=== PATIENT | female | born 1950 | race Caucasian/White ===

== ENCOUNTER → 2016-07-07 | Outpatient (CLI) | payer MEDICARE ==
[~2016-07-07] MED LIST: AMBIEN10 M1 PO; AMOXICILLIN500 M1 PO; ANASPAZ0.125 MG PO; ANTIVERT/2525 MG PO; ATIVAN0.5 MG PO; ATORVASTATIN CA20 M1 PO; AUGMENTIN 875 M1 TAB PO; BACTROBAN2% TP; CLARITIN10 MG PO; DARVOCET N 1001 TAB PO; DITROPAN XL10 MG PO; DOXYCYCLINE100 M3 PO; ECO-5325 MG PO; ERGOCALCIFER50000 IU PO; FAMOTIDINE20 MG PO; FLEXERIL10 MG PO; FLOVENT 110 M110 MCG INH; HYDROCHLOROTHIA25 M1 PO; HYDROCORTISONE2.5% R; K-TAB10 MEQ PO; KLONOPIN0.5 MG; LEVSIN0.125 M1 PO; LEXAPRO20 MG PO; LIDEX 0.05% CRE15 GM T; Lidex 0.05% Oin15 GM T; MIRALAX17 GM/PACK; MORPHINE S10 MG/5 M2 PO; MORPHINE SULFAT15 M5 PO; MORPHINE SULFAT15 MG PO; MS CONTIN PO; MS CONTIN15 MG PO; NASONEX0.05 MG/AC NS; OMEPRAZOLE D/R20 MG PO; PREDNISONE10 MG PO; PRILOSEC10 M1 PO; PRILOSEC20 MG PO; PROVENTIL0.09 MG/AC IH; RESTASIS 0.4 M0.4 M1 OP; RESTASIS0.05% OP; SUPER EPA 2002000 MG PO; TASIGNA200 MG PO; TEMAZEPAM30 MG PO; ULTRAM50 MG PO; VITAMIN D32000 IU; VITAMIN D50000 I3 PO; ZANTAC150 MG PO; ZOFRAN4 MG PO; ZOFRAN8 M1 PO
== END | disposition home or self-care (01) ==
LOC: LAB 13:18
DX: D64.9 Anemia, unspecified (principal); R53.83 Other fatigue

== ENCOUNTER → 2016-08-19 | Outpatient (CLI) | payer MEDICARE | END | disposition home or self-care (01) | LOC: US 13:23 | DX: M79.602 Pain in left arm (principal); R21 Rash and other nonspecific skin eruption; R60.0 Localized edema ==

== ENCOUNTER → 2016-09-23 | Outpatient (CLI) | payer MEDICARE | LOC: RAD 10:09 | DX: M25.572 Pain in left ankle and joints of left foot (principal); M25.472 Effusion, left ankle ==

== ENCOUNTER 2016-10-29 06:16 | Inpatient (IN) | payer MEDICARE ==
[~2016-10-29] VITALS: Ht 147.3 cm; Wt 93.9 kg
[2016-10-29] VITALS (8 sets, daily range): BP systolic 96–164; BP diastolic 50–84
[2016-10-29 06:41] LABS: BASO # 0.1 10*3/uL (0.0-0.1); BASO % 0.6 % (0.0-1.0); EOS % 0.2 % (1.0-4.0); IG # 0.1 10*3/uL (0.0-0.1); LYMPH % 6.5 % (27.0-41.0); MEAN CELL VOLUME 89.2 fl (81.0-99.0); MEAN CORPUSCULAR HGB CONC 32.6 g/dl (33.0-37.0); MEAN PLATELET VOLUME 10.5 fl (9.6-12.3); MONO # 0.8 10*3/uL (0.1-1.0); MONO % 4.9 % (3.0-9.0); NEUT % 87.4 % (47.0-73.0); PLATELET COUNT AUTOMATED 292 10*3/uL (130-400); RED BLOOD COUNT 4.82 10*6/uL (4.10-5.10); RED CELL DISTRI WIDTH 12.3 % (0-14.5)
[2016-10-29] MEDS ORDERED: RESTORIL30 M1 PO (06:43)
[2016-10-29] MEDS ORDERED: KENALOG 0.1%80 GM T (06:44)
[2016-10-29 06:49] LABS: PROTHROMBIN TIME 10.4 SECONDS (9.0-12.4)
[2016-10-29 06:57] LABS: ALBUMIN 3.8 gm/dl (3.1-4.5); ALKALINE PHOSPHATASE 93 U/L (45-117); BILIRUBIN, TOTAL 0.8 mg/dl (0.2-1.0); BUN 7 mg/dl (7-24); CARBON DIOXIDE 28 mmol/L (21-32); CHLORIDE 99 mmol/L (98-107); EST GLOM FILT AFRICAN AMERICAN > 60 ml/min; GLUCOSE 151 mg/dL (65-99); MAGNESIUM 1.9 mg/dL (1.5-2.1); POTASSIUM 3.7 mmol/L (3.5-5.1); SGOT/AST 43 IU/L (3-35); SGPT/ALT 33 U/L (12-78); SODIUM 138 mmol/L (136-145); TOTAL PROTEIN 6.9 gm/dL (6.4-8.2)
[2016-10-29 07:00] LABS: TROPONIN I 0.334 ng/ml (<0.045)
[2016-10-29] MEDS ORDERED: FERROUS SULFAT325 MG PO (10:54)
[2016-10-29 11:49] LABS: CKMB 3.1 ng/ml (0.5-3.6)
[2016-10-29 11:51] LABS: TROPONIN I 0.296 ng/ml (<0.045)
[2016-10-29 14:15] LABS: BILIRUBIN NEGATIVE (NEGATIVE); BLOOD NEGATIVE (NEGATIVE); CLARITY SL CLOUDY (CLEAR); COLOR YELLOW (YELLOW); GLUCOSE NEGATIVE (NEGATIVE); KETONE NEGATIVE (NEGATIVE); LEUKO ESTERASE NEGATIVE (NEGATIVE); NITRITE NEGATIVE (NEGATIVE); PH 5.5 (5.0-9.0); PROTEIN NEGATIVE (NEGATIVE)
[2016-10-29 14:22] LABS: WBC 0-2 wbc/hpf (0-5)
[2016-10-29 14:23] LABS: EPITHELIAL CELLS 0-2; URINE REFLEX COMMENT NO (NO)
[2016-10-30] VITALS: BP 150/58
[2016-10-30 06:03] LABS: BASO # 0.1 10*3/uL (0.0-0.1); BASO % 0.6 % (0.0-1.0); EOS # 0.1 10*3/uL (0.0-0.4); HEMATOCRIT 38.4 % (37.0-47.0); HEMOGLOBIN 12.2 g/dl (12.0-16.0); IG # 0.1 10*3/uL (0.0-0.1); LYMPH # 2.9 10*3/uL (1.3-4.4); LYMPH % 23.4 % (27.0-41.0); MEAN CELL VOLUME 92.1 fl (81.0-99.0); MEAN CORPUSCULAR HGB 29.3 pg (27.0-31.0); MEAN CORPUSCULAR HGB CONC 31.8 g/dl (33.0-37.0); MEAN PLATELET VOLUME 10.5 fl (9.6-12.3); MONO # 1.3 10*3/uL (0.1-1.0); MONO % 10.4 % (3.0-9.0); NEUT % 64.2 % (47.0-73.0); PLATELET COUNT AUTOMATED 236 10*3/uL (130-400); RED BLOOD COUNT 4.17 10*6/uL (4.10-5.10); RED CELL DISTRI WIDTH 12.5 % (0-14.5); WHITE BLOOD COUNT 12.5 10*3/uL (4.8-10.8)
[2016-10-30 06:23] LABS: PROTHROMBIN TIME 10.8 SECONDS (9.0-12.4)
[2016-10-30 06:28] LABS: BUN 7 mg/dl (7-24); CARBON DIOXIDE 27 mmol/L (21-32); CHLORIDE 110 mmol/L (98-107); EST GLOM FILT AFRICAN AMERICAN > 60 ml/min; GLUCOSE 111 mg/dL (65-99); MAGNESIUM 1.7 mg/dL (1.5-2.1); PHOSPHOROUS 1.8 mg/dL (2.5-4.9); POTASSIUM 3.7 mmol/L (3.5-5.1); SODIUM 142 mmol/L (136-145)
[2016-10-30 06:38] LABS: FREE T4 0.98 ng/dl (0.76-1.46); THYROID STIM HORMONE (HS) 0.648 uIU/ml (0.358-4.75)
[2016-10-30 06:52] LABS: VITAMIN D, 25-HYDROXY 41.4 ng/mL (30-100)
[2016-10-30 06:53] LABS: FOLIC ACID 11.49 ng/mL (>5.38)
[2016-10-30 08:00] VITALS: BP 152/72
[2016-10-30 16:00] VITALS: BP 156/85
[2016-10-31] MEDS ORDERED: ZOFRAN ODT4 MG SL ×2 (23:36→23:37)
[2016-10-31] MEDS ORDERED: FLAGYL500 MG PO ×2 (23:36→23:38)
== END 2016-10-30 18:19 | disposition home or self-care (01) | DRG 872 ==
LOC: ED 06:16 → 5E 08:47 → EDHOLD 08:47 → 5E 09:08
PROVIDERS: Emergency Medicine Emergency Medical Services; Internal Medicine
PROC: 4A02XM4 Measurement of Cardiac Total Activity, External Approach (ICD-10-PCS; principal; 2016-10-30)
PROC: 3E073KZ Introduction of Other Diagnostic Substance into Coronary Artery, Percutaneous Approach (ICD-10-PCS; 2016-10-30)
DX: A41.9 Sepsis, unspecified organism (principal); C92.10 Chronic myeloid leukemia, BCR/ABL-positive, not having achieved remission; Z68.42 Body mass index [BMI] 45.0-49.9, adult; F41.9 Anxiety disorder, unspecified; Z85.3 Personal history of malignant neoplasm of breast; F32.9 Major depressive disorder, single episode, unspecified; K21.9 Gastro-esophageal reflux disease without esophagitis; Z90.49 Acquired absence of other specified parts of digestive tract; Z90.710 Acquired absence of both cervix and uterus; Z87.891 Personal history of nicotine dependence; Z82.49 Family history of ischemic heart disease and other diseases of the circulatory system; Z88.1 Allergy status to other antibiotic agents; Z88.8 Allergy status to other drugs, medicaments and biological substances; Z88.2 Allergy status to sulfonamides; K52.9 Noninfective gastroenteritis and colitis, unspecified; R11.2 Nausea with vomiting, unspecified; E66.01 Morbid (severe) obesity due to excess calories

== ENCOUNTER 2016-10-31 21:27 | Emergency (ER) | payer MEDICARE ==
[~2016-10-31] VITALS: Ht 147.3 cm; Wt 88.5 kg
[~2016-10-31 21:27] MED LIST changes: +FERROUS SULFAT325 MG PO; +KENALOG 0.1%80 GM T; +RESTORIL30 M1 PO
[2016-10-31 21:34] VITALS: BP 203/85
[2016-10-31 22:05] LABS: BASO # 0.1 10*3/uL (0.0-0.1); BASO % 0.4 % (0.0-1.0); EOS # 0.1 10*3/uL (0.0-0.4); EOS % 0.4 % (1.0-4.0); HEMATOCRIT 38.5 % (37.0-47.0); IG # 0.1 10*3/uL (0.0-0.1); LYMPH # 1.7 10*3/uL (1.3-4.4); MEAN CELL VOLUME 86.7 fl (81.0-99.0); MEAN CORPUSCULAR HGB 29.3 pg (27.0-31.0); MEAN CORPUSCULAR HGB CONC 33.8 g/dl (33.0-37.0); MEAN PLATELET VOLUME 10.3 fl (9.6-12.3); MONO # 1.2 10*3/uL (0.1-1.0); MONO % 7.7 % (3.0-9.0); NEUT # 12.6 10*3/uL (2.3-7.9); NEUT % 80.1 % (47.0-73.0); PLATELET COUNT AUTOMATED 271 10*3/uL (130-400); RED BLOOD COUNT 4.44 10*6/uL (4.10-5.10); RED CELL DISTRI WIDTH 12.1 % (0-14.5); WHITE BLOOD COUNT 15.7 10*3/uL (4.8-10.8)
[2016-10-31 22:15] LABS: PROTHROMBIN TIME 10.8 SECONDS (9.0-12.4)
[2016-10-31 22:22] LABS: ALBUMIN 3.3 gm/dl (3.1-4.5); ALKALINE PHOSPHATASE 73 U/L (45-117); BILIRUBIN, TOTAL 0.6 mg/dl (0.2-1.0); BUN 5 mg/dl (7-24); CARBON DIOXIDE 26 mmol/L (21-32); CHLORIDE 107 mmol/L (98-107); EST GLOM FILT AFRICAN AMERICAN > 60 ml/min; GLUCOSE 140 mg/dL (65-99); POTASSIUM 3.2 mmol/L (3.5-5.1); SGOT/AST 25 IU/L (3-35); SGPT/ALT 25 U/L (12-78); SODIUM 142 mmol/L (136-145); TOTAL PROTEIN 6.4 gm/dL (6.4-8.2)
[2016-10-31 22:25] LABS: TROPONIN I 0.068 ng/ml (<0.045)
[2016-10-31] MEDS ORDERED: ZOFRAN ODT4 MG SL ×2 (23:36→23:37)
[2016-10-31] MEDS ORDERED: FLAGYL500 MG PO ×2 (23:36→23:38)
== END 2016-11-01 00:01 | disposition home or self-care (01) ==
LOC: ED 21:27
PROVIDERS: Physician Assistant
DX: K52.9 Noninfective gastroenteritis and colitis, unspecified (principal); J90 Pleural effusion, not elsewhere classified; R79.89 Other specified abnormal findings of blood chemistry; R68.83 Chills (without fever); Z88.1 Allergy status to other antibiotic agents; Z88.8 Allergy status to other drugs, medicaments and biological substances; Z88.2 Allergy status to sulfonamides; Z79.899 Other long term (current) drug therapy; Z87.891 Personal history of nicotine dependence

== ENCOUNTER 2016-11-28 15:18 | Emergency (ER) | payer MEDICARE ==
[~2016-11-28] VITALS: Ht 147.3 cm; Wt 89.8 kg
[~2016-11-28 15:18] MED LIST changes: +FLAGYL500 MG PO; +ZOFRAN ODT4 MG SL
[2016-11-28 15:25] VITALS: BP 156/71
== END 2016-11-28 16:35 | disposition home or self-care (01) ==
LOC: ED 15:18
DX: S00.03XA Contusion of scalp, initial encounter (principal); R03.0 Elevated blood-pressure reading, without diagnosis of hypertension; K21.9 Gastro-esophageal reflux disease without esophagitis; Z88.1 Allergy status to other antibiotic agents; Z88.2 Allergy status to sulfonamides; Z88.8 Allergy status to other drugs, medicaments and biological substances; Z87.891 Personal history of nicotine dependence; Z90.49 Acquired absence of other specified parts of digestive tract; W22.8XXA Striking against or struck by other objects, initial encounter; Y93.89 Activity, other specified; Y92.9 Unspecified place or not applicable; Y99.9 Unspecified external cause status

== ENCOUNTER 2017-04-21 16:25 | Emergency (ER) | payer MEDICARE ==
[~2017-04-21] VITALS: Ht 147.3 cm; Wt 87.5 kg
[2017-04-21 16:57] VITALS: BP 136/69
[2017-04-21] MEDS ORDERED: MOTRIN 600 MG E4 TAB PO (19:07)
== END 2017-04-21 18:59 | disposition home or self-care (01) ==
LOC: ED 16:25
DX: M77.9 Enthesopathy, unspecified (principal); M25.532 Pain in left wrist; Z90.710 Acquired absence of both cervix and uterus; Z90.49 Acquired absence of other specified parts of digestive tract; Z98.51 Tubal ligation status; Z98.890 Other specified postprocedural states; Z87.891 Personal history of nicotine dependence; Z79.899 Other long term (current) drug therapy; Z88.1 Allergy status to other antibiotic agents; Z88.6 Allergy status to analgesic agent; Z88.8 Allergy status to other drugs, medicaments and biological substances; Z88.2 Allergy status to sulfonamides

== ENCOUNTER → 2017-09-29 | Outpatient (CLI) | payer MEDICARE ==
[~2017-09-29] MED LIST changes: +ASPIRIN ADULT L81 M1 PO; +BUSPAR5 MG PO; +LIPITOR20 MG PO; +MOTRIN 600 MG E4 TAB PO; +NEURONTIN300 MG PO; +PHENERGAN25 M3 PO; +VITAMIN D5000 UNIT PO
== END | disposition home or self-care (01) ==
LOC: US 16:39
DX: K76.0 Fatty (change of) liver, not elsewhere classified (principal); K21.9 Gastro-esophageal reflux disease without esophagitis; Z90.710 Acquired absence of both cervix and uterus

== ENCOUNTER 2017-10-07 07:57 | Inpatient (IN) | payer MEDICARE ==
[~2017-10-07] VITALS: Ht 147.3 cm; Wt 88.9 kg
[2017-10-07] VITALS (9 sets, daily range): BP systolic 119–211; BP diastolic 55–96
--- NOTE | ~2017-10-07 | O ---
[place], [place] OPERATIVE NOTE NAME: ELIDA WILKINS [facility] #: [id number] UNIT #: [id number] ROOM: 525 DOCTOR: RISA MILLERSELMA BIRTHDATE: [birth year] DOS: 10/08/2017 HISTORY: The patient is a 66-year-old who has presented with chief complaint of epigastric pain, abdominal pain, nonspecific, history of chronic myelogenous leukemia. The patient has been on the chemotherapy therapy for the past 12 years. At the time of admission, her white blood cell was 13. H and H of 14 and 44, platelet of 286, neutrophils 10. Lactic acid was 3.8. INR of 0.9. Comprehensive metabolic panel, GFR greater than 60. Liver function tests normal. Lipase normal. BNP of 1200+. Chest x-ray, borderline cardiomegaly. CT scan of the head normal. CT scan of the abdomen and pelvis was done, there is no bowel wall thickening; however, wall inflammation in the stomach was considered, diverticulosis and no focal inflammatory disease reported. The pancreatic atrophy has been mentioned gallbladder absent. No hydronephrosis, no lymphadenopathy. I do not see any specific comment on spleen and liver in this report. PAST MEDICAL HISTORY: Associated gastroesophageal reflux, obesity, CML, breast carcinoma, cardiac dysrhythmia history, pericarditis history, and pleural effusion history. PAST SURGICAL HISTORY: T and A, lumpectomy left breast, cholecystectomy, exploratory laparotomy, hysterectomy, and tubal ligation. SOCIAL HISTORY: Has stopped smoking, nonalcohol consumer. FAMILY HISTORY: Noncontributory. ALLERGIES: QUINOLONE, FENTANYL, SULFA, TAPE, CIPROFLOXACIN, AND TOPAMAX. MEDICATIONS: Reviewed including aspirin and omeprazole. PROCEDURE: Today's procedure part of investigation is panendoscopy and colonoscopy. PREMEDICATION: Propofol. SCOPE: Olympus forward-viewing gastroscope Q10 video. REPORT: After putting the patient in left lateral position and application of lubricant to the scope, the scope was introduced; thereafter, under direct visualization, advanced through the length of esophagus without difficulty with trace of esophageal varicosity along the length of the esophagus. Noticed size small hiatal hernia seen. Gastric pouch was entered. Bile reflux gastritis noted. Antral biopsy obtained. Duodenal bulb, second and third part within normal limit. No gastric varicosity identified. The patient was gradually extubated, tolerated the procedure well. IMPRESSION: Trace esophageal varicosity, bile reflux gastritis, small hiatal hernia about 2 cm. [place], [place] OPERATIVE NOTE NAME: ELIDA WILKINS UNIT #: [id number] ROOM: 525 DOCTOR: RISA MILLER,SELMA BIRTHDATE: [birth year] PLAN AND DISCUSSION: We are going to start her on Protonix 40 mg daily and managing symptomatology of upper GI. On the other hand, we are going to check her colon today for concerns that she has had hematologic as well as breast carcinoma and abdominal pain in addition. PROCEDURE: Today's procedure part of investigation is colonoscopy. PREMEDICATION: Propofol. SCOPE: Olympus forward-viewing colonoscope 10L video. REPORT: After putting the patient in left lateral position and application of lubricant to the scope, the scope was introduced. Thereafter, under direct visualization, I advanced through the length of colon without difficulty. Colonoscopy within normal limit. Base of the cecum explored, appendiceal orifice identified, and ileocecal valve was defined. Scope gradually withdrawn under circumferential fashion. Mucosal vascularity carefully examined. No other pathology identified. The patient tolerated the procedure well. IMPRESSION: Normal colonoscopic examination. We are able to proceed with normal regular diet and symptomatic management otherwise. Blood work is not compromised and she is on multiple medications to restart all medicines as reviewed. CT scan has been reviewed. Labs reviewed. SELMA LORD MD CM:OPRECORD:OPERATIVE NOTE [id number] SELMA LORD MD 10/13/17 1624 interface
[~2017-10-07 07:57] MED LIST changes: -ASPIRIN ADULT L81 M1 PO; -BUSPAR5 MG PO; -LIPITOR20 MG PO; -NEURONTIN300 MG PO; -PHENERGAN25 M3 PO; -VITAMIN D5000 UNIT PO
[2017-10-07 08:36] LABS: BASO # 0.1 10*3/uL (0.0-0.1); EOS # 0.3 10*3/uL (0.0-0.4); HEMATOCRIT 44.3 % (37.0-47.0); HEMOGLOBIN 14.5 g/dl (12.0-16.0); LYMPH # 1.9 10*3/uL (1.3-4.4); LYMPH % 14.4 % (27.0-41.0); MEAN CELL VOLUME 90.2 fl (81.0-99.0); MEAN CORPUSCULAR HGB 29.5 pg (27.0-31.0); MEAN CORPUSCULAR HGB CONC 32.7 g/dl (33.0-37.0); MEAN PLATELET VOLUME 10.8 fl (9.6-12.3); MONO # 0.7 10*3/uL (0.1-1.0); MONO % 5.4 % (3.0-9.0); NEUT # 10.2 10*3/uL (2.3-7.9); NEUT % 76.6 % (47.0-73.0); PLATELET COUNT AUTOMATED 286 10*3/uL (130-400); RED BLOOD COUNT 4.91 10*6/uL (4.10-5.10); RED CELL DISTRI WIDTH 12.2 % (0-14.5); WHITE BLOOD COUNT 13.4 10*3/uL (4.8-10.8)
[2017-10-07 08:58] LABS: ACT PARTIAL THROMBO TIME 22.5 SECONDS (20.8-31.5); INTERNATIONAL NORM RATIO 0.9 (2.0-3.5)
[2017-10-07 09:10] LABS: ALBUMIN 3.8 gm/dl (3.1-4.5); ALKALINE PHOSPHATASE 93 U/L (45-117); BUN 7 mg/dl (7-24); CHLORIDE 105 mmol/L (98-107); CREATININE 0.84 mg/dL (0.55-1.02); LIPASE 70 U/L (73-393); POTASSIUM 4.2 mmol/L (3.5-5.1); SGOT/AST 25 IU/L (3-35); SGPT/ALT 25 U/L (12-78); SODIUM 142 mmol/L (136-145); TOTAL PROTEIN 6.6 gm/dL (6.4-8.2)
[2017-10-07 09:12] LABS: TROPONIN I < 0.015 ng/ml (<0.045)
[2017-10-07 09:53] LABS: BILIRUBIN NEGATIVE (NEGATIVE); BLOOD NEGATIVE (NEGATIVE); CLARITY CLEAR (CLEAR); COLOR YELLOW (YELLOW); GLUCOSE NEGATIVE (NEGATIVE); KETONE NEGATIVE (NEGATIVE); LEUKO ESTERASE NEGATIVE (NEGATIVE); NITRITE NEGATIVE (NEGATIVE); PH 6.5 (5.0-9.0); SPECIFIC GRAVITY <= 1.005 (1.005-1.030); UROBILINOGEN 0.2 E.U./dl (0.2-1.0)
[2017-10-07 10:04] LABS: BACTERIA TRACE
[2017-10-07] MEDS ORDERED: VITAMIN D5000 UNIT PO (13:53)
[2017-10-07] MEDS ORDERED: LIPITOR20 MG PO (13:53)
[2017-10-07] MEDS ORDERED: ASPIRIN ADULT L81 M1 PO (13:53)
[2017-10-07] MEDS ORDERED: BUSPAR5 MG PO (13:54)
[2017-10-07] MEDS ORDERED: CLARITIN10 MG PO (13:54)
[2017-10-07] MEDS ORDERED: NEURONTIN300 MG PO (13:54)
[2017-10-08] VITALS (9 sets, daily range): BP systolic 128–195; BP diastolic 55–90
[2017-10-08 06:30] LABS: BASO # 0.1 10*3/uL (0.0-0.1); EOS # 0.4 10*3/uL (0.0-0.4); EOS % 2.9 % (1.0-4.0); HEMATOCRIT 40.1 % (37.0-47.0); HEMOGLOBIN 12.8 g/dl (12.0-16.0); LYMPH # 3.1 10*3/uL (1.3-4.4); LYMPH % 22.4 % (27.0-41.0); MEAN CELL VOLUME 92.2 fl (81.0-99.0); MEAN CORPUSCULAR HGB 29.4 pg (27.0-31.0); MEAN CORPUSCULAR HGB CONC 31.9 g/dl (33.0-37.0); MEAN PLATELET VOLUME 10.5 fl (9.6-12.3); MONO # 1.3 10*3/uL (0.1-1.0); MONO % 9.2 % (3.0-9.0); NEUT # 8.9 10*3/uL (2.3-7.9); PLATELET COUNT AUTOMATED 252 10*3/uL (130-400); RED BLOOD COUNT 4.35 10*6/uL (4.10-5.10); RED CELL DISTRI WIDTH 12.3 % (0-14.5); WHITE BLOOD COUNT 13.9 10*3/uL (4.8-10.8)
[2017-10-08 07:21] LABS: ALBUMIN 3.3 gm/dl (3.1-4.5); ALKALINE PHOSPHATASE 83 U/L (45-117); BUN 4 mg/dl (7-24); CHLORIDE 111 mmol/L (98-107); CHOLESTEROL 121 mg/dL (<200); HDL CHOLESTEROL 56 mg/dl (40-60); LDL CHOLESTEROL 36 mg/dL (9-159); PHOSPHOROUS 3.6 mg/dL (2.5-4.9); POTASSIUM 3.6 mmol/L (3.5-5.1); SGOT/AST 21 IU/L (3-35); SGPT/ALT 20 U/L (12-78); SODIUM 145 mmol/L (136-145); TOTAL PROTEIN 5.8 gm/dL (6.4-8.2); TRIGLYCERIDES 145 mg/dl (<150); VLDL CHOLESTEROL 29 mg/dL (6-40)
[2017-10-08 07:22] LABS: FREE T4 0.97 ng/dl (0.76-1.46)
[2017-10-08 07:32] LABS: VITAMIN D, 25-HYDROXY 30.3 ng/mL (30-100)
[2017-10-09] VITALS: BP 153/58
[2017-10-09 08:00] VITALS: BP 123/92
[2017-10-09 12:00] VITALS: BP 142/52
[2017-10-09] MEDS ORDERED: PHENERGAN25 M3 PO (12:52)
== END 2017-10-09 14:22 | disposition home or self-care (01) | DRG 392 ==
LOC: ED 07:57 → EDHOLD 09:37 → 5E 09:37
PROVIDERS: Emergency Medicine; Registered Nurse
PROC: 0DB68ZX Excision of Stomach, Via Natural or Artificial Opening Endoscopic, Diagnostic (ICD-10-PCS; principal; 2017-10-08)
PROC: 0DJD8ZZ Inspection of Lower Intestinal Tract, Via Natural or Artificial Opening Endoscopic (ICD-10-PCS; principal; 2017-10-08)
DX: K29.70 Gastritis, unspecified, without bleeding (principal); I85.00 Esophageal varices without bleeding; C92.10 Chronic myeloid leukemia, BCR/ABL-positive, not having achieved remission; C92.90 Myeloid leukemia, unspecified, not having achieved remission; E44.1 Mild protein-calorie malnutrition; E66.01 Morbid (severe) obesity due to excess calories; Z68.41 Body mass index [BMI] 40.0-44.9, adult; K52.9 Noninfective gastroenteritis and colitis, unspecified; R73.9 Hyperglycemia, unspecified; K21.9 Gastro-esophageal reflux disease without esophagitis; F41.9 Anxiety disorder, unspecified; F32.9 Major depressive disorder, single episode, unspecified; K44.9 Diaphragmatic hernia without obstruction or gangrene; K57.90 Diverticulosis of intestine, part unspecified, without perforation or abscess without bleeding; Z88.8 Allergy status to other drugs, medicaments and biological substances; Z88.2 Allergy status to sulfonamides; Z79.899 Other long term (current) drug therapy; Z79.82 Long term (current) use of aspirin; Z85.3 Personal history of malignant neoplasm of breast; Z90.89 Acquired absence of other organs; Z90.49 Acquired absence of other specified parts of digestive tract; Z90.710 Acquired absence of both cervix and uterus; Z98.51 Tubal ligation status; Z87.891 Personal history of nicotine dependence; Z82.49 Family history of ischemic heart disease and other diseases of the circulatory system; Z83.3 Family history of diabetes mellitus; Z83.6 Family history of other diseases of the respiratory system; Z92.21 Personal history of antineoplastic chemotherapy

== ENCOUNTER 2018-01-31 14:16 | Inpatient (IN) | payer MEDICARE ==
[~2018-01-31] VITALS: Ht 144.7 cm; Wt 90.4 kg
--- NOTE | ~2018-01-31 | EKG ---
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
[~2018-01-31 14:16] MED LIST changes: +ASPIRIN ADULT L81 M1 PO; +BUSPAR5 MG PO; +LIPITOR20 MG PO; +NEURONTIN300 MG PO; +PHENERGAN25 M3 PO; +VITAMIN D5000 UNIT PO
[2018-01-31 14:17] VITALS: BP 161/73
[2018-01-31 14:57] LABS: BASO # 0.1 10*3/uL (0.0-0.1); BASO % 0.4 % (0.0-1.0); HEMATOCRIT 40.8 % (37.0-47.0); HEMOGLOBIN 14.1 g/dl (12.0-16.0); LYMPH # 1.9 10*3/uL (1.3-4.4); MEAN CELL VOLUME 85.5 fl (81.0-99.0); MEAN CORPUSCULAR HGB 29.6 pg (27.0-31.0); MEAN CORPUSCULAR HGB CONC 34.6 g/dl (33.0-37.0); MEAN PLATELET VOLUME 10.4 fl (9.6-12.3); MONO # 0.9 10*3/uL (0.1-1.0); MONO % 4.4 % (3.0-9.0); NEUT # 17.9 10*3/uL (2.3-7.9); NEUT % 85.5 % (47.0-73.0); PLATELET COUNT AUTOMATED 316 10*3/uL (130-400); RED BLOOD COUNT 4.77 10*6/uL (4.10-5.10); RED CELL DISTRI WIDTH 12.4 % (0-14.5)
[2018-01-31 15:05] LABS: ACT PARTIAL THROMBO TIME 23.4 SECONDS (20.8-31.5)
[2018-01-31 15:15] LABS: ALBUMIN 3.6 gm/dl (3.1-4.5); ALKALINE PHOSPHATASE 84 U/L (45-117); BUN 5 mg/dl (7-24); CHLORIDE 103 mmol/L (98-107); CREATININE 0.91 mg/dL (0.55-1.02); POTASSIUM 3.3 mmol/L (3.5-5.1); SGOT/AST 17 IU/L (3-35); SGPT/ALT 21 U/L (12-78); SODIUM 138 mmol/L (136-145); TOTAL PROTEIN 6.9 gm/dL (6.4-8.2)
[2018-01-31 15:17] LABS: TROPONIN I 0.082 ng/ml (<0.045)
[2018-01-31 15:53] VITALS: BP 155/68
[2018-01-31 16:30] VITALS: BP 134/63
[2018-01-31] MEDS ORDERED: XIIDRA1 EACH OP (16:48)
[2018-01-31] MEDS ORDERED: MIRALAX POWDER17 G1 PO (16:49)
[2018-01-31 20:00] VITALS: BP 147/58
[2018-01-31 21:03] LABS: BILIRUBIN NEGATIVE (NEGATIVE); CLARITY CLEAR (CLEAR); COLOR YELLOW (YELLOW); GLUCOSE NEGATIVE (NEGATIVE); KETONE NEGATIVE (NEGATIVE)
[2018-01-31 21:04] LABS: BLOOD NEGATIVE (NEGATIVE); PH 6.5 (5.0-9.0); SPECIFIC GRAVITY < 1.005 (1.005-1.030)
[2018-01-31 21:06] LABS: BACTERIA TRACE; LEUKO ESTERASE NEGATIVE (NEGATIVE); NITRITE NEGATIVE (NEGATIVE); RBC 0-2 rbc/hpf (0-2); WBC 0-2 wbc/hpf (0-5)
[2018-02-01] VITALS: BP 132/61
[2018-02-01 05:15] LABS: BUN 6 mg/dl (7-24); CHLORIDE 106 mmol/L (98-107); CREATININE 0.59 mg/dL (0.55-1.02); POTASSIUM 3.7 mmol/L (3.5-5.1); SODIUM 140 mmol/L (136-145)
[2018-02-01 05:51] LABS: BASO # 0.1 10*3/uL (0.0-0.1); BASO % 0.5 % (0.0-1.0); EOS # 0.3 10*3/uL (0.0-0.4); EOS % 1.7 % (1.0-4.0); HEMATOCRIT 37.9 % (37.0-47.0); HEMOGLOBIN 12.8 g/dl (12.0-16.0); LYMPH # 4.5 10*3/uL (1.3-4.4); LYMPH % 24.6 % (27.0-41.0); MEAN CELL VOLUME 87.7 fl (81.0-99.0); MEAN CORPUSCULAR HGB 29.6 pg (27.0-31.0); MEAN CORPUSCULAR HGB CONC 33.8 g/dl (33.0-37.0); MEAN PLATELET VOLUME 10.9 fl (9.6-12.3); MONO # 1.5 10*3/uL (0.1-1.0); NEUT # 11.9 10*3/uL (2.3-7.9); NEUT % 64.7 % (47.0-73.0); PLATELET COUNT AUTOMATED 256 10*3/uL (130-400); RED BLOOD COUNT 4.32 10*6/uL (4.10-5.10); RED CELL DISTRI WIDTH 12.4 % (0-14.5); WHITE BLOOD COUNT 18.4 10*3/uL (4.8-10.8)
[2018-02-01 05:58] LABS: PHOSPHOROUS 3.5 mg/dL (2.5-4.9)
[2018-02-01 06:05] LABS: FREE T4 0.95 ng/dl (0.76-1.46); THYROID STIM HORMONE (HS) 2.19 uIU/ml (0.358-4.75)
[2018-02-01 07:49] LABS: VITAMIN D, 25-HYDROXY 36.5 ng/mL (30-100)
[2018-02-01 08:00] VITALS: BP 130/72
[2018-02-01 08:01] VITALS: BP 119/59
[2018-02-01 12:00] VITALS: BP 136/62
[2018-02-01 16:00] VITALS: BP 141/74
[2018-02-01 20:00] VITALS: BP 147/58
[2018-02-02] VITALS: BP 143/60
[2018-02-02 08:30] VITALS: BP 136/78
[2018-02-27] MEDS ORDERED: TASIGNA200 MG PO (23:51)
== END 2018-02-02 10:51 | disposition home or self-care (01) | DRG 313 ==
LOC: ED 14:16 → EDHOLD 15:52 → 4E 15:52
PROVIDERS: Internal Medicine; Nurse Practitioner Family
DX: R07.89 Other chest pain (principal); E87.2 Acidosis; E44.1 Mild protein-calorie malnutrition; C92.10 Chronic myeloid leukemia, BCR/ABL-positive, not having achieved remission; Z68.41 Body mass index [BMI] 40.0-44.9, adult; M79.2 Neuralgia and neuritis, unspecified; R74.8 Abnormal levels of other serum enzymes; E87.6 Hypokalemia; M25.562 Pain in left knee; K21.9 Gastro-esophageal reflux disease without esophagitis; F32.9 Major depressive disorder, single episode, unspecified; E66.01 Morbid (severe) obesity due to excess calories; R73.9 Hyperglycemia, unspecified; I35.0 Nonrheumatic aortic (valve) stenosis; F41.9 Anxiety disorder, unspecified; Z82.49 Family history of ischemic heart disease and other diseases of the circulatory system; Z82.5 Family history of asthma and other chronic lower respiratory diseases; Z88.1 Allergy status to other antibiotic agents; Z88.5 Allergy status to narcotic agent; Z88.2 Allergy status to sulfonamides; Z79.82 Long term (current) use of aspirin; Z91.048 Other nonmedicinal substance allergy status; Z79.899 Other long term (current) drug therapy; Z85.3 Personal history of malignant neoplasm of breast; Z90.710 Acquired absence of both cervix and uterus; Z98.51 Tubal ligation status; Z90.49 Acquired absence of other specified parts of digestive tract; Z87.891 Personal history of nicotine dependence; Z83.3 Family history of diabetes mellitus

== ENCOUNTER 2018-02-10 15:11 | Inpatient (IN) | payer MEDICARE ==
[~2018-02-10] VITALS: Ht 147.3 cm; Wt 93.1 kg
--- NOTE | ~2018-02-10 | PR ---
[place], [place] PROGRESS NOTE [id number] UNIT #: [id number] ROOM: 503 DOCTOR: BRANDI HELLER MD BIRTHDATE: [birth year] DOS: 02/13/2018 CARDIOLOGY PROGRESS NOTE SUBJECTIVE: The patient was seen today, 02/13/2018, at her bedside. She states that her stomach still hurts and in fact is worse than it was yesterday. She denies vomiting, but has no appetite. She believes that food is making it worse. She did have a CAT scan of the abdomen today, which was unremarkable. She moved her bowels after that, but stated that the pain got worse, nonetheless. She denies any chest pain or shortness of breath. PHYSICAL EXAMINATION: VITAL SIGNS: Her pulse is 76 and regular, blood pressure is 180/76. She weighs 93.1 kg and has a body mass index of 42.9. NECK: Supple. She has no jugular distention. Carotids are full. LUNGS: Respirations are unlabored. Her chest is clear to auscultation and percussion. She has no presacral edema. HEART: Has a regular rhythm with a fourth heart sound, but no third heart sound. ABDOMEN: Distended and diffusely tender. Bowel sounds are active. EXTREMITIES: Showed no edema. The etiology of the patient's pain is not yet clear, but certainly does not appear to be cardiac in origin. Her blood pressure remains elevated. IMPRESSIONS: 1. Abdominal pain, etiology to be determined. 2. History of CML treated with chemotherapy for several years. 3. Mild elevation in troponin without diagnostic rise and fall pattern. 4. Pharmacologic stress test 10/30/2016 showed normal myocardial perfusion with an ejection fraction of 90%. I have discussed her situation with Dr. Venkata Quiroz. He will be reviewing her CT scan and probably getting an ultrasound picture of her abdomen. If a diagnosis is not apparent then consultation with GI or Surgery may be helpful. At this point, I do not see any indication for further cardiac testing. I thank the hospitalist physicians for asking our advice regarding her care. [place], [place] PROGRESS NOTE NAME: YUVAL WILKINSABDIRAHMAN Ramsey UNIT #: [id number] ROOM: 503 DOCTOR: BRANDI HELLER MD BIRTHDATE: [birth year] BRANDI HELLER MD CM:PNTRANS 1534 5 BRANDI HELLER MD 02/14/186 interface
--- NOTE | ~2018-02-10 | PR ---
[place], [place] PROGRESS NOTE NAME: ELIDA WLIKINS [facility] #: [id number] UNIT #: [id number] ROOM: 503 DOCTOR: BRANDI HELLER MD BIRTHDATE: [birth year] DOS: 02/12/2018 SUBJECTIVE: The patient was seen at her bedside today 02/12/2018 for followup of chest discomfort. She is a 67-year-old woman who has a history of CML (chronic myelocytic leukemia). She has been treated with chemotherapy for several years. She did have acute pericarditis which required a pericardial window several years ago; however, her most recent echocardiogram done on 02/01/2018 showed no pericardial effusion and normal left ventricular filling with normal ejection fraction. She presented to the hospital on this occasion with chest pressure along with dyspnea on exertion. She did have an elevated troponin level at 0.686, but review of the records indicates that her troponin level has been mildly elevated since 10/2016. Her most recent stress test on 10/30/2016 showed normal myocardial perfusion without any evidence for ischemia. The ejection fraction was normal and calculated to be 90%. Today, the patient states that she feels "lousy." She complains of nausea and abdominal discomfort, which she states is a new problem for her. She denies any chest pain today. PHYSICAL EXAMINATION: VITAL SIGNS: Her pulse is 60 and regular, blood pressure is 157/85. She is afebrile. She weighs 93.1 kilograms. NECK: Supple. She has no jugular distention. Carotids are full. LUNGS: Respirations are unlabored. Her chest is clear. HEART: Has a regular rhythm. She has a fourth heart sound, but no third heart sound. Her PMI is not displaced. There is no precordial heave, lift, thrill, or rub. ABDOMEN: Soft and normally active. It is diffusely tender. EXTREMITIES: Showed no edema. Pedal pulses are full. Etiology of her symptoms is not yet clear. It has been over a year since her last stress test. We will continue to observe her in the hospital tomorrow, and if her symptoms do not resolve, we probably will proceed with a risk stratifying stress test on 02/14/2018. PLAN: For now, we will continue to observe her clinically. We thank the hospitalist physicians for asking our advice regarding her care. [place], [place] PROGRESS NOTE NAME: ELIDA WILKINS UNIT #: [id number] ROOM: 503 DOCTOR: BRANDI HELLER MD BIRTHDATE: [birth year] BRANDI HELLER MD CM:PNTRANS 1456 050 BRANDI HELLER MD 02/13/18 0503 interface
--- NOTE | ~2018-02-10 | EKG ---
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
--- NOTE | ~2018-02-10 | EKG ---
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
[2018-02-10 15:11] VITALS: BP 167/68
[~2018-02-10 15:11] MED LIST changes: +MIRALAX POWDER17 G1 PO; +XIIDRA1 EACH OP
[2018-02-10 15:59] LABS: HEMATOCRIT 37.9 % (37.0-47.0); HEMOGLOBIN 12.7 g/dl (12.0-16.0); MEAN CELL VOLUME 88.6 fl (81.0-99.0); MEAN CORPUSCULAR HGB 29.7 pg (27.0-31.0); MEAN CORPUSCULAR HGB CONC 33.5 g/dl (33.0-37.0); MEAN PLATELET VOLUME 10.2 fl (9.6-12.3); PLATELET COUNT AUTOMATED 256 10*3/uL (130-400); RED BLOOD COUNT 4.28 10*6/uL (4.10-5.10); RED CELL DISTRI WIDTH 12.6 % (0-14.5); WHITE BLOOD COUNT 16.7 10*3/uL (4.8-10.8)
[2018-02-10 16:19] LABS: ALBUMIN 3.4 gm/dl (3.1-4.5); ALKALINE PHOSPHATASE 101 U/L (45-117); BUN 5 mg/dl (7-24); CHLORIDE 96 mmol/L (98-107); CREATININE 0.72 mg/dL (0.55-1.02); POTASSIUM 3.7 mmol/L (3.5-5.1); SGOT/AST 18 IU/L (3-35); SGPT/ALT 27 U/L (12-78); SODIUM 131 mmol/L (136-145); TOTAL PROTEIN 6.6 gm/dL (6.4-8.2)
[2018-02-10 16:20] LABS: BASOPHILS 1 % (0-1); PLATELET SUFFICIENCY NORMAL (NORMAL); TOTAL CELLS COUNTED 100 #CELLS
[2018-02-10 16:22] LABS: TROPONIN I 0.686 ng/ml (<0.045)
[2018-02-10 17:03] VITALS: BP 148/57
[2018-02-10 17:26] LABS: BILIRUBIN NEGATIVE (NEGATIVE); BLOOD NEGATIVE (NEGATIVE); CLARITY CLEAR (CLEAR); COLOR YELLOW (YELLOW); GLUCOSE NEGATIVE (NEGATIVE); KETONE NEGATIVE (NEGATIVE); LEUKO ESTERASE TRACE (NEGATIVE); NITRITE NEGATIVE (NEGATIVE); PH 7.5 (5.0-9.0); SPECIFIC GRAVITY <= 1.005 (1.005-1.030)
[2018-02-10 17:32] LABS: BACTERIA TRACE; RBC 0-2 rbc/hpf (0-2)
[2018-02-10 17:38] VITALS: BP 186/84
[2018-02-10 20:00] VITALS: BP 172/71
[2018-02-11] VITALS (7 sets, daily range): BP systolic 101–181; BP diastolic 65–92
[2018-02-11 06:23] LABS: BUN 6 mg/dl (7-24); CHLORIDE 103 mmol/L (98-107); CREATININE 0.72 mg/dL (0.55-1.02); PHOSPHOROUS 1.4 mg/dL (2.5-4.9); POTASSIUM 3.2 mmol/L (3.5-5.1); SODIUM 138 mmol/L (136-145)
[2018-02-11 06:35] LABS: BASO % 0.2 % (0.0-1.0); EOS % 0.1 % (1.0-4.0); HEMOGLOBIN 13.8 g/dl (12.0-16.0); LYMPH # 1.2 10*3/uL (1.3-4.4); LYMPH % 6.8 % (27.0-41.0); MEAN CORPUSCULAR HGB 29.6 pg (27.0-31.0); MEAN CORPUSCULAR HGB CONC 33.7 g/dl (33.0-37.0); MEAN PLATELET VOLUME 11.2 fl (9.6-12.3); MONO # 0.7 10*3/uL (0.1-1.0); MONO % 4.2 % (3.0-9.0); NEUT # 14.8 10*3/uL (2.3-7.9); NEUT % 88.3 % (47.0-73.0); PLATELET COUNT AUTOMATED 330 10*3/uL (130-400); RED BLOOD COUNT 4.66 10*6/uL (4.10-5.10); RED CELL DISTRI WIDTH 12.5 % (0-14.5); WHITE BLOOD COUNT 16.8 10*3/uL (4.8-10.8)
[2018-02-12] VITALS: BP 114/77
[2018-02-12 06:45] LABS: BASO % 0.1 % (0.0-1.0); LYMPH # 1.5 10*3/uL (1.3-4.4); MEAN CELL VOLUME 87.6 fl (81.0-99.0); MEAN CORPUSCULAR HGB 29.7 pg (27.0-31.0); MEAN CORPUSCULAR HGB CONC 33.9 g/dl (33.0-37.0); MONO # 1.5 10*3/uL (0.1-1.0); MONO % 6.7 % (3.0-9.0); NEUT # 18.4 10*3/uL (2.3-7.9); NEUT % 85.5 % (47.0-73.0); PLATELET COUNT AUTOMATED 282 10*3/uL (130-400); RED CELL DISTRI WIDTH 12.8 % (0-14.5); WHITE BLOOD COUNT 21.5 10*3/uL (4.8-10.8)
[2018-02-12 06:49] LABS: BUN 8 mg/dl (7-24); CHLORIDE 98 mmol/L (98-107); CREATININE 0.58 mg/dL (0.55-1.02); PHOSPHOROUS 2.6 mg/dL (2.5-4.9); POTASSIUM 2.9 mmol/L (3.5-5.1); SODIUM 135 mmol/L (136-145)
[2018-02-12 06:53] LABS: HEMATOCRIT 33.3 % (37.0-47.0); HEMOGLOBIN 11.3 g/dl (12.0-16.0)
[2018-02-12 08:00] VITALS: BP 144/72
[2018-02-12 12:00] VITALS: BP 157/85
[2018-02-12 16:00] VITALS: BP 189/81
[2018-02-12 20:00] VITALS: BP 163/72
[2018-02-13] VITALS (8 sets, daily range): BP systolic 160–206; BP diastolic 70–88
[2018-02-13 05:59] LABS: HEMOGLOBIN 12.2 g/dl (12.0-16.0); MEAN CELL VOLUME 86.3 fl (81.0-99.0); MEAN CORPUSCULAR HGB 29.3 pg (27.0-31.0); MEAN CORPUSCULAR HGB CONC 33.9 g/dl (33.0-37.0); MEAN PLATELET VOLUME 10.9 fl (9.6-12.3); PLATELET COUNT AUTOMATED 299 10*3/uL (130-400); RED BLOOD COUNT 4.17 10*6/uL (4.10-5.10); RED CELL DISTRI WIDTH 12.6 % (0-14.5); WHITE BLOOD COUNT 22.9 10*3/uL (4.8-10.8)
[2018-02-13 06:12] LABS: BUN 10 mg/dl (7-24); CHLORIDE 98 mmol/L (98-107); CREATININE 0.58 mg/dL (0.55-1.02); POTASSIUM 3.2 mmol/L (3.5-5.1); SODIUM 135 mmol/L (136-145)
[2018-02-13 06:44] LABS: ATYPICAL LYMPHS 1 % (0-0); TOTAL CELLS COUNTED 100 #CELLS
[2018-02-13 06:45] LABS: PLATELET SUFFICIENCY NORMAL (NORMAL)
[2018-02-14] VITALS (7 sets, daily range): BP systolic 147–188; BP diastolic 62–92
[2018-02-14 05:51] LABS: BUN 9 mg/dl (7-24); CHLORIDE 94 mmol/L (98-107); CREATININE 0.76 mg/dL (0.55-1.02); POTASSIUM 3.1 mmol/L (3.5-5.1); SODIUM 130 mmol/L (136-145)
[2018-02-14 05:52] LABS: HEMATOCRIT 38.2 % (37.0-47.0); HEMOGLOBIN 13.3 g/dl (12.0-16.0); MEAN CELL VOLUME 84.5 fl (81.0-99.0); MEAN CORPUSCULAR HGB 29.4 pg (27.0-31.0); MEAN CORPUSCULAR HGB CONC 34.8 g/dl (33.0-37.0); MEAN PLATELET VOLUME 10.8 fl (9.6-12.3); PLATELET COUNT AUTOMATED 333 10*3/uL (130-400); RED BLOOD COUNT 4.52 10*6/uL (4.10-5.10); RED CELL DISTRI WIDTH 12.5 % (0-14.5); WHITE BLOOD COUNT 22.1 10*3/uL (4.8-10.8)
[2018-02-14 05:55] LABS: TROPONIN I 0.053 ng/ml (<0.045)
[2018-02-14 06:37] LABS: ACT PARTIAL THROMBO TIME 20.7 SECONDS (20.8-31.5); INTERNATIONAL NORM RATIO 1.1 (2.0-3.5)
[2018-02-14 07:16] LABS: PLATELET SUFFICIENCY NORMAL (NORMAL); TOTAL CELLS COUNTED 100 #CELLS
[2018-02-14] MEDS ORDERED: LISINOPRIL20 MG PO (17:54)
[2018-02-14] MEDS ORDERED: ZITHROMAX500 MG PO (17:54)
[2018-02-14] MEDS ORDERED: IMDUR SA30 MG PO (17:54)
[2018-02-14] MEDS ORDERED: LOPRESSOR25 MG PO (17:54)
[2018-02-14] MEDS ORDERED: PREDNISONE10 MG PO (17:54)
[2018-02-27] MEDS ORDERED: TASIGNA200 MG PO (23:51)
== END 2018-02-14 18:36 | disposition home health service (06) | DRG 871 ==
LOC: ED 15:11 → EDHOLD 16:43 → ICCU 16:43 → EDHOLD 16:53 → ICCU 17:27 → 5E 02-12 06:58
PROVIDERS: Family Medicine; Internal Medicine; Nurse Practitioner Family
DX: A41.9 Sepsis, unspecified organism (principal); J18.9 Pneumonia, unspecified organism; E87.1 Hypo-osmolality and hyponatremia; E44.1 Mild protein-calorie malnutrition; I16.1 Hypertensive emergency; J44.1 Chronic obstructive pulmonary disease with (acute) exacerbation; J44.0 Chronic obstructive pulmonary disease with (acute) lower respiratory infection; I31.8 Other specified diseases of pericardium; C92.10 Chronic myeloid leukemia, BCR/ABL-positive, not having achieved remission; J98.11 Atelectasis; Z68.44 Body mass index [BMI] 60.0-69.9, adult; R74.8 Abnormal levels of other serum enzymes; I49.8 Other specified cardiac arrhythmias; K21.9 Gastro-esophageal reflux disease without esophagitis; K76.0 Fatty (change of) liver, not elsewhere classified; K44.9 Diaphragmatic hernia without obstruction or gangrene; K57.30 Diverticulosis of large intestine without perforation or abscess without bleeding; I51.7 Cardiomegaly; E66.01 Morbid (severe) obesity due to excess calories; R73.9 Hyperglycemia, unspecified; R10.9 Unspecified abdominal pain; F32.9 Major depressive disorder, single episode, unspecified; F41.9 Anxiety disorder, unspecified; Z98.890 Other specified postprocedural states; Z88.4 Allergy status to anesthetic agent; Z88.1 Allergy status to other antibiotic agents; Z88.2 Allergy status to sulfonamides; Z91.048 Other nonmedicinal substance allergy status; Z90.49 Acquired absence of other specified parts of digestive tract; Z90.710 Acquired absence of both cervix and uterus; Z98.51 Tubal ligation status; Z87.891 Personal history of nicotine dependence; Z82.49 Family history of ischemic heart disease and other diseases of the circulatory system; Z82.5 Family history of asthma and other chronic lower respiratory diseases; Z83.3 Family history of diabetes mellitus; Z85.3 Personal history of malignant neoplasm of breast; Z79.82 Long term (current) use of aspirin; Z79.899 Other long term (current) drug therapy; Z92.21 Personal history of antineoplastic chemotherapy

== ENCOUNTER 2018-03-28 14:43 | Emergency (ER) | payer MEDICARE ==
[~2018-03-28] VITALS: Wt 89.8 kg
--- NOTE | ~2018-03-28 | EKG ---
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: : 1950 Requested By: LYSSA MCGHEE DNP Order Number: [id number] Reading MD: Olegario Shelton MD Measurements Intervals [place] Rate: 73 P: 83 ID: 155 QRS: 42 QRSD: 88 T: 22 QT: 450 QTc: 496 Interpretive Statements Sinus rhythm Low voltage, precordial leads Borderline prolonged QT interval Compared to ECG 02/27/2018 23:41:22 Low QRS voltage now present Myocardial infarct finding no longer present Possible ischemia no longer present Electronically Signed On 03-29-2018 4:20:49 PST by Olegario Shelton MD CM:EKGRPT:ELECTROCARDIOGRAM REPORT 1536 0420 LYSSA MCGHEE DNP EPIPHANY DRAFT REPORT LYSSA MCGHEE DNP
[~2018-03-28 14:43] MED LIST changes: +IMDUR SA30 MG PO; +LISINOPRIL20 MG PO; +LOPRESSOR25 MG PO; +ZITHROMAX500 MG PO
[2018-03-28 15:27] LABS: BASO # 0.1 10*3/uL (0.0-0.1); BASO % 0.4 % (0.0-1.0); HEMATOCRIT 33.6 % (37.0-47.0); HEMOGLOBIN 11.5 g/dl (12.0-16.0); LYMPH # 1.7 10*3/uL (1.3-4.4); LYMPH % 9.1 % (27.0-41.0); MEAN CELL VOLUME 88.4 fl (81.0-99.0); MEAN CORPUSCULAR HGB 30.3 pg (27.0-31.0); MEAN CORPUSCULAR HGB CONC 34.2 g/dl (33.0-37.0); MEAN PLATELET VOLUME 10.5 fl (9.6-12.3); MONO % 5.6 % (3.0-9.0); NEUT # 15.6 10*3/uL (2.3-7.9); NEUT % 84.5 % (47.0-73.0); PLATELET COUNT AUTOMATED 271 10*3/uL (130-400); RED CELL DISTRI WIDTH 12.5 % (0-14.5); WHITE BLOOD COUNT 18.5 10*3/uL (4.8-10.8)
[2018-03-28 15:36] LABS: ACT PARTIAL THROMBO TIME 24.5 SECONDS (20.8-31.5); INTERNATIONAL NORM RATIO 1.1 (2.0-3.5)
[2018-03-28 15:54] LABS: ALKALINE PHOSPHATASE 102 U/L (45-117); BUN 3 mg/dl (7-24); CHLORIDE 103 mmol/L (98-107); CREATININE 0.79 mg/dL (0.55-1.02); LIPASE 68 U/L (73-393); POTASSIUM 3.4 mmol/L (3.5-5.1); SGOT/AST 15 IU/L (3-35); SGPT/ALT 20 U/L (12-78); SODIUM 135 mmol/L (136-145); TOTAL PROTEIN 5.7 gm/dL (6.4-8.2); TROPONIN I < 0.015 ng/ml (<0.045)
[2018-03-28 17:51] LABS: BILIRUBIN NEGATIVE (NEGATIVE); BLOOD NEGATIVE (NEGATIVE); CLARITY SL CLOUDY (CLEAR); COLOR YELLOW (YELLOW); GLUCOSE TRACE (NEGATIVE); KETONE NEGATIVE (NEGATIVE); LEUKO ESTERASE 2+ (NEGATIVE); NITRITE NEGATIVE (NEGATIVE); PH 5.5 (5.0-9.0); SPECIFIC GRAVITY >= 1.030 (1.005-1.030); UROBILINOGEN 0.2 E.U./dl (0.2-1.0)
[2018-03-28 18:00] LABS: BACTERIA 2+; WBC TNTC wbc/hpf (0-5)
[2018-03-28 18:06] VITALS: BP 130/78
[2018-03-28] MEDS ORDERED: CEPHALEXIN500 M1 PO (18:06)
== END 2018-03-28 18:11 | disposition home or self-care (01) ==
LOC: ED 14:43
PROVIDERS: Nurse Practitioner Family
DX: R19.7 Diarrhea, unspecified (principal); N39.0 Urinary tract infection, site not specified; M79.661 Pain in right lower leg; M79.662 Pain in left lower leg; R25.2 Cramp and spasm; I10 Essential (primary) hypertension; E78.5 Hyperlipidemia, unspecified; J44.9 Chronic obstructive pulmonary disease, unspecified; K21.9 Gastro-esophageal reflux disease without esophagitis; I25.2 Old myocardial infarction; Z88.8 Allergy status to other drugs, medicaments and biological substances; Z88.2 Allergy status to sulfonamides; Z88.1 Allergy status to other antibiotic agents; Z88.6 Allergy status to analgesic agent; Z79.82 Long term (current) use of aspirin; Z79.899 Other long term (current) drug therapy; Z90.710 Acquired absence of both cervix and uterus; Z90.49 Acquired absence of other specified parts of digestive tract; Z87.891 Personal history of nicotine dependence

== ENCOUNTER 2018-03-29 20:02 | Inpatient (IN) | payer MEDICARE ==
[~2018-03-29] VITALS: Ht 147 cm; Wt 90.0 kg
[~2018-03-29 20:02] MED LIST changes: +CEPHALEXIN500 M1 PO
[2018-03-29 20:30] VITALS: BP 162/72
[2018-03-29 20:33] LABS: HEMATOCRIT 36.8 % (37.0-47.0); HEMOGLOBIN 12.6 g/dl (12.0-16.0); MEAN CELL VOLUME 88.2 fl (81.0-99.0); MEAN CORPUSCULAR HGB 30.2 pg (27.0-31.0); MEAN CORPUSCULAR HGB CONC 34.2 g/dl (33.0-37.0); MEAN PLATELET VOLUME 10.3 fl (9.6-12.3); PLATELET COUNT AUTOMATED 291 10*3/uL (130-400); RED BLOOD COUNT 4.17 10*6/uL (4.10-5.10); RED CELL DISTRI WIDTH 12.6 % (0-14.5); WHITE BLOOD COUNT 25.2 10*3/uL (4.8-10.8)
[2018-03-29 20:48] LABS: ALBUMIN 3.4 gm/dl (3.1-4.5); ALKALINE PHOSPHATASE 110 U/L (45-117); BUN 3 mg/dl (7-24); CHLORIDE 104 mmol/L (98-107); CREATININE 0.64 mg/dL (0.55-1.02); LIPASE 58 U/L (73-393); POTASSIUM 3.2 mmol/L (3.5-5.1); SGOT/AST 18 IU/L (3-35); SGPT/ALT 19 U/L (12-78); SODIUM 136 mmol/L (136-145); TOTAL PROTEIN 6.5 gm/dL (6.4-8.2)
[2018-03-29 20:54] LABS: PLATELET SUFFICIENCY NORMAL (NORMAL); TOTAL CELLS COUNTED 100 #CELLS
[2018-03-29 21:47] LABS: BILIRUBIN NEGATIVE (NEGATIVE); BLOOD NEGATIVE (NEGATIVE); CLARITY CLEAR (CLEAR); COLOR YELLOW (YELLOW); GLUCOSE TRACE (NEGATIVE); KETONE NEGATIVE (NEGATIVE); LEUKO ESTERASE TRACE (NEGATIVE); NITRITE NEGATIVE (NEGATIVE); UROBILINOGEN 0.2 E.U./dl (0.2-1.0)
[2018-03-29 22:00] LABS: BACTERIA 2+; EPITHELIAL CELLS 0-2; RBC 0-2 rbc/hpf (0-2)
[2018-03-30] VITALS (7 sets, daily range): BP systolic 115–190; BP diastolic 46–96
[2018-03-30] MEDS ORDERED: ANORO ELLIPTA1 EACH INH (00:26)
[2018-03-30 06:25] LABS: HEMATOCRIT 34.4 % (37.0-47.0); HEMOGLOBIN 11.5 g/dl (12.0-16.0); MEAN CELL VOLUME 87.5 fl (81.0-99.0); MEAN CORPUSCULAR HGB 29.3 pg (27.0-31.0); MEAN CORPUSCULAR HGB CONC 33.4 g/dl (33.0-37.0); MEAN PLATELET VOLUME 10.7 fl (9.6-12.3); PLATELET COUNT AUTOMATED 266 10*3/uL (130-400); RED BLOOD COUNT 3.93 10*6/uL (4.10-5.10); RED CELL DISTRI WIDTH 12.7 % (0-14.5); WHITE BLOOD COUNT 23.3 10*3/uL (4.8-10.8)
[2018-03-30 06:33] LABS: ALKALINE PHOSPHATASE 95 U/L (45-117); BUN 2 mg/dl (7-24); CHLORIDE 102 mmol/L (98-107); CREATININE 0.59 mg/dL (0.55-1.02); PHOSPHOROUS 2.4 mg/dL (2.5-4.9); POTASSIUM 3.3 mmol/L (3.5-5.1); SGOT/AST 16 IU/L (3-35); SGPT/ALT 20 U/L (12-78); SODIUM 134 mmol/L (136-145); TOTAL PROTEIN 5.9 gm/dL (6.4-8.2)
[2018-03-30 06:54] LABS: TOTAL CELLS COUNTED 100 #CELLS
[2018-03-30 06:55] LABS: PLATELET SUFFICIENCY NORMAL (NORMAL)
[2018-03-30 07:04] LABS: INTERNATIONAL NORM RATIO 1.1 (2.0-3.5)
[2018-03-31] VITALS: BP 164/91
[2018-03-31 06:36] LABS: HEMATOCRIT 35.8 % (37.0-47.0); HEMOGLOBIN 12.3 g/dl (12.0-16.0); MEAN CORPUSCULAR HGB 30.2 pg (27.0-31.0); MEAN CORPUSCULAR HGB CONC 34.4 g/dl (33.0-37.0); MEAN PLATELET VOLUME 10.7 fl (9.6-12.3); PLATELET COUNT AUTOMATED 284 10*3/uL (130-400); RED BLOOD COUNT 4.07 10*6/uL (4.10-5.10); RED CELL DISTRI WIDTH 12.9 % (0-14.5); WHITE BLOOD COUNT 25.5 10*3/uL (4.8-10.8)
[2018-03-31 06:57] LABS: TOTAL CELLS COUNTED 100 #CELLS
[2018-03-31 06:58] LABS: PLATELET SUFFICIENCY NORMAL (NORMAL)
[2018-03-31 07:23] LABS: CHLORIDE 101 mmol/L (98-107); POTASSIUM 3.3 mmol/L (3.5-5.1); SODIUM 133 mmol/L (136-145)
[2018-03-31 07:37] LABS: ALBUMIN 3.2 gm/dl (3.1-4.5); ALKALINE PHOSPHATASE 95 U/L (45-117); BUN 5 mg/dl (7-24); CREATININE 0.58 mg/dL (0.55-1.02); SGOT/AST 20 IU/L (3-35); SGPT/ALT 23 U/L (12-78); TOTAL PROTEIN 6.1 gm/dL (6.4-8.2)
[2018-03-31 08:00] VITALS: BP 164/92
[2018-03-31 12:00] VITALS: BP 148/86
[2018-03-31 15:59] VITALS: BP 200/104
[2018-03-31 20:00] VITALS: BP 184/83
[2018-04-01] VITALS: BP 162/91
[2018-04-01 06:52] LABS: BUN 5 mg/dl (7-24); CHLORIDE 93 mmol/L (98-107); CREATININE 0.49 mg/dL (0.55-1.02); POTASSIUM 3.1 mmol/L (3.5-5.1); SODIUM 130 mmol/L (136-145)
[2018-04-01 06:58] LABS: HEMATOCRIT 34.6 % (37.0-47.0); HEMOGLOBIN 11.7 g/dl (12.0-16.0); MEAN CELL VOLUME 87.2 fl (81.0-99.0); MEAN CORPUSCULAR HGB 29.5 pg (27.0-31.0); MEAN CORPUSCULAR HGB CONC 33.8 g/dl (33.0-37.0); PLATELET COUNT AUTOMATED 251 10*3/uL (130-400); RED BLOOD COUNT 3.97 10*6/uL (4.10-5.10); RED CELL DISTRI WIDTH 12.7 % (0-14.5); WHITE BLOOD COUNT 19.8 10*3/uL (4.8-10.8)
[2018-04-01 07:17] LABS: PLATELET SUFFICIENCY NORMAL (NORMAL); POLYCHROMASIA SLIGHT; TOTAL CELLS COUNTED 100 #CELLS
[2018-04-01 08:00] VITALS: BP 212/108
[2018-04-01 12:00] VITALS: BP 201/86
[2018-04-01 16:01] VITALS: BP 160/72
[2018-04-01 20:00] VITALS: BP 160/73
[2018-04-02] VITALS: BP 129/75
[2018-04-02 08:00] VITALS: BP 160/80
[2018-04-02 08:43] LABS: BUN 3 mg/dl (7-24); CHLORIDE 93 mmol/L (98-107); CREATININE 0.63 mg/dL (0.55-1.02); POTASSIUM 3.1 mmol/L (3.5-5.1); SODIUM 131 mmol/L (136-145)
[2018-04-02 12:00] VITALS: BP 118/54
[2018-04-02] MEDS ORDERED: ZOFRAN4 MG PO (13:34)
== END 2018-04-02 14:08 | disposition home or self-care (01) | DRG 690 ==
LOC: ED 20:02 → EDHOLD 23:09 → 5E 23:09
PROVIDERS: Family Medicine; Internal Medicine; Student in an Organized Health Care Education/Training Program
DX: N39.0 Urinary tract infection, site not specified (principal); C92.10 Chronic myeloid leukemia, BCR/ABL-positive, not having achieved remission; Z68.41 Body mass index [BMI] 40.0-44.9, adult; K52.9 Noninfective gastroenteritis and colitis, unspecified; I16.0 Hypertensive urgency; C50.919 Malignant neoplasm of unspecified site of unspecified female breast; E86.0 Dehydration; E87.6 Hypokalemia; I49.8 Other specified cardiac arrhythmias; K21.9 Gastro-esophageal reflux disease without esophagitis; F41.9 Anxiety disorder, unspecified; F32.9 Major depressive disorder, single episode, unspecified; J44.9 Chronic obstructive pulmonary disease, unspecified; R73.9 Hyperglycemia, unspecified; G89.29 Other chronic pain; R73.03 Prediabetes; E66.01 Morbid (severe) obesity due to excess calories; T50.995A Adverse effect of other drugs, medicaments and biological substances, initial encounter; Y92.89 Other specified places as the place of occurrence of the external cause; Z92.21 Personal history of antineoplastic chemotherapy; Z88.4 Allergy status to anesthetic agent; Z88.1 Allergy status to other antibiotic agents; Z88.2 Allergy status to sulfonamides; Z91.048 Other nonmedicinal substance allergy status; Z87.440 Personal history of urinary (tract) infections; Z87.01 Personal history of pneumonia (recurrent); Z90.49 Acquired absence of other specified parts of digestive tract; Z98.51 Tubal ligation status; Z90.710 Acquired absence of both cervix and uterus; Z87.891 Personal history of nicotine dependence; Z82.5 Family history of asthma and other chronic lower respiratory diseases; Z82.49 Family history of ischemic heart disease and other diseases of the circulatory system; Z83.3 Family history of diabetes mellitus; Z79.82 Long term (current) use of aspirin; Z79.899 Other long term (current) drug therapy

== ENCOUNTER → 2018-04-29 | Outpatient (CLI) | payer MEDICARE ==
[~2018-04-29] MED LIST changes: +ANORO ELLIPTA1 EACH INH; +LASIX20 MG PO; +XIIDRA OU; -XIIDRA1 EACH OP
--- NOTE | ~2018-04-29 | ST ---
[place], [place] EXERCISE STRESS TEST REPORT [id number] UNIT #: [id number] ROOM: DOCTOR: BRANDI HELLER MD BIRTHDATE: [birth year] DOS: 04/29/2018 PHARMACOLOGIC STRESS TEST INDICATIONS: Precordial chest pain. PROCEDURE: The patient was given a rapid infusion of regadenoson 0.4 mg intravenously, followed by a saline flush. She experienced some dyspnea. The resting electrocardiogram did show sinus rhythm with PACs and PVCs. She did not have any further changes with the infusion. She did have a normal heart rate response to the infusion. Her resting heart rate vasyl from 75 to 108 beats per minute. Blood pressure vasyl from 128/82 to 140/64. Forty seconds after the infusion of regadenoson, she was given radionuclide intravenously. IMPRESSION: 1. Well tolerated infusion of regadenoson. 2. Radionuclide administered. Please see the separate imaging report for further details of the patient's stress test results. BRANDI HELLER MD CM:STRESS:EXERCISE STRESS TEST REPORT 1029 1045 BRANDI HELLER MD
== END | disposition home or self-care (01) ==
LOC: CARD 04-27 13:00
DX: I47.1 Supraventricular tachycardia (principal); I25.9 Chronic ischemic heart disease, unspecified; R07.2 Precordial pain; R74.8 Abnormal levels of other serum enzymes; R53.81 Other malaise

== ENCOUNTER 2018-05-01 22:50 | Inpatient (IN) | payer MEDICARE ==
[~2018-05-01] VITALS: Ht 157.5 cm; Wt 91.3 kg
[2018-05-01] VITALS (13 sets, daily range): BP systolic 77–167; BP diastolic 44–102
--- NOTE | ~2018-05-01 | CON ---
[place], [place] REPORT OF CONSULTATION [id number] UNIT #: [id number] ROOM: [facility] DOCTOR: JACOB COMER MD BIRTHDATE: [birth year] DOS: 05/02/2018 PULMONARY CONSULTATION, EVALUATION AND MANAGEMENT REASON FOR CONSULTATION: Acute respiratory failure. The patient is currently on the mechanical ventilator. HISTORY OF PRESENT ILLNESS: This is a 67-year-old white female patient is known to me from the past. The patient has been treated in the office with bronchial asthma. She was also noted history of primary snoring and restless leg syndrome. She presented to the hospital emergently and assessed by the ER physician this morning. The patient stated that she has developed symptoms of sore throat. The history was obtained most after the patient was liberated from mechanical ventilation this morning and the other Chart reviewed, which was done prior to that. She started symptoms of having sore throat with a cough, which has been noted gradually worse in the past couple of days, later on she developed symptoms of shortness of breath that has occurred about the 24 hours, shortness of breath was worsened. She has been brought to the hospital and assessed by the ER physician. As per noted, the patient has been found to be cyanotic with respiratory arrest requiring intubation and mechanical ventilation. The patient is intubated and started on mechanical ventilation early this morning. The patient is currently noted on mechanical ventilator as noted in the Intensive Care Unit. The pulse oxygen saturation was also documented 60% on room air upon assessment in the Emergency Room. The patient was noted awake and alert this morning. She was following vocal commands. The chest x-ray and other laboratory data reviewed. After that, the patient has asked for liberation from mechanical ventilator. The patient was extubated successfully noted awake and alert without any distress. She denies symptoms of chest pain at present time. Shortness of breath was noted decreased. Denies symptoms of hemoptysis. The patient was complaining of a cough, which was noted [id number] and nonproductive. The patient presented to the Emergency Room, noted respiratory distress has been tried on CPAP, but the patient failed to improve, remained tachycardic and was intubated on mechanical ventilation, started about 2:45 a.m. REVIEW OF SYSTEMS: CONSTITUTIONAL SYMPTOMS: Somewhat fatigued reported. Denies symptoms of fever or chills at home. EYES: Denies any burning, redness, or tenderness. EARS, NOSE, THROAT SYMPTOMS: Denies sore throat, hoarseness, otalgia, postnasal drainage or epistaxis. CARDIOVASCULAR: Denies angina pain, palpitation, edema or pain in the lower extremities. GASTROINTESTINAL: Denies dysphagia, nausea, vomiting, diarrhea, abdominal pain, hematemesis, melena, or hematochezia. SKIN: Denies any abnormal lesions or rashes. CENTRAL NERVOUS SYSTEM: No dizziness, diplopia, syncopal episode, or headache. Denies focal deficit. SKIN: No lesions or rashes reported. [place], [place] REPORT OF CONSULTATION NAME: ELIDA WILKINS UNIT #: [id number] ROOM: [facility] DOCTOR: EDGAR COMER MDM BIRTHDATE: [birth year] Remaining systems were reviewed. They were noted all negative. PAST MEDICAL HISTORY: 1. Known to me uncomplicated moderate persistent bronchial asthma. 2. Chronic moderate obesity. 3. Esophageal reflux. 4. Anxiety and neurotic depression. 5. Hypercholesterolemia. 6. History of allergic rhinitis. 7. History of coronary artery disease. 8. CML, currently treated with medication regularly. 9. History of bilateral breast cancer requiring lumpectomy did not require any chemotherapy, radiation several years ago. PAST SURGICAL HISTORY: 1. . 2. Cholecystectomy. 3. Complete hysterectomy. 4. Appendectomy. 5. Both breast biopsy, which were benign. 6. Tubal ligation. 7. Bilateral breast lumpectomy for the breast cancer. The patient did not require any chemotherapy or radiation therapy. SOCIAL HISTORY: She is , has 3 children, lives at home. Denies history of alcohol use, or illicit drug use. Noted nonsmoker lifetime. FAMILY HISTORY: The patient's father history was unknown. Mother at the age of 84 due to complication related to COPD. MEDICATIONS: Which has been listed according to the patient were noted as use of Lexapro, Xiidra, Ditropan XL, Zofran, omeprazole, vitamin D, aspirin, Lipitor, loratadine, Neurontin, BuSpar, Tasigna, Anoro Ellipta, morphine in the form of MS Contin and lorazepam. The patient was also taking as metoprolol tartrate, lisinopril, Phenergan, and Imdur. DRUG ALLERGIES: REPORTED ALLERGY: 1. PENICILLIN CAUSING SKIN RASH. 2. FLUOROQUINOLONES, ALLERGIC DRUG REACTION IS UNKNOWN. 3. SULFA DRUGS. THE PATIENT WITH A RASH. MEDICATIONS: Currently administered noted use of lisinopril, Lipitor, Lasix, metoprolol tartrate, Imdur, gabapentin, aspirin, Lexapro, Solu-Medrol 40 mg b.i.d., Protonix, Lovenox 75 mg subcutaneous b.i.d., vancomycin, Zosyn, Zithromax. PHYSICAL EXAMINATION: GENERAL: This is a 67-year-old female who has been noted currently awake and alert this morning of assessment on the mechanical ventilator, assist control, volume control mechanical ventilation. She was following vocal commands. The [place], [place] REPORT OF CONSULTATION NAME: ELIDA WILKINS UNIT #: [id number] ROOM: [facility] DOCTOR: ALEXANDRA LUAN MD,JACOB BIRTHDATE: [birth year] patient has been extubated, noted to be awake and alert, requiring oxygen supplementation nasal cannula. VITAL SIGNS: Height recorded on current admission with height of 5 feet 2 inches, weight of 201 pounds with BMI 36.8. The vital signs, which have been recorded showed the temperature noted as normal since admission, respiratory rate was recorded as up to 40 and currently noted as 14-16 breaths per minute, heart rate of sinus tachycardia up to 136 beats per minute and this morning heart rate was recorded as 94 beats per minute. The pulse oxygen saturation was recorded on the 25% oxygen as 95% saturation, later nasal cannula 2 liters as 97% saturation. HEENT: Head was atraumatic. Eyes nonicterus. NECK: Supple. It was obese. The patient currently extubated. Initially was intubated, orogastric tube is in place, which has been removed both of them. CARDIOVASCULAR: S1, S2 is audible. LUNGS: Noted without any crackles. Occasional wheezing in the lungs. ABDOMEN: Soft and nontender. Bowel sounds present with moderate obesity. EXTREMITIES: Noted without any acute edema, clubbing, or cyanosis. MUSCULOSKELETAL: Without acute deformities. CENTRAL NERVOUS SYSTEM: Cranial nerves 2-12 intact. LABORATORY DATA: The outpatient myocardial stress test that was done by Dr. Cortes was reported at that time with a left ventricle ejection fraction 85%, normal pharmacologic stress test. There were no evidence of ischemic changes. The lactic acid on admission was 8.5 was 2.1. PT, PTT yesterday in the evening, normal BUN and creatinine in the Emergency Room. CBC yesterday, WBC count 17.7, hemoglobin and hematocrit normal, platelet count normal at 42% neutrophils. CMP of the yesterday on admission, BUN of 5, creatinine 1.86, glucose 221. Sodium 134 with a carbon dioxide of 20. Mild elevation of the anion gap was noted on admission. Arterial blood gas that was done on 30% oxygen, pH of 7.30, pCO2 of 42, pO2 of 83 with the BiPAP. Arterial blood gas that was done this morning at 4 o'clock, pH of 7.41, pCO2 of 34, Po2 78 on 35% oxygen. CMP this morning, normal BUN and creatinine was noted. AST of 37. The troponin first set in the Emergency Room was noted 0.73. The troponin this morning was elevated at 1.350. The chest x-rays that were reviewed this morning was noted without any acute pulmonary infiltration. CT of the chest that was completed this admission was noted, the patient is intubated, currently noted small patchy area of infiltration versus atelectasis in the left upper lobe. Procedure subsegment cannot be excluded. There were no pleural effusions. IMPRESSION: 1. The patient who has been currently admitted to the hospital was noted with current upper respiratory tract symptoms, later on developed respiratory distress. 2. Lactic acidosis. The patient with mild acute kidney injury. Tachycardia most likely due to the early sepsis. 3. Abnormal troponin. The patient most likely stress induced. The recent stress noted normal left ventricular ejection fraction without any evidence of ischemia. Left ventricle ejection fraction was noted normal. 4. The patient with chronic obesity. 5. Past history of breast cancer, which has been treated with the lumpectomy. [place], [place] REPORT OF CONSULTATION NAME: ELIDA WILKINS Braulio UNIT #: [id number] ROOM: [facility] DOCTOR: EDGAR COMER MDM BIRTHDATE: [birth year] 6. Chronic myelogenous leukemia, which has been reported in remission. It has been treated and well controlled with medications. 7. Pneumonia. The patient could be considered aspiration in the consideration. 8. Bronchial asthma with acute exacerbation as well. 9. Rule out viral syndrome as well. PLAN OF THERAPY: The patient has been already extubated, liberation from mechanical ventilator, doing well on oxygen supplementation nasal cannula keep the patient in Intensive Care Unit. Bronchodilator to be continued. Continue current dose of Solu-Medrol as well. Bronchodilator will be continued. Cardiology evaluation has been reordered to assess the patient abnormal troponin. She has been getting unfractionated therapeutic heparin. Recommendation from the Cardiology Services antibiotic spectrum will be changed to community-acquired infection with discontinuation of all of the broad spectrum intravenous antibiotics. Started the patient on Rocephin 1 gram IV b.i.d. and Zithromax should suffice the current community-acquired pneumonia including for aspirations. Other supportive therapy, plan of management, care plan, and additional treatment changes will be made based on progression of the illness. If the patient would be ordered discontinuation of the therapeutic Lovenox, certainly she could be started on Lovenox 40 mg subcutaneous daily. DVT prophylaxis for the current hospitalization. Other supportive therapy, plan of management, care plan with treatment and therapies. Total time in pulmonary critical care evaluation and management is 42 minutes. JACOB MORRIS MD CM:CONSTR:REPORT OF CONSULTATION 1301 05/03/18 0053 interface
--- NOTE | ~2018-05-01 | PROC NOTE ---
[place], [place] PROCEDURE NOTE [id number] UNIT #: [id number] ROOM: [facility] DOCTOR: MAXIMO TREJO BIRTHDATE: [birth year] DOS: 05/02/2018 MODIFIED BARIUM SWALLOW LOCATION: [facility]. ROOM: [place] [address]. ORDERING PHYSICIAN: Dr. Nydia Verma. RADIOLOGIST: Dr. Torres. BACKGROUND INFORMATION: The patient is a 67-year-old female who was seen for modified barium swallow. This test was ordered to rule out aspiration. This patient is status post extubation. She was admitted with sepsis, pneumonia and respiratory failure. Further medical history includes chronic myeloid leukemia, COPD, depression, anxiety, MS, hypertension, GERD. Since extubation, she has been ordered a clear liquid diet. For today's assessment, she was alert and able to follow commands. She reported that she was slightly short of breath and stated that she gets short of breath easily with any exertion. She was not receiving oxygen. Oral peripheral examination revealed edentulous status. Lingual, labial, and buccal skills were within normal limits in terms of strength, range of motion, and coordination. Volitional swallow was adequate. Volitional cough was congested. METHODS AND MATERIALS USED FOR THE EXAM: The patient was positioned in the lateral plane and the exam was viewed under fluoroscopy. The patient was presented with a variety of consistencies to assess swallowing skills including applesauce mixed with barium presented in half teaspoon amounts, barium-coated cookie given in bite size piece and thin liquid barium taken by cup and straw. ORAL PHASE: The patient achieved adequate labial seal around cup, spoon and straw with no anterior loss. Bolus formation was adequate with all consistencies. Oral transit was also adequate. Mastication of barium-coated cookie was impaired due to edentulous status. The patient was able to chew a small bit of it, then had to spit out the rest. Tongue to palate contact was within normal limits. Tongue retraction was within normal limits. Rodriguez functioning was adequate with no nasal regurgitation. PHARYNGEAL PHASE: Unremarkable. ESOPHAGEAL PHASE: This phase of the swallow was not formally assessed during this exam. IMPRESSIONS AND RECOMMENDATIONS: Based upon assessment results, this 67-year-old patient presents with functional swallowing skills. She did have difficulty masticating barium-coated cookie due to edentulous status. There was no penetration, aspiration or residue with any consistency. Recommend a mechanical soft diet and thin liquid. Recommend safe swallow strategies such as small bites and sips, alternating liquid and solid and upright positioning for [place], [place] PROCEDURE NOTE NAME: ELIDA WILKINS UNIT #: [id number] ROOM: [facility] DOCTOR: MAXIMO TREJO BIRTHDATE: [birth year] meals. Short term followup therapy is recommended to ensure safety with intake using education and adherence to safe swallow precautions. Results and recommendations were shared with the patient and nursing staff and they verbalized understanding. Thank you very much for this referral. Should you have any questions regarding this patient, please contact the speech pathologist at [phone]. MAXIMO TREJO CM:PROCNOTE:PROCEDURE NOTE [phone] NYDIA VERMA DO MAXIMO TREJO
--- NOTE | ~2018-05-01 | PR ---
[place], [place] PROGRESS NOTE NAME: ELIDA WILKINS UNIT #: [id number] ROOM: 405 DOCTOR: JACOB COMER MD BIRTHDATE: [birth year] DOS: 05/04/2018 SUBJECTIVE: The patient was still complaining of coughing with some sputum expectoration. Denies symptoms of fever or chills. Denies symptoms of hemoptysis. Shortness of breath has been improving. There was no chest pain reported. OBJECTIVE: VITAL SIGNS: Normal temperature, respiratory rate 18, heart rate 86, blood pressure 125/60. The pulse oxygen saturation recorded as 96% at rest on room air. HEENT: Examination shows head was atraumatic. Eyes nonicterus. NECK: Supple. CARDIOVASCULAR: S1, S2 is audible. LUNGS: The patient was noted without any wheezing or crackles at the present time. Breaths sounds are noted waez-zw-lsmvdzwnei diminished bilaterally. ABDOMEN: Soft and obese. EXTREMITIES: No acute edema. LABORATORY DATA: CBC today, WBC count 20.8, hemoglobin 11.6, platelet count normal. The culture of the sputum from the 14 of this month showed no bacterial growth. The BMP this morning, normal BUN and creatinine. Chest x-ray, 2-view, which was done this morning was reviewed, does not show any acute pulmonary infiltration. IMPRESSION: 1. The patient who has been currently noted with acute bronchitis that has been noted with acute exacerbation of chronic obstructive pulmonary disease with gradual improvement. 2. Abnormal troponins. Chest x-ray does not show any acute pulmonary infiltration today. 3. Acute exacerbation of bronchial asthma. PLAN OF MANAGEMENT: Leukocytosis may be the effect of the corticosteroid is very likely. The coughing has been subsiding. Antibiotics, no changes need to be made. Decrease Solu-Medrol to 40 mg daily. Possible discharge home in the morning from the Pulmonary standpoint depend upon further clinical improvement would be determined. [place], [place] PROGRESS NOTE NAME: ELIDA WILKINS UNIT #: [id number] ROOM: 405 DOCTOR: JACOB COMER MD BIRTHDATE: [birth year] JACOB MORRIS MD CM:PNTRANS [id number] JACOB LUNA MD 05/04/18 2352 interface
--- NOTE | ~2018-05-01 | PR ---
[place], [place] PROGRESS NOTE [id number] UNIT #: [id number] ROOM: 405 DOCTOR: ALEXANDRA LUNA MD,JACOB BIRTHDATE: [birth year] DOS: 05/07/2018 SUBJECTIVE: The patient has been noted quite comfortable at this time with significant reduction and improvement in the cough noted. The patient had a bronchoscopy that was completed yesterday. The patient has not been noted any ongoing acute new respiratory complaints otherwise. Shortness of breath and wheezing has been resolving. There were no symptoms of chest pain. OBJECTIVE: VITAL SIGNS: Normal temperature, respiratory rate of 16, heart rate of 80, blood pressure 141/78. The pulse oxygen saturation on room air was 97% saturation. HEENT: Examination shows head was atraumatic. Eyes nonicterus. NECK: Supple. CARDIOVASCULAR: S1, S2 is audible. LUNGS: The patient noted clear of any wheezing or crackles. ABDOMEN: Soft, nontender. Bowel sounds present. EXTREMITIES: No acute edema. LABORATORY DATA: Gram stain of the bronchial washing, many white blood cells, moderate epithelial cells, few Gram-positive cocci in clusters. IMPRESSION: 1. The patient who has been currently noted with acute tracheobronchitis, status post bronchoscopy with improvement in the cough noted and significant wheezing were resolving. 2. Acute exacerbation of obstructive lung disease. PLAN OF TREATMENT: Discharge the patient home on oral antibiotics, bronchodilators. Other therapy, plan of management at this time would be done for the patient accordingly. Usual care. JACOB MORRIS MD CM:PNTRANS [id number] JACOB LUNA MD 05/07/18 1206 interface
--- NOTE | ~2018-05-01 | PROC NOTE ---
[place], [place] PROCEDURE NOTE NAME: [facility] [id number] UNIT #: [id number] ROOM: 405 DOCTOR: ALEXANDRA LUNA MD,JACOB BIRTHDATE: [birth year] DOS: 05/06/2018 PROCEDURE: Bronchoscopy. PREOPERATIVE DIAGNOSES: Severe not resolving cough. The patient with intermittent wheezing. POSTOPERATIVE DIAGNOSES: Removal of moderate amount of mucopurulent secretion impaction, endobronchial tree, greater on the left than the right side. FINDINGS: Acute tracheobronchitis. No obstructive lesions. COMPLICATIONS: None. PROCEDURE DESCRIPTION: Informed consent obtained for the patient. The patient was brought to the OR and placed in supine position. Conscious sedation administered by Anesthesia Department. After achieving proper sedation, airway introduced into the mouth. Bronchoscope was advanced to the airway into laryngeal area. Epiglottis and vocal cords were seen. The vocal was noted symmetrically moving, during the procedure. The bronchoscope was advanced vocal cord and tracheal lumen. Tracheal lumen was noted with moderate amount of thick mucus secretion with purulent secretion mixture, suctioned out to jordyn level, moderate amount. The patient noted some secretion causing impaction of the bronchial opening, greater on the left, upper lingula, and lower lobe than the right upper, middle, and the right lower lobe. Secretions suctioned out, clear with normal saline wash, sent for culture. Procedure well tolerated by the patient without any difficulty. Bronchial washing sent for all the necessary cultures. No family members were available to discuss the current findings. JACOB MORRIS MD CM:PROCNOTE:PROCEDURE NOTE [id number] JACOB LUNA MD
--- NOTE | ~2018-05-01 | PR ---
[place], [place] PROGRESS NOTE [id number] UNIT #: [id number] ROOM: 405 DOCTOR: JACOB COMER MD BIRTHDATE: [birth year] DOS: 05/06/2018 SUBJECTIVE: The patient was noted comfortable at this time, but still noted the coughing remains nonproductive, N.p.o., past mental status, shortness of breath occurs with exertion with intermittent wheezing as well. There were no symptoms of chest pain. Denies symptoms of nausea, vomiting, diarrhea, abdominal pain, hematemesis, melena, or hematochezia. Denies symptoms of fever or chills. The remaining systems were reviewed, they were noted all negative. PHYSICAL EXAMINATION: VITAL SIGNS: For the patient which were recorded as a normal temperature, respiratory rate 18, heart rate 82, blood pressure 119/67. Pulse oxygen saturation on room air 95% saturation. HEENT: Chronic obesity. Head was atraumatic. Eyes nonicterus. NECK: Supple. CARDIOVASCULAR: S1, S2 is audible. LUNGS: The patient was noted without any wheezing or crackles at the present time. ABDOMEN: Soft, nontender. Bowel sounds present. EXTREMITIES: The patient was noted without any acute edema, clubbing, or cyanosis. VISIBLE SKIN: No lesions or rashes. MUSCULOSKELETAL: Noted without any acute deformities. CENTRAL NERVOUS. Cranial nerves 2-12 intact. LABORATORY DATA: There were no labs done today. IMPRESSION: 1. The patient with history of chronic myelogenous leukemia, currently treated for acute exacerbation of bronchial asthma, persistent severe not resolving cough, here for bronchoscopy. 2. The patient with chronic obesity as well. PLAN OF MANAGEMENT: Proceed with the fibrobronchoscopy as planned today. No additional treatment changes at this time will be necessary. Any modification of treatment, if necessary will be ordered after bronchoscopy. Continue in the meantime, bronchodilators, corticosteroids as well for the exacerbation of bronchial asthma management. [place], [place] PROGRESS NOTE NAME: ELIDA WILKINS UNIT #: [id number] ROOM: 405 DOCTOR: JACOB COMER MD BIRTHDATE: [birth year] JACOB MORRIS MD CM:PNTRANS [id number] JACOB LUNA MD 05/06/18 1253 interface
--- NOTE | ~2018-05-01 | PR ---
[place], [place] PROGRESS NOTE NAME: ELIDA WILKINS UNIT #: [id number] ROOM: 405 DOCTOR: JACOB COMER MD BIRTHDATE: [birth year] DOS: 05/03/2018 PULMONARY PROGRESS NOTE SUBJECTIVE: The patient has been noted comfortable, remains extubated at this time. She has been using oxygen supplementation nasal cannula this morning, coughing was noted moderate without sputum expectoration or hemoptysis. The patient did not report symptoms of chest pain. Wheezing has been noted intermittently as well. She was continued steroids. Denies symptoms of abdominal pain, nausea, vomiting, hematemesis, melena, hematuria. Denies any edema, pain of the lower extremities. Remaining review of systems was reviewed was noted all negative. OBJECTIVE: VITAL SIGNS: The patient has normal temperature, respiratory rate of 15, heart rate 95, blood pressure 118/76. Pulse oxygen saturation recorded as 95% saturation on 1 liter nasal cannula at rest. HEENT: Head was atraumatic. Eyes nonicterus. NECK: Supple. CARDIOVASCULAR: S1, S2 is audible. LUNGS: The patient was noted without any crackles. Decreased breath, expiratory wheezing. ABDOMEN: Soft and obese. EXTREMITIES: The patient noted chronic obesity. MUSCULOSKELETAL: Without any acute deformities. CENTRAL NERVOUS SYSTEM: The patient's cranial nerves 2-12 intact. IMPRESSION: 1. The patient with acute tracheobronchitis with acute exacerbation of chronic obstructive pulmonary disease, abnormal troponin, most likely demand ischemia. Resolution of the tachycardia as well with early acute sepsis. 2. Acute pneumonia. 3. Acute exacerbation of bronchial asthma. PLAN OF MANAGEMENT: Continue the patient on bronchodilators, oxygen supplementation, corticosteroids. Continuation of the current antibiotic. No changes need to be done. Follow up chest x-ray in the morning to assess the progression with changes in pulmonary filtration other abnormalities. Usual care. The patient will be continued DVT prophylaxis could be transferred to a telemetry floor whenever desired. Other therapy, plan of management, care plan of treatment with additional treatment changes will be ordered based on progression of the illness. [place], [place] PROGRESS NOTE NAME: ELIDA WILKINS UNIT #: [id number] ROOM: 405 DOCTOR: JACOB COMER MD BIRTHDATE: [birth year] JACOB MORRIS MD CM:PNKRISTAL [id number] JACOB LUNA MD 05/03/18 2341 interface
--- NOTE | ~2018-05-01 | EKG ---
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
--- NOTE | ~2018-05-01 | EKG ---
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
--- NOTE | ~2018-05-01 | PR ---
[place], [place] PROGRESS NOTE NAME: ELIDA WILKINS [facility] #: [id number] UNIT #: [id number] ROOM: 405 DOCTOR: ALEXANDRA LUNA MD,JACOB BIRTHDATE: [birth year] DOS: 05/05/2018 SUBJECTIVE: She has been still complaining of cough, which has been reported severe and nonproductive. Symptoms of shortness of breath was also reported with wheezing intermittently. Denies symptoms of chest pain. Denies symptoms of nausea or vomiting. Denies symptoms of hemoptysis. The patient denies symptoms of fever, chills, headache, or diplopia. Denies symptoms of nausea, vomiting, diarrhea, abdominal pain, hematemesis, or melena. Remaining systems were reviewed. They were noted all negative. OBJECTIVE: VITAL SIGNS: For the patient shows a normal temperature, respiratory rate 18, heart rate of 80-79. The pulse oxygen saturation recorded as 97% at rest on room air. HEENT: Moderate obese. Head was atraumatic. Eyes nonicterus. NECK: Supple. CARDIOVASCULAR: S1, S2 is audible. LUNGS: The patient was noted with scattered wheezing, no crackles. ABDOMEN: Soft, nontender, bowel sounds present. EXTREMITIES: No acute edema. MUSCULOSKELETAL: Without acute deformities. NEUROLOGY: Cranial nerves 2-12 intact. LABORATORY DATA: Culture of the sputum previously was noted as negative. Chest x-ray was obtained yesterday for assessment of current ongoing coughing, not resolving. The patient was noted without any acute pulmonary infiltration. CBC of this morning, WBC count 20.9, hemoglobin 11.8, platelet count normal. Urine for strep antigens were negative. IMPRESSION: 1. Persistent leukocytosis. 2. Nonproductive cough, most likely mucoid impaction. 3. History of CML. 4. History of past breast cancer as well. 5. The patient with demand-induced ischemia with acute respiratory failure, status post liberation from mechanical ventilation. PLAN OF MANAGEMENT: Continuation of the current therapy at this time. Continue bronchodilators, corticosteroids for the exacerbation of COPD. Other therapy, plan of management. The patient has been assessed for therapeutic bronchoscopy that will be done tomorrow morning. Risk and benefits of procedure were discussed with the patient. She was agreeable for the procedure. Any additional treatment changes if necessary will be made with the progression of the illness. [place], [place] PROGRESS NOTE NAME: ELIDA WILKINS UNIT #: [id number] ROOM: 405 DOCTOR: JACOB COMER MD BIRTHDATE: [birth year] JACOB MORRIS MD CM:PNTRANS [id number] JACOB LUNA MD 05/17/18 0807 interface
[~2018-05-01 22:50] MED LIST changes: -LASIX20 MG PO
--- NOTE | 2018-05-01 23:03 | NUR ---
7.5 ETT 23 CM AT THE LIP
[2018-05-01 23:17] LABS: BILIRUBIN NEGATIVE (NEGATIVE); BLOOD TRACE-INTACT (NEGATIVE); CLARITY SL CLOUDY (CLEAR); COLOR YELLOW (YELLOW); GLUCOSE NEGATIVE (NEGATIVE); KETONE NEGATIVE (NEGATIVE); LEUKO ESTERASE NEGATIVE (NEGATIVE); NITRITE NEGATIVE (NEGATIVE); PH 5.5 (5.0-9.0)
[2018-05-01 23:24] LABS: BACTERIA 1+
[2018-05-01 23:29] LABS: HEMATOCRIT 42.3 % (37.0-47.0); HEMOGLOBIN 13.6 g/dl (12.0-16.0); MEAN CELL VOLUME 92.8 fl (81.0-99.0); MEAN CORPUSCULAR HGB 29.8 pg (27.0-31.0); MEAN CORPUSCULAR HGB CONC 32.2 g/dl (33.0-37.0); MEAN PLATELET VOLUME 10.4 fl (9.6-12.3); PLATELET COUNT AUTOMATED 307 10*3/uL (130-400); RED BLOOD COUNT 4.56 10*6/uL (4.10-5.10); RED CELL DISTRI WIDTH 12.9 % (0-14.5); WHITE BLOOD COUNT 17.7 10*3/uL (4.8-10.8)
[2018-05-01 23:39] LABS: ACT PARTIAL THROMBO TIME 24.3 SECONDS (20.8-31.5)
[2018-05-01 23:47] LABS: ALBUMIN 3.1 gm/dl (3.1-4.5); ALKALINE PHOSPHATASE 111 U/L (45-117); BUN 5 mg/dl (7-24); CHLORIDE 99 mmol/L (98-107); CREATININE 1.06 mg/dL (0.55-1.02); SGOT/AST 33 IU/L (3-35); SGPT/ALT 35 U/L (12-78); SODIUM 134 mmol/L (136-145); TOTAL PROTEIN 6.5 gm/dL (6.4-8.2)
[2018-05-01 23:52] LABS: BASOPHILS 1 % (0-1); TOTAL CELLS COUNTED 100 #CELLS
[2018-05-01 23:53] LABS: BURR CELLS MODERATE; PLATELET SUFFICIENCY NORMAL (NORMAL)
[2018-05-01 23:58] LABS: TROPONIN I 0.073 ng/ml (<0.045)
--- NOTE | 2018-05-01 23:59 | NUR ---
CRITICAL LAB TROP 0.073. DR SAN NOTIFIED AND NURSE KYLE
[2018-05-02] VITALS (32 sets, daily range): BP systolic 86–131; BP diastolic 44–79
[2018-05-02 00:08] LABS: ABG BASE EXCESS -4.8 mmol/L (-2.0-2.0); ABG HCO3 20.7 mmol/l (22-26); ABG O2 SATURATION 96.5 % (95-97); ARTERIAL BLOOD GAS PCO2 42.9 mmHg (35-45); ARTERIAL BLOOD GAS PH 7.306 (7.35-7.45); ARTERIAL BLOOD GAS PO2 83.6 mmHg (80-90)
--- NOTE | 2018-05-02 00:36 | NUR ---
IV KETAMINE BEING TITRATED PER PROTOCOL,CURRENTLY RUNNING AT 13.5 ML/HR.PT SEDATED AT THIS TIME,ON VENT. BP 90/51. IV FLUIDS INFUSING WIDE.--KYLE KELLEY RN
--- NOTE | 2018-05-02 01:42 | NUR ---
DR [place] LACTIC ACID 2.1
--- NOTE | 2018-05-02 02:25 | NUR ---
PATIENT TO CT AT THIS TIME WITH CIDER PRESS OPERATOR, RESPIRATORY THERAPIST AND THIS RN.
--- NOTE | 2018-05-02 02:50 | NUR ---
PATIENT BACK FROM CT. WHILE OFF THE VENT, PATIENT BREATHING 23 BREATHS PER MINUTE ON HER OWN WITH 15L O2.
--- NOTE | 2018-05-02 03:35 | NUR ---
A 67, admitted to ICCU, under the services of HIRO Sampson DO with a diagnosis of RESPIRATORY DISTRESS. Chief complaint is SUDDEN ONSET SOB. Patient arrived via stretcher from ER. Monitor applied. Initial assessment completed. Vital signs taken and recorded. HIRO SAMPSON DO notified of admission to the unit. Orders received. See assessment for past medical history, medications and allergies. Patient and/or family oriented to unit. [facility] visitation policy reviewed. Clothing/patient valuable form completed. VENKAT CASTILLO
[2018-05-02 04:39] LABS: BASO # 0.1 10*3/uL (0.0-0.1); BASO % 0.6 % (0.0-1.0); EOS % 0.1 % (1.0-4.0); HEMATOCRIT 37.6 % (37.0-47.0); HEMOGLOBIN 12.4 g/dl (12.0-16.0); LYMPH # 0.7 10*3/uL (1.3-4.4); LYMPH % 5.9 % (27.0-41.0); MEAN CELL VOLUME 90.8 fl (81.0-99.0); MEAN PLATELET VOLUME 10.7 fl (9.6-12.3); MONO # 0.5 10*3/uL (0.1-1.0); NEUT # 9.9 10*3/uL (2.3-7.9); NEUT % 87.9 % (47.0-73.0); PLATELET COUNT AUTOMATED 260 10*3/uL (130-400); RED BLOOD COUNT 4.14 10*6/uL (4.10-5.10); WHITE BLOOD COUNT 11.3 10*3/uL (4.8-10.8)
[2018-05-02 04:49] LABS: ABG HCO3 21.1 mmol/l (22-26); ABG O2 SATURATION 96.3 % (95-97); ARTERIAL BLOOD GAS PCO2 34.5 mmHg (35-45); ARTERIAL BLOOD GAS PH 7.41 (7.35-7.45); ARTERIAL BLOOD GAS PO2 78.2 mmHg (80-90)
[2018-05-02 04:58] LABS: ALBUMIN 3.1 gm/dl (3.1-4.5); ALKALINE PHOSPHATASE 101 U/L (45-117); BUN 7 mg/dl (7-24); CHLORIDE 103 mmol/L (98-107); CREATININE 0.84 mg/dL (0.55-1.02); PHOSPHOROUS 2.9 mg/dL (2.5-4.9); POTASSIUM 3.8 mmol/L (3.5-5.1); SGOT/AST 37 IU/L (3-35); SGPT/ALT 35 U/L (12-78); SODIUM 138 mmol/L (136-145); TOTAL PROTEIN 5.8 gm/dL (6.4-8.2)
--- NOTE | 2018-05-02 05:05 | NUR ---
DR. MORRIS NOTIFIED OF CONSULT.NO NEW ORDERS RECEIVED.
--- NOTE | 2018-05-02 05:11 | NUR ---
DR. STRICKLAND NOTIFIED OF ELEVATED TROPONIN AND REMINDED OF RECENT NORMAL STRESS TEST 04/29/18. WILL CONT TO MONITOR.
--- NOTE | 2018-05-02 05:48 | NUR ---
DR. [facility]S [facility] NOTIFIED OF CONSULT.
--- NOTE | 2018-05-02 06:16 | NUR ---
PT RESTING IN BED WITH HOB ELEVATED. SIDE RAILS UP X'S 2. ET SECURE TO VENT. PULSE OX 96% ON 21% FIO2 VIA VENT. NPO. RIJ MLC INTACT. HEP LOCK INTACT EJ. HEP LOCK INTACT KAYODE. WRIST RESTRAINTS INTACT BILATERALLY. CIRCULATION ADEQUATE. VARGAS PATENT AND DRAINING CLEAR YELLOW URINE. DIPRIVAN GTT CONT. NO DISTRESS NOTED. CONDITION GUARDED.
--- NOTE | 2018-05-02 08:50 | NUR ---
DR. MORRIS HERE TO SEE PATIENT. EXTUBATED PER ORDER AND PLACED ON 2L NASAL CANNULA. WHEEZES HEARD IN LUNG TORREZ. NO EDEMA NOTED.
--- NOTE | 2018-05-02 14:00 | NUR ---
TAKEN DOWN TO X-RAY FOR MODIFIED BARIUM SWALLOW.
--- NOTE | 2018-05-02 15:33 | NUR ---
SPEECH PATHOLOGY Modified barium swallow completed as per orders. This was ordered to r/o aspiration. Medical hx includes s/p extubation, COPD, respiratory failure, chronic myeloid leukemia. Patient is currently ordered clear liquid diet. She was assessed with puree, thin liquid and solid food. No oral or pharyngeal difficulty was displayed with puree or thin liquid by cup or straw. When given solid cookie, she was unable to chew it fully. She consumed a small piece then spit out the rest. No penetration or aspiration was observed with any consistency. Recommend mechanical soft diet and thin liquid. Recommend small bites and sips, alternating liquid and solid and upright positioning. Short term follow up therapy is recommended to ensure safety. Results and julio. were shared with patient. Patient's nurse will also be informed. Dictated report to follow. Thank you for this referral. MAXIMO TREJO MSCCC-COMMUNITY DIRECTOR
--- NOTE | 2018-05-02 19:39 | NUR ---
CHART CHECK COMPLETE.
[2018-05-03] VITALS: BP 150/81
[2018-05-03 04:00] VITALS: BP 122/66
[2018-05-03 04:45] LABS: HEMATOCRIT 34.4 % (37.0-47.0); HEMOGLOBIN 11.1 g/dl (12.0-16.0); MEAN CELL VOLUME 90.3 fl (81.0-99.0); MEAN CORPUSCULAR HGB 29.1 pg (27.0-31.0); MEAN CORPUSCULAR HGB CONC 32.3 g/dl (33.0-37.0); MEAN PLATELET VOLUME 10.7 fl (9.6-12.3); PLATELET COUNT AUTOMATED 238 10*3/uL (130-400); RED BLOOD COUNT 3.81 10*6/uL (4.10-5.10); RED CELL DISTRI WIDTH 12.8 % (0-14.5); WHITE BLOOD COUNT 18.2 10*3/uL (4.8-10.8)
[2018-05-03 05:14] LABS: ALBUMIN 2.7 gm/dl (3.1-4.5); BUN 10 mg/dl (7-24); CHLORIDE 103 mmol/L (98-107); POTASSIUM 3.3 mmol/L (3.5-5.1); SODIUM 138 mmol/L (136-145)
[2018-05-03 05:17] LABS: ALKALINE PHOSPHATASE 82 U/L (45-117); PHOSPHOROUS 2.6 mg/dL (2.5-4.9); SGOT/AST 28 IU/L (3-35); SGPT/ALT 29 U/L (12-78); TOTAL PROTEIN 5.6 gm/dL (6.4-8.2)
[2018-05-03 05:22] LABS: PLATELET SUFFICIENCY NORMAL (NORMAL); TOTAL CELLS COUNTED 100 #CELLS
--- NOTE | 2018-05-03 07:33 | NUR ---
Shift chart check completed.24 HR chart check completed.
[2018-05-03 08:00] VITALS: BP 118/76; BP 130/70
--- NOTE | 2018-05-03 09:59 | NUR ---
POTASSIUM SUPPLEMENTED PER ORDER.
--- NOTE | 2018-05-03 10:43 | NUR ---
Shank Stapler in to talk to patient. Patient states lives at HOME with EXHUSBAND AND GREAT NE[employer]HEW. There are FEW steps in the home. Physician: Braulio MOSCOSO Pharmacy: [facility] Home health services: NONE Patient's level of ADLs: INDEPENDENT Patient has working utilities: YES DME: NONE Follow-up physician's appointment after d/c: WILL BE MADE BY HOSPITALIST NURSE DIRECTOR ON DISCHARGE Does patient want to access PORTAL?: NO Discharge plan PT STATES SHE LIVES AT HOME WITH ER EX AND GREAT NEPHEW. STATES SHE IS NORMALLY INDEPENDENT WHEN AT HOME. TALKED WITH HER ABOUT HOME HEALTH BUT SHE STATES SHE DOES NOT KNOW UNTIL SHE IS READY TO GO HOME IF SHE WILL NEED IT BUT SHE WILL THINK ABOUT IT. WILL CONTINUE TO FOLLOW.. ANGÉLICA NARVAEZ
[2018-05-03 12:00] VITALS: BP 138/66
--- NOTE | 2018-05-03 12:47 | NUR ---
REPORT TO LINDA MEJIA ON 4E.
--- NOTE | 2018-05-03 13:07 | NUR ---
SPEECH PATHOLOGY Patient was seen for treatment this pm. Treatment was conducted during lunchtime meal. Upon clinician arrival patient was feeding herself. Patient reported that she had choked on the turkey before clinician arrived. She also c/o not being able to order various foods that she likes due to being on a soft diet. Overall she displayed no overt difficulty with any item taken. There was no residue, cough or wet vocal quality. Education was provided regarding safe swallow precautions such as chewing thoroughly, small bites/sips and alternating liquid and solid. Patient verbalized understanding. Will continue plan to ensure safety with highest level diet. MAXIMO TREJO MSCCC-WIND OPERATIONS MANAGER
--- NOTE | 2018-05-03 13:21 | NUR ---
TRANSFERRED IN STABLE CONDITION TO [facility] WITH ALL OF HER BELONGINGS/MEDS. SHE PHONED HER TO TELL HIM WHERE SHE IS NOW LOCATED.
[2018-05-03 16:00] VITALS: BP 121/55
[2018-05-03 20:00] VITALS: BP 129/64
[2018-05-04] VITALS: BP 128/67
--- NOTE | 2018-05-04 | NUR ---
CALLED DR. FLOWER AT THIS TIME STATED THAT PATIENT WOULD LIKE SOMETHING TO SLEEP.
--- NOTE | 2018-05-04 00:23 | NUR ---
WENT TO ADMINISTER MEDICATON TO HELP PATIENT SLEEP, PATIENT SLEEPING WITH SNORING RESPIRATIONS. CALL LIGHT WITHIN REACH, WILL MONITOR
--- NOTE | 2018-05-04 01:18 | NUR ---
24 HR chart check completed.
[2018-05-04 06:21] LABS: HEMATOCRIT 36.2 % (37.0-47.0); HEMOGLOBIN 11.6 g/dl (12.0-16.0); MEAN CELL VOLUME 90.7 fl (81.0-99.0); MEAN CORPUSCULAR HGB 29.1 pg (27.0-31.0); MEAN PLATELET VOLUME 11.3 fl (9.6-12.3); PLATELET COUNT AUTOMATED 274 10*3/uL (130-400); RED BLOOD COUNT 3.99 10*6/uL (4.10-5.10); RED CELL DISTRI WIDTH 12.8 % (0-14.5); WHITE BLOOD COUNT 20.8 10*3/uL (4.8-10.8)
[2018-05-04 06:32] LABS: BUN 9 mg/dl (7-24); CHLORIDE 103 mmol/L (98-107); CREATININE 0.71 mg/dL (0.55-1.02); PHOSPHOROUS 3.6 mg/dL (2.5-4.9); POTASSIUM 3.9 mmol/L (3.5-5.1); SODIUM 139 mmol/L (136-145)
[2018-05-04 07:11] LABS: PLATELET SUFFICIENCY NORMAL (NORMAL); TOTAL CELLS COUNTED 100 #CELLS
[2018-05-04 08:00] VITALS: BP 125/60
--- NOTE | 2018-05-04 10:26 | NUR ---
SPEECH PATHOLOGY Patient was seen for treatment this am. She was alert, sitting upright in bedside chair. Patient reported that she continues to feel better. Patient reported that she has been eating with no difficulty, chewing well and using strategies to help foods go down better. She named various foods she has been eating and reported what safety strategies she used to effectively chew and swallow harder, tubing drier foods. She reported that she was hopeful that her diet could soon be upgraded back to regular, so that she was not limited in what foods she could order. As she has improved medically, tolerates present diet, and demonstrates awareness and implementation of safety strategies, it is recommended that diet upgrade to regular. Patient's nurse was informed and verbalized understanding and agreement. Continue for one more visit to ensure safe tolerance of diet upgrade and adherence to strategies. MAXIMO TREJO MSCCC-DATA CENTER TECHNICIAN
[2018-05-04 12:00] VITALS: BP 132/67
--- NOTE | 2018-05-04 13:16 | NUR ---
PT STILL UNDECIDED IF SHE NEEDS ANYTHING ON DISCHARGE. WILL CONTINUE TO FOLLOW.
--- NOTE | 2018-05-04 13:27 | NUR ---
Occupational Therapy offered this date. Patient reports that she feels good and she is independent in ADLs and functional mobility in her room and is ambulating in the hallway with her . Patient declines any OT needs at this time. Discharge OT referral at this time. Thank you. Niharika Erwin OTR/gunner
--- NOTE | 2018-05-04 14:19 | NUR ---
PHYSICAL THERAPY PAtient reports she has no PT needs. Requests d/c PT. Thank you for this referral. Bhavna Coronel,PT
[2018-05-04 16:00] VITALS: BP 114/57
[2018-05-04 20:00] VITALS: BP 122/63
--- NOTE | 2018-05-04 20:40 | NUR ---
PATIENT AWAKE/ALERT FOR SHIFT ASSESSMENT. RESPIRATOINS EASY/REG ON RA AT THIS TIME. OOB IN CHAIR WITH FAMILY AT BEDSIDE. PLEASANT/COOPERATIVE WITH CARE. NO VOICED COMPLAINTS AT THIS TIME. BED IN LOW POSITION, WHEELS LOCKED, CALL LIGHT IN REACH.
--- NOTE | 2018-05-05 00:03 | NUR ---
PATIENT SLEEPING. NO S/S OF DISTRESS NOTED. RESPIRATIONS EASY/REG ON RA. CALL LIGHT IN REACH
--- NOTE | 2018-05-05 04:18 | NUR ---
PATIENT SLEEPING. NO S/S OF DISTRESS NOTED. RESPIRATIONS EASY/REG ON RA. CALL LIGHT IN REACH
[2018-05-05 07:15] LABS: HEMOGLOBIN 11.8 g/dl (12.0-16.0); MEAN CELL VOLUME 90.9 fl (81.0-99.0); MEAN CORPUSCULAR HGB 29.8 pg (27.0-31.0); MEAN CORPUSCULAR HGB CONC 32.8 g/dl (33.0-37.0); PLATELET COUNT AUTOMATED 281 10*3/uL (130-400); RED BLOOD COUNT 3.96 10*6/uL (4.10-5.10); RED CELL DISTRI WIDTH 12.8 % (0-14.5); WHITE BLOOD COUNT 20.9 10*3/uL (4.8-10.8)
[2018-05-05 08:00] VITALS: BP 142/78
[2018-05-05 08:00] LABS: ATYPICAL LYMPHS 1 % (0-0); BURR CELLS FEW; PLATELET SUFFICIENCY NORMAL (NORMAL); TOTAL CELLS COUNTED 100 #CELLS
--- NOTE | 2018-05-05 08:00 | NUR ---
PATIENT SITTING UP IN CHAIR GETTING WASHED UP. RESPIRATIONS EASY, REGULAR ON RA. LUNGS CLEAR/DIMINISHED T/O. WILL CONTINUE TO MONITOR. CALL LIGHT WITHIN REACH. VSS.
--- NOTE | 2018-05-05 08:57 | NUR ---
PATIENT IS SITTING UP IN CHAIR, WATCHING TV. VERY PLEASANT. NO COMPLANTS AT THIS TIME. CALL LIGHT IN REACH. WALDEMAR DUNCAN.RCC
--- NOTE | 2018-05-05 10:19 | NUR ---
SITTING UP IN CHAIR, WATCHING TV. NO COMPLAINTS AT THIS TIME. CALL LIGHT IN REACH. WALDEMAR DUNCAN.RCC
--- NOTE | 2018-05-05 11:18 | NUR ---
PT DENIES HOME NEEDS, STATES SHE IS DOING WELL NOW AND WILL GO HOME ON DISCHARGE WITH NO NEEDS.
[2018-05-05 11:57] VITALS: BP 111/69
--- NOTE | 2018-05-05 12:18 | NUR ---
PRE-OP QUESTIONNAIRE AND EVALUATION AND PRE-OP CHECK LIST REVIEWED AND SIGNED. PT UP IN CHAIR-HAS MALE VISITOR-CALL LIGHT WITHIN REACH. NO COMPLAINTS AT THIS TIME. Fortunato BRANDT SPDEANGELOCC
--- NOTE | 2018-05-05 13:28 | NUR ---
SPEECH PATHOLOGY Patient was seen for treatment this pm. Patient was alert, sitting in bedside chair visiting with spouse. Patient's diet was upgraded to regular yesterday. Patient reported that she was pleased with the change as she is now able to order all the food items she likes. She reported eating fruit and salad yesterday, stating that she chewed carefully and ate slowly to ensure safe swallowing. She reported having no problems with any item she has eaten and stated that she is eating more overall. She is tolerating diet upgrade and implementing strategies for safety. She has achieved goals and discharge from speech pathology services is recommended at this time. Thank you for this referral. It has been a pleasure taking part in this patient's care. MAXIMO TREJO MSCCC-ASSOCIATE PRODUCT MANAGER
[2018-05-05 16:00] VITALS: BP 114/64
[2018-05-05 20:00] VITALS: BP 106/64
--- NOTE | 2018-05-05 21:36 | NUR ---
AWAKE/ALERT FOR SHIFT ASSESSMENT. PATIENT OOB IN CHAIR AT THIS TIME. RESPIRATIONS EASY/REG ON RA. FAMILY MEMBER AT BEDSIDE. CALL LIGHT IN REACH.
[2018-05-06] VITALS (10 sets, daily range): BP systolic 117–140; BP diastolic 48–76
--- NOTE | 2018-05-06 08:05 | NUR ---
PT OFF FLOOR FOR BRONCH
--- NOTE | 2018-05-06 11:03 | NUR ---
PT HAVING A BRONCH TODAY. WILL CONTINUE TO FOLLOW.
--- NOTE | 2018-05-06 13:41 | NUR ---
DR STRICKLAND ASKED RN TO CONTACT DR MORRIS TO SEE IF PATIENT COULD BE DISCHARGED.
--- NOTE | 2018-05-06 13:41 | NUR ---
PER DR MORRIS NOT OK TO DISCHARGE PATIENT UNTIL CULTURES RETURN. DR STRICKLAND NOTIFIED.
--- NOTE | 2018-05-06 20:41 | NUR ---
AWAKE/ALERT FOR SHIFT ASSESSMENT. SITTING OOB IN CHAIR AT THIS TIME. RESPIRATIONS EASY/REG ON RA. NO VOICED COMPLAINTS AT THIS TIME. CALL LIGHT IN REACH. WILL MONITOR.
[2018-05-07] VITALS: BP 141/78
--- NOTE | 2018-05-07 02:56 | NUR ---
SLEEPING. NO S/S OF DISTRESS NOTED. RESPIRATIONS EASY/REG ON RA. CALL LIGHT IN REACH
--- NOTE | 2018-05-07 05:10 | NUR ---
sleeping, easily arousable for am medications. abx infusing as ordered. no voiced complaints at this time. call light in reach.
[2018-05-07 08:00] VITALS: BP 131/90
[2018-05-07 09:16] LABS: HEMOGLOBIN 11.9 g/dl (12.0-16.0); MEAN CELL VOLUME 91.6 fl (81.0-99.0); MEAN CORPUSCULAR HGB 29.5 pg (27.0-31.0); MEAN CORPUSCULAR HGB CONC 32.2 g/dl (33.0-37.0); MEAN PLATELET VOLUME 11.3 fl (9.6-12.3); PLATELET COUNT AUTOMATED 308 10*3/uL (130-400); RED BLOOD COUNT 4.04 10*6/uL (4.10-5.10); RED CELL DISTRI WIDTH 12.9 % (0-14.5); WHITE BLOOD COUNT 21.6 10*3/uL (4.8-10.8)
[2018-05-07 09:30] LABS: CREATININE 0.67 mg/dL (0.55-1.02)
[2018-05-07 10:20] LABS: TOTAL CELLS COUNTED 100 #CELLS
[2018-05-07 10:21] LABS: PLATELET SUFFICIENCY NORMAL (NORMAL)
[2018-05-07 10:22] LABS: TOXIC GRANULATION SLIGHT; VACUOLATION OF NEUTROPHILS SLIGHT
[2018-05-07] MEDS ORDERED: LASIX20 MG PO (10:43)
[2018-05-07] MEDS ORDERED: DOXYCYCLINE100 M3 PO (10:43)
[2018-05-07 12:00] VITALS: BP 128/63
--- NOTE | 2018-05-07 12:00 | NUR ---
PATIENT'S IJ LINE HAS BEEN REMOVED BY THIS NURSE WITH THE ASSISTANCE OF NURSE DARWIN COTA. PATIENT TOLERATED PROCEDURE WELL, NO S/S OF DISTRESS. LINE REMOVED IN SMOOTH, AMEZCUA MOTION. TIP INTACT UPON REMOVAL, PRESSURE APPLIED FOR 5 MINUTES TO PATIENT'S IJ SITE. PATIENT'S SITE CLOTTED OFF, PRESSURE DRESSING APPLIED. PATIENT INSTRUCTED TO HOLD PRESSURE FOR ANOTHER COUPLE MINUTES AND NOTIFY NURSE OF ANY BLEEDING FROM SITE. PATIENT DISPLAYS NO S/S OF DISTRESS. CALL LIGHT WITHIN REACH.
--- NOTE | 2018-05-07 12:48 | NUR ---
Discharge instructions reviewed with patient/family. Patient receptive and verbalizes understanding. Follow-up care arranged. Written instructions given to patient/family. PATIENT AMBULATED FROM FLOOR WITH FAMILY. NO S/S OF DISTRESS. LESLEE NICHOLS
[2018-05-07 14:11] LABS: ACID FAST SPEC PROCESSING Concentration (.)
[2018-06-16 12:07] LABS: ACID FAST CULTURE Negative (.)
== END 2018-05-07 12:49 | disposition home or self-care (01) | DRG 871 ==
LOC: ED 22:50 → ICCU 05-02 03:11 → 4E 05-02 03:11 → EDHOLD 05-02 03:11 → ICCU 05-02 03:18 → 4E 05-03 13:15
PROVIDERS: Internal Medicine; Internal Medicine Critical Care Medicine; Student in an Organized Health Care Education/Training Program; ADMIT Internal Medicine
PROC: 5A1935Z Respiratory Ventilation, Less than 24 Consecutive Hours (ICD-10-PCS; principal; 2018-05-02)
PROC: BD1BYZZ Fluoroscopy of Mouth/Oropharynx using Other Contrast (ICD-10-PCS; 2018-05-02)
PROC: 0BH17EZ Insertion of Endotracheal Airway into Trachea, Via Natural or Artificial Opening (ICD-10-PCS; 2018-05-02)
PROC: BD11YZZ Fluoroscopy of Esophagus using Other Contrast (ICD-10-PCS; 2018-05-02)
PROC: B548ZZA Ultrasonography of Superior Vena Cava, Guidance (ICD-10-PCS; 2018-05-02)
PROC: 02HV33Z Insertion of Infusion Device into Superior Vena Cava, Percutaneous Approach (ICD-10-PCS; 2018-05-02)
PROC: 0BC58ZZ Extirpation of Matter from Right Middle Lobe Bronchus, Via Natural or Artificial Opening Endoscopic (ICD-10-PCS; 2018-05-06)
PROC: 0BCB8ZZ Extirpation of Matter from Left Lower Lobe Bronchus, Via Natural or Artificial Opening Endoscopic (ICD-10-PCS; 2018-05-06)
PROC: 0BC48ZZ Extirpation of Matter from Right Upper Lobe Bronchus, Via Natural or Artificial Opening Endoscopic (ICD-10-PCS; 2018-05-06)
PROC: 0BC68ZZ Extirpation of Matter from Right Lower Lobe Bronchus, Via Natural or Artificial Opening Endoscopic (ICD-10-PCS; 2018-05-06)
PROC: 0BC98ZZ Extirpation of Matter from Lingula Bronchus, Via Natural or Artificial Opening Endoscopic (ICD-10-PCS; 2018-05-06)
PROC: 0BC38ZZ Extirpation of Matter from Right Main Bronchus, Via Natural or Artificial Opening Endoscopic (ICD-10-PCS; 2018-05-06)
PROC: 0BC18ZZ Extirpation of Matter from Trachea, Via Natural or Artificial Opening Endoscopic (ICD-10-PCS; 2018-05-06)
PROC: 0BC88ZZ Extirpation of Matter from Left Upper Lobe Bronchus, Via Natural or Artificial Opening Endoscopic (ICD-10-PCS; 2018-05-06)
PROC: 0BC78ZZ Extirpation of Matter from Left Main Bronchus, Via Natural or Artificial Opening Endoscopic (ICD-10-PCS; 2018-05-06)
DX: A41.9 Sepsis, unspecified organism (principal); J69.0 Pneumonitis due to inhalation of food and vomit; J96.90 Respiratory failure, unspecified, unspecified whether with hypoxia or hypercapnia; E43 Unspecified severe protein-calorie malnutrition; T17.490A Other foreign object in trachea causing asphyxiation, initial encounter; T17.590A Other foreign object in bronchus causing asphyxiation, initial encounter; C92.10 Chronic myeloid leukemia, BCR/ABL-positive, not having achieved remission; F41.9 Anxiety disorder, unspecified; Z85.3 Personal history of malignant neoplasm of breast; J44.9 Chronic obstructive pulmonary disease, unspecified; F32.9 Major depressive disorder, single episode, unspecified; K21.9 Gastro-esophageal reflux disease without esophagitis; E87.6 Hypokalemia; I49.8 Other specified cardiac arrhythmias; R65.20 Severe sepsis without septic shock; X58.XXXA Exposure to other specified factors, initial encounter; E66.01 Morbid (severe) obesity due to excess calories; Z98.891 History of uterine scar from previous surgery; Z90.710 Acquired absence of both cervix and uterus; Z98.51 Tubal ligation status; Z87.891 Personal history of nicotine dependence; Z83.6 Family history of other diseases of the respiratory system; Z82.49 Family history of ischemic heart disease and other diseases of the circulatory system; Z79.82 Long term (current) use of aspirin; Z88.2 Allergy status to sulfonamides; Z88.9 Allergy status to unspecified drugs, medicaments and biological substances; Y93.89 Activity, other specified; Y92.89 Other specified places as the place of occurrence of the external cause; Y99.8 Other external cause status; Z68.36 Body mass index [BMI] 36.0-36.9, adult

== ENCOUNTER → 2018-05-10 | Outpatient (CLI) | payer MEDICARE ==
[~2018-05-10] MED LIST changes: +LASIX20 MG PO
[2018-05-10 14:18] LABS: BUN 9 mg/dl (7-24); CHLORIDE 99 mmol/L (98-107); CREATININE 0.84 mg/dL (0.55-1.02); POTASSIUM 3.8 mmol/L (3.5-5.1); SODIUM 140 mmol/L (136-145)
== END | disposition home or self-care (01) ==
LOC: LAB 13:14
PROVIDERS: Internal Medicine
DX: E87.6 Hypokalemia (principal)

== ENCOUNTER → 2018-06-15 | Outpatient (CLI) | payer MEDICARE ==
[~2018-06-15] MED LIST changes: +Ipratropium Brom3 ML INH; +PRILOSEC20 M1 PO; +QUESTRAN LIGHT4 GM PO; +ZESTRIL20 MG PO
[2018-06-15 15:16] LABS: HEMATOCRIT 40.7 % (37.0-47.0); HEMOGLOBIN 12.8 g/dl (12.0-16.0); MEAN CELL VOLUME 90.8 fl (81.0-99.0); MEAN CORPUSCULAR HGB 28.6 pg (27.0-31.0); MEAN CORPUSCULAR HGB CONC 31.4 g/dl (33.0-37.0); MEAN PLATELET VOLUME 11.2 fl (9.6-12.3); RED BLOOD COUNT 4.48 10*6/uL (4.10-5.10); RED CELL DISTRI WIDTH 12.6 % (0-14.5)
[2018-06-15 15:40] LABS: ALBUMIN 3.5 gm/dl (3.1-4.5); ALKALINE PHOSPHATASE 95 U/L (45-117); BUN 6 mg/dl (7-24); CHLORIDE 102 mmol/L (98-107); CHOLESTEROL 129 mg/dL (<200); CREATININE 0.76 mg/dL (0.55-1.02); HDL CHOLESTEROL 56 mg/dl (40-60); LDL CHOLESTEROL 46 mg/dL (9-159); POTASSIUM 4.3 mmol/L (3.5-5.1); SGOT/AST 21 IU/L (3-35); SGPT/ALT 29 U/L (12-78); SODIUM 138 mmol/L (136-145); TOTAL PROTEIN 6.5 gm/dL (6.4-8.2); TRIGLYCERIDES 134 mg/dl (<150); VLDL CHOLESTEROL 27 mg/dL (6-40)
== END | disposition home or self-care (01) ==
LOC: LAB 14:40
PROVIDERS: Internal Medicine
DX: E78.00 Pure hypercholesterolemia, unspecified (principal); I10 Essential (primary) hypertension; E55.9 Vitamin D deficiency, unspecified

== ENCOUNTER 2019-01-19 19:25 | Inpatient (IN) | payer MEDICARE ==
[~2019-01-19] VITALS: Ht 147.3 cm; Wt 81.3 kg
[~2019-01-19 19:25] MED LIST changes: -XIIDRA OU; +XIIDRA1 EACH OU
[2019-01-19 20:12] LABS: BASO # 0.1 10*3/uL (0.0-0.1); BASO % 1.2 % (0.0-1.0); EOS # 0.4 10*3/uL (0.0-0.4); EOS % 4.1 % (1.0-4.0); HEMOGLOBIN 11.5 g/dl (12.0-16.0); LYMPH # 1.5 10*3/uL (1.3-4.4); LYMPH % 17.8 % (27.0-41.0); MEAN CELL VOLUME 85.6 fl (81.0-99.0); MEAN CORPUSCULAR HGB CONC 33.8 g/dl (33.0-37.0); MEAN PLATELET VOLUME 9.9 fl (9.6-12.3); MONO # 1.4 10*3/uL (0.1-1.0); MONO % 16.3 % (3.0-9.0); NEUT # 5.2 10*3/uL (2.3-7.9); NEUT % 60.1 % (47.0-73.0); PLATELET COUNT AUTOMATED 318 10*3/uL (130-400); RED BLOOD COUNT 3.97 10*6/uL (4.10-5.10); RED CELL DISTRI WIDTH 13.3 % (0-14.5); WHITE BLOOD COUNT 8.6 10*3/uL (4.8-10.8)
[2019-01-19 20:30] LABS: ALBUMIN 2.8 gm/dl (3.1-4.5); ALKALINE PHOSPHATASE 95 U/L (45-117); BUN 6 mg/dl (7-24); CHLORIDE 106 mmol/L (98-107); CREATININE 0.67 mg/dL (0.55-1.02); LIPASE 41 U/L (73-393); POTASSIUM 3.3 mmol/L (3.5-5.1); SGOT/AST 19 IU/L (3-35); SGPT/ALT 21 U/L (12-78); SODIUM 137 mmol/L (136-145); TOTAL PROTEIN 5.6 gm/dL (6.4-8.2)
[2019-01-19 21:34] LABS: BILIRUBIN NEGATIVE (NEGATIVE); BLOOD NEGATIVE (NEGATIVE); CLARITY CLEAR (CLEAR); COLOR YELLOW (YELLOW); GLUCOSE NEGATIVE (NEGATIVE); KETONE NEGATIVE (NEGATIVE); LEUKO ESTERASE NEGATIVE (NEGATIVE); NITRITE NEGATIVE (NEGATIVE); PH 5.5 (5.0-9.0); SPECIFIC GRAVITY <= 1.005 (1.005-1.030); UROBILINOGEN 0.2 E.U./dl (0.2-1.0)
[2019-01-19 22:30] VITALS: BP 136/54
[2019-01-19 23:40] VITALS: BP 176/71
--- NOTE | 2019-01-19 23:52 | NUR ---
SPOKE WITH DR. VALENTINE AT THIS TIME. [facility] CALLED AND STATED THAT THEY WANTED TO KNOW WHAT THE PATIENT IS BEING TREATED FOR WITH THE ZOSYN BECAUSE IT IS USUALLY FOR PNEUMONIA AND TO DOUBLE CHECK WITH THE DOCTOR WHAT IT IS BEING USED FOR. HE ALSO RECOMMENDED THAT THE DOSE BE 3.375MG Q6H IF IT NEEDS TO BE USED. DR. VALENTINE STATED SHE WANTED TO KEEP THE ZOSYN ON AND THAT IF THEY NEED TO CHANGE IT TO 3.375MG THAT IS OK. THIS WAS RELAYED BACK TO [facility]
[2019-01-20] MEDS ORDERED: MIRALAX119 GM PO (00:20)
[2019-01-20 07:03] LABS: ALBUMIN 2.3 gm/dl (3.1-4.5); ALKALINE PHOSPHATASE 78 U/L (45-117); BUN 6 mg/dl (7-24); CHLORIDE 113 mmol/L (98-107); CREATININE 0.61 mg/dL (0.55-1.02); SGOT/AST 15 IU/L (3-35); SGPT/ALT 19 U/L (12-78); SODIUM 140 mmol/L (136-145)
[2019-01-20 08:00] VITALS: BP 164/78
[2019-01-20 08:09] LABS: BASO # 0.1 10*3/uL (0.0-0.1); BASO % 1.1 % (0.0-1.0); EOS # 0.3 10*3/uL (0.0-0.4); EOS % 3.6 % (1.0-4.0); HEMATOCRIT 31.6 % (37.0-47.0); HEMOGLOBIN 10.5 g/dl (12.0-16.0); LYMPH # 1.6 10*3/uL (1.3-4.4); LYMPH % 20.2 % (27.0-41.0); MEAN CELL VOLUME 86.6 fl (81.0-99.0); MEAN CORPUSCULAR HGB 28.8 pg (27.0-31.0); MEAN CORPUSCULAR HGB CONC 33.2 g/dl (33.0-37.0); MEAN PLATELET VOLUME 9.9 fl (9.6-12.3); MONO # 1.3 10*3/uL (0.1-1.0); NEUT # 4.8 10*3/uL (2.3-7.9); NEUT % 58.6 % (47.0-73.0); PLATELET COUNT AUTOMATED 285 10*3/uL (130-400); RED BLOOD COUNT 3.65 10*6/uL (4.10-5.10); RED CELL DISTRI WIDTH 13.4 % (0-14.5); WHITE BLOOD COUNT 8.1 10*3/uL (4.8-10.8)
--- NOTE | 2019-01-20 09:00 | NUR ---
Director Trade in to talk to patient. Patient states lives at home with her ex and son. There are 19-20 steps in the home. Physician: Dr. Mine Zavala [facility]: has had [facility] in the past nut not currently Patient's level of ADLs: INDEPENDENT Patient has working utilities: yes DME: nebulizer, cane, walker Follow-up physician's appointment after d/c: will be made by the hospitalist nurse director upon discharge Does patient want to access PORTAL?: no Discharge plan discussed with patient. She lives at home with her ex and son. She is independent in ADLs and ambulation with a walker or a cane. Discussed home health care services and she denies any home needs at this time. When medically stable she will be discharged to home. Her ex will provide transportation on discharge. SEBLE ZHU
[2019-01-20 12:00] VITALS: BP 150/65
--- NOTE | 2019-01-20 12:40 | NUR ---
PHYSICAL THERAPY Physical therapy evaluation attempted, patient refused. Patient reported she does not feel she needs PT services at this time and is independent throughout the room. Patient has no needs for PT services at this time, discharge PT orders. Thank you, Rachelle Barry,SPT Lexus Chao,PT,DPT
--- NOTE | 2019-01-20 12:55 | NUR ---
Occupational Therapy referral received and screen completed. Patient reported to physical therapy that she is independent in all ADls and mobility an doew not feel she needs any therapy at this time. Discharge OT referral per patients request. Thank you. Jamir Erwin OTR/gunner
--- NOTE | 2019-01-20 13:43 | NUR ---
Spoke with Dr. Soto regarding consult for cholitis. Labs, scans and history were reviewd. No new orders physician to follow up at bedside.
[2019-01-20 16:00] VITALS: BP 111/50
--- NOTE | 2019-01-20 17:39 | NUR ---
Assisted at patients bedside. Physician reviewed past history and results of EGD [place] that was done 6months ago. Physician assessed patient. Per physician if patient continues to improve she can be discharged in morning. See new orders. Dr. Johnston notified of 's recommendations.
[2019-01-20 20:00] VITALS: BP 122/58
[2019-01-21] VITALS: BP 131/57
[2019-01-21 05:53] LABS: BUN 8 mg/dl (7-24); CHLORIDE 111 mmol/L (98-107); CREATININE 0.59 mg/dL (0.55-1.02); POTASSIUM 3.6 mmol/L (3.5-5.1); SODIUM 141 mmol/L (136-145)
[2019-01-21 06:13] LABS: BASO # 0.1 10*3/uL (0.0-0.1); BASO % 1.2 % (0.0-1.0); EOS # 0.5 10*3/uL (0.0-0.4); EOS % 4.9 % (1.0-4.0); HEMOGLOBIN 10.2 g/dl (12.0-16.0); LYMPH # 2.4 10*3/uL (1.3-4.4); LYMPH % 24.6 % (27.0-41.0); MEAN CELL VOLUME 88.9 fl (81.0-99.0); MEAN CORPUSCULAR HGB 28.3 pg (27.0-31.0); MEAN CORPUSCULAR HGB CONC 31.9 g/dl (33.0-37.0); MEAN PLATELET VOLUME 10.4 fl (9.6-12.3); MONO # 1.1 10*3/uL (0.1-1.0); MONO % 10.8 % (3.0-9.0); NEUT # 5.6 10*3/uL (2.3-7.9); PLATELET COUNT AUTOMATED 315 10*3/uL (130-400); RED CELL DISTRI WIDTH 13.5 % (0-14.5); WHITE BLOOD COUNT 9.7 10*3/uL (4.8-10.8)
[2019-01-21 08:00] VITALS: BP 146/64
[2019-01-21] MEDS ORDERED: AUGMENTIN 875875 MG PO (11:15)
--- NOTE | 2019-01-21 12:20 | NUR ---
heplock removed. discharge INSTRUCTIONS REVIEWED. BUT WHEELED OUT VIA WHEELCHAIR TO PRIVATE CAR.
== END 2019-01-21 12:20 | disposition home or self-care (01) | DRG 391 ==
LOC: ED 19:25 → EDHOLD 22:25 → 4E 22:25
PROVIDERS: Family Medicine; Nurse Practitioner Family; Student in an Organized Health Care Education/Training Program; ADMIT Internal Medicine
DX: K52.9 Noninfective gastroenteritis and colitis, unspecified (principal); E43 Unspecified severe protein-calorie malnutrition; C92.10 Chronic myeloid leukemia, BCR/ABL-positive, not having achieved remission; I50.32 Chronic diastolic (congestive) heart failure; J44.1 Chronic obstructive pulmonary disease with (acute) exacerbation; D64.9 Anemia, unspecified; E78.5 Hyperlipidemia, unspecified; E87.6 Hypokalemia; F41.9 Anxiety disorder, unspecified; G89.29 Other chronic pain; F32.9 Major depressive disorder, single episode, unspecified; I11.0 Hypertensive heart disease with heart failure; I27.20 Pulmonary hypertension, unspecified; K57.90 Diverticulosis of intestine, part unspecified, without perforation or abscess without bleeding; K21.9 Gastro-esophageal reflux disease without esophagitis; G62.9 Polyneuropathy, unspecified; E66.01 Morbid (severe) obesity due to excess calories; R79.82 Elevated C-reactive protein (CRP); I25.10 Atherosclerotic heart disease of native coronary artery without angina pectoris; I49.8 Other specified cardiac arrhythmias; Z88.2 Allergy status to sulfonamides; Z79.899 Other long term (current) drug therapy; I25.2 Old myocardial infarction; Z88.8 Allergy status to other drugs, medicaments and biological substances; Z79.82 Long term (current) use of aspirin; Z90.89 Acquired absence of other organs; Z90.710 Acquired absence of both cervix and uterus; Z90.49 Acquired absence of other specified parts of digestive tract; Z98.51 Tubal ligation status; Z87.891 Personal history of nicotine dependence; Z83.3 Family history of diabetes mellitus; Z82.49 Family history of ischemic heart disease and other diseases of the circulatory system; Z83.6 Family history of other diseases of the respiratory system; Z85.3 Personal history of malignant neoplasm of breast; Z86.73 Personal history of transient ischemic attack (TIA), and cerebral infarction without residual deficits; Z68.37 Body mass index [BMI] 37.0-37.9, adult

== ENCOUNTER 2019-01-23 19:18 | Inpatient (IN) | payer MEDICARE ==
[~2019-01-23] VITALS: Ht 147.3 cm; Wt 79.4 kg
[~2019-01-23 19:18] MED LIST changes: +AUGMENTIN 875875 MG PO; +MIRALAX119 GM PO
[2019-01-23 19:19] VITALS: BP 168/97
[2019-01-23 19:54] LABS: BASO # 0.1 10*3/uL (0.0-0.1); EOS # 0.6 10*3/uL (0.0-0.4); EOS % 3.9 % (1.0-4.0); HEMATOCRIT 30.8 % (37.0-47.0); HEMOGLOBIN 10.1 g/dl (12.0-16.0); LYMPH # 3.2 10*3/uL (1.3-4.4); LYMPH % 22.8 % (27.0-41.0); MEAN CORPUSCULAR HGB 28.5 pg (27.0-31.0); MEAN CORPUSCULAR HGB CONC 32.8 g/dl (33.0-37.0); MEAN PLATELET VOLUME 9.3 fl (9.6-12.3); MONO # 1.1 10*3/uL (0.1-1.0); NEUT % 63.2 % (47.0-73.0); PLATELET COUNT AUTOMATED 344 10*3/uL (130-400); RED BLOOD COUNT 3.54 10*6/uL (4.10-5.10); RED CELL DISTRI WIDTH 13.6 % (0-14.5); WHITE BLOOD COUNT 14.2 10*3/uL (4.8-10.8)
[2019-01-23 20:05] LABS: ACT PARTIAL THROMBO TIME 23.9 SECONDS (20.0-32.1); INTERNATIONAL NORM RATIO 0.9 (2.0-3.5)
[2019-01-23 20:14] LABS: ALBUMIN 2.9 gm/dl (3.1-4.5); ALKALINE PHOSPHATASE 96 U/L (45-117); BUN 4 mg/dl (7-24); CHLORIDE 109 mmol/L (98-107); CREATININE 0.76 mg/dL (0.55-1.02); POTASSIUM 3.3 mmol/L (3.5-5.1); SGOT/AST 22 IU/L (3-35); SGPT/ALT 27 U/L (12-78); SODIUM 140 mmol/L (136-145); TOTAL PROTEIN 5.7 gm/dL (6.4-8.2)
[2019-01-23 20:18] LABS: TROPONIN I < 0.015 ng/ml (<0.045)
--- NOTE | 2019-01-23 20:19 | NUR ---
LAB CALLED WITH CRITICAL LACTIC OF 2.1
--- NOTE | 2019-01-23 21:32 | NUR ---
IV MEDICATION GIVEN BY SEBLE Marquis RN
--- NOTE | 2019-01-23 21:33 | NUR ---
PATIENT REFUSED GOWN PERFERS OWN CLOTHES, PT DENIES ANY WOUNDS.
[2019-01-23 21:34] VITALS: BP 141/76
[2019-01-23 22:09] VITALS: BP 157/72
[2019-01-23 22:31] LABS: VENOUS BLOOD GAS O2 SAT 97.1 % (40-85); VENOUS PH 7.451 (7.32-7.43)
[2019-01-23 22:45] VITALS: BP 162/78
--- NOTE | 2019-01-23 22:45 | NUR ---
Time: 2244 A 68 year old FEMALE admitted to 5E under services of HIRO SAMPSON DO. Pt. arrived via ambulatory from ER. Chief complaint: COPD EXACERBATION. MARY TOWNSEND
--- NOTE | 2019-01-24 00:08 | NUR ---
PATIENT COMPLAINS OF INSOMNIA. MEDICATED PER ORDER. WILL CONTINUE TO MONITOR FOR RELIEF. RESTING IN BED. VOICES NO OTHER CONCERNS AT THIS TIME. CALL LIGHT WITHIN REACH
--- NOTE | 2019-01-24 01:08 | NUR ---
MEDICATION EFFECTIVE. PATIENT RESTING IN BED AT THIS TIME .CALL LIGHT WITHIN REACH.
--- NOTE | 2019-01-24 02:27 | NUR ---
24 HR chart check completed.
--- NOTE | 2019-01-24 04:35 | NUR ---
Patient sleeping. Respirations relaxed and easy. Siderails up . [place] on. [place]ISS[place],MARY
--- NOTE | 2019-01-24 06:25 | NUR ---
NOTIFIED DR. MORRIS OF NEW CONSULT. NO NEW ORDERS AT THIS TIME
[2019-01-24 06:32] LABS: HEMOGLOBIN 10.3 g/dl (12.0-16.0); MEAN CELL VOLUME 89.4 fl (81.0-99.0); MEAN CORPUSCULAR HGB 28.8 pg (27.0-31.0); MEAN CORPUSCULAR HGB CONC 32.2 g/dl (33.0-37.0); MEAN PLATELET VOLUME 9.8 fl (9.6-12.3); PLATELET COUNT AUTOMATED 335 10*3/uL (130-400); RED BLOOD COUNT 3.58 10*6/uL (4.10-5.10); RED CELL DISTRI WIDTH 13.3 % (0-14.5); WHITE BLOOD COUNT 15.2 10*3/uL (4.8-10.8)
[2019-01-24 06:56] LABS: ALBUMIN 2.9 gm/dl (3.1-4.5); ALKALINE PHOSPHATASE 94 U/L (45-117); BUN 4 mg/dl (7-24); CHLORIDE 111 mmol/L (98-107); CHOLESTEROL 131 mg/dL (<200); CREATININE 0.78 mg/dL (0.55-1.02); HDL CHOLESTEROL 57 mg/dl (40-60); LDL CHOLESTEROL 57 mg/dL (9-159); PHOSPHOROUS 2.5 mg/dL (2.5-4.9); SGOT/AST 22 IU/L (3-35); SGPT/ALT 23 U/L (12-78); SODIUM 142 mmol/L (136-145); TOTAL PROTEIN 5.5 gm/dL (6.4-8.2); TRIGLYCERIDES 85 mg/dl (<150); VLDL CHOLESTEROL 17 mg/dL (6-40)
[2019-01-24 07:01] LABS: FREE T4 1.11 ng/dl (0.76-1.46); THYROID STIM HORMONE (HS) 0.543 uIU/ml (0.358-4.75)
[2019-01-24 07:20] LABS: VITAMIN D, 25-HYDROXY 18.5 ng/mL (30-100)
[2019-01-24 07:25] LABS: BURR CELLS FEW; PLATELET SUFFICIENCY NORMAL (NORMAL); TOTAL CELLS COUNTED 100 #CELLS
[2019-01-24 07:36] LABS: ACT PARTIAL THROMBO TIME 22.3 SECONDS (20.0-32.1)
[2019-01-24 08:00] VITALS: BP 160/80
[2019-01-24] MEDS ORDERED: VOLTAREN100 GM T (11:43)
[2019-01-24 12:00] VITALS: BP 143/59
--- NOTE | 2019-01-24 13:27 | NUR ---
Plant Physiology Teacher in to talk to patient. Patient states lives at HOME with . There are FEW steps in the home. Physician: Braulio MOSCOSO [facility] Home health services: NONE Patient's level of ADLs: INDEPENDENT Patient has working utilities: YES DME: WALKER, CANE, NEBULIZER SHOWER CHAIR Follow-up physician's appointment after d/c: WILL BE MADE BY HOSPITALIST NURSE DIRECTOR ON DISCHARGE Does patient want to access PORTAL?: NO Discharge plan PT STATES SHE LIVES AT HOME WITH HER AND IS INDEPENDENT IN HER CARE. PT WILL RETURN HOME ON DISCHARGE WHEN MEDICALLY STABLE. WILL CONTINUE TO FOLLOW. WILL HAVE A RIDE HOME ON DISCHARGE.. ANGÉLICA NARVAEZ
[2019-01-24 16:00] VITALS: BP 153/63
[2019-01-24 20:00] VITALS: BP 149/64
[2019-01-25] VITALS: BP 152/84
[2019-01-25 06:25] LABS: HEMATOCRIT 30.8 % (37.0-47.0); HEMOGLOBIN 9.9 g/dl (12.0-16.0); MEAN CELL VOLUME 88.5 fl (81.0-99.0); MEAN CORPUSCULAR HGB 28.4 pg (27.0-31.0); MEAN CORPUSCULAR HGB CONC 32.1 g/dl (33.0-37.0); PLATELET COUNT AUTOMATED 416 10*3/uL (130-400); RED BLOOD COUNT 3.48 10*6/uL (4.10-5.10); RED CELL DISTRI WIDTH 13.9 % (0-14.5); WHITE BLOOD COUNT 26.3 10*3/uL (4.8-10.8)
[2019-01-25 06:44] LABS: BUN 8 mg/dl (7-24); CHLORIDE 108 mmol/L (98-107); CREATININE 0.62 mg/dL (0.55-1.02); POTASSIUM 3.7 mmol/L (3.5-5.1); SODIUM 139 mmol/L (136-145)
[2019-01-25 06:52] LABS: BURR CELLS FEW; PLATELET SUFFICIENCY HIGH (NORMAL); POLYCHROMASIA SLIGHT; SCHISTOCYTES FEW; TOTAL CELLS COUNTED 100 #CELLS; TOXIC GRANULATION SLIGHT
[2019-01-25 08:00] VITALS: BP 144/80; BP 145/61
[2019-01-25] MEDS ORDERED: PREDNISONE10 MG PO (09:54)
[2019-01-25] MEDS ORDERED: AVPAK AZITHROM250 MG PO (09:54)
--- NOTE | 2019-01-25 10:45 | NUR ---
Discharge instructions reviewed with patient/family. Patient receptive and verbalizes understanding. Follow-up care arranged. Written instructions given to patient/family. KALEE BENSON
--- NOTE | 2019-01-25 10:45 | NUR ---
PT DISCHARGED AT THIS TIME WITH SPOUSE TO HOME. PT STOPPING AT PHARMACY ON HER WAY OUT TO [employer] HER HOME MEDS SENT TO PHARMACY ON ADMISSION.
== END 2019-01-25 10:45 | disposition home or self-care (01) | DRG 871 ==
LOC: ED 19:18 → 5E 21:28 → EDHOLD 21:28 → 5E 22:26
PROVIDERS: Internal Medicine; Physician Assistant; ADMIT Internal Medicine
DX: A41.9 Sepsis, unspecified organism (principal); J18.9 Pneumonia, unspecified organism; E43 Unspecified severe protein-calorie malnutrition; J44.1 Chronic obstructive pulmonary disease with (acute) exacerbation; I50.32 Chronic diastolic (congestive) heart failure; J44.0 Chronic obstructive pulmonary disease with (acute) lower respiratory infection; C92.10 Chronic myeloid leukemia, BCR/ABL-positive, not having achieved remission; R65.20 Severe sepsis without septic shock; E87.6 Hypokalemia; E87.8 Other disorders of electrolyte and fluid balance, not elsewhere classified; R73.9 Hyperglycemia, unspecified; G89.29 Other chronic pain; N32.81 Overactive bladder; I11.0 Hypertensive heart disease with heart failure; K57.90 Diverticulosis of intestine, part unspecified, without perforation or abscess without bleeding; E55.9 Vitamin D deficiency, unspecified; I27.20 Pulmonary hypertension, unspecified; I07.1 Rheumatic tricuspid insufficiency; D64.9 Anemia, unspecified; E66.01 Morbid (severe) obesity due to excess calories; I49.8 Other specified cardiac arrhythmias; K21.9 Gastro-esophageal reflux disease without esophagitis; F41.9 Anxiety disorder, unspecified; F32.9 Major depressive disorder, single episode, unspecified; I25.10 Atherosclerotic heart disease of native coronary artery without angina pectoris; J45.40 Moderate persistent asthma, uncomplicated; F41.1 Generalized anxiety disorder; E78.00 Pure hypercholesterolemia, unspecified; E78.5 Hyperlipidemia, unspecified; G62.9 Polyneuropathy, unspecified; Z91.09 Other allergy status, other than to drugs and biological substances; Z88.4 Allergy status to anesthetic agent; Z88.1 Allergy status to other antibiotic agents; Z88.2 Allergy status to sulfonamides; Z98.891 History of uterine scar from previous surgery; Z90.49 Acquired absence of other specified parts of digestive tract; Z95.5 Presence of coronary angioplasty implant and graft; Z98.51 Tubal ligation status; Z90.710 Acquired absence of both cervix and uterus; Z87.891 Personal history of nicotine dependence; Z82.49 Family history of ischemic heart disease and other diseases of the circulatory system; Z82.5 Family history of asthma and other chronic lower respiratory diseases; Z83.3 Family history of diabetes mellitus; I25.2 Old myocardial infarction; Z79.899 Other long term (current) drug therapy; Z79.82 Long term (current) use of aspirin; Z85.3 Personal history of malignant neoplasm of breast; Z68.36 Body mass index [BMI] 36.0-36.9, adult

== ENCOUNTER 2019-02-20 14:37 | Inpatient (IN) | payer MEDICARE ==
[~2019-02-20] VITALS: Ht 147.3 cm; Wt 79.9 kg
[~2019-02-20 14:37] MED LIST changes: +AVPAK AZITHROM250 MG PO; +VOLTAREN100 GM T
[2019-02-20 14:41] VITALS: BP 128/71
[2019-02-20 15:10] LABS: BASO # 0.1 10*3/uL (0.0-0.1); BASO % 0.8 % (0.0-1.0); EOS # 0.4 10*3/uL (0.0-0.4); EOS % 4.1 % (1.0-4.0); HEMATOCRIT 34.5 % (37.0-47.0); HEMOGLOBIN 10.7 g/dl (12.0-16.0); LYMPH # 2.9 10*3/uL (1.3-4.4); LYMPH % 27.1 % (27.0-41.0); MEAN CELL VOLUME 92.2 fl (81.0-99.0); MEAN CORPUSCULAR HGB 28.6 pg (27.0-31.0); MEAN PLATELET VOLUME 10.5 fl (9.6-12.3); MONO # 1.2 10*3/uL (0.1-1.0); MONO % 11.4 % (3.0-9.0); NEUT # 6.1 10*3/uL (2.3-7.9); NEUT % 56.3 % (47.0-73.0); PLATELET COUNT AUTOMATED 278 10*3/uL (130-400); RED BLOOD COUNT 3.74 10*6/uL (4.10-5.10); RED CELL DISTRI WIDTH 13.9 % (0-14.5); WHITE BLOOD COUNT 10.8 10*3/uL (4.8-10.8)
[2019-02-20 15:26] LABS: ACT PARTIAL THROMBO TIME 27.4 SECONDS (20.0-32.1); ALBUMIN 3.6 gm/dl (3.1-4.5); BUN 6 mg/dl (7-24); CHLORIDE 103 mmol/L (98-107); CREATININE 0.71 mg/dL (0.55-1.02); POTASSIUM 4.6 mmol/L (3.5-5.1); SGOT/AST 13 IU/L (3-35); SGPT/ALT 21 U/L (12-78); SODIUM 135 mmol/L (136-145); TOTAL PROTEIN 6.4 gm/dL (6.4-8.2)
[2019-02-20 15:29] LABS: ALKALINE PHOSPHATASE 125 U/L (45-117); TROPONIN I < 0.015 ng/ml (<0.045)
--- NOTE | 2019-02-20 15:30 | NUR ---
6 MISSED IV ATTEMPTS BETWEEN TWO NURSES. MADE AWARE AND IS AT BEDSIDE WITH MULTIPLE RESIDENTS FOR IV ACCESS.
[2019-02-20 15:42] VITALS: BP 185/79
[2019-02-20 16:18] VITALS: BP 206/76
[2019-02-20 16:56] VITALS: BP 180/80
--- NOTE | 2019-02-20 17:05 | NUR ---
A 68, admitted to , under the services of YVES Fiore DO with a diagnosis of CHF. Chief complaint is SHORTNESS OF BREATH. Patient arrived via bed from ER. Monitor applied. Initial assessment completed. Vital signs taken and recorded. YVES FIORE DO notified of admission to the unit. Orders received. See assessment for past medical history, medications and allergies. Patient and/or family oriented to unit. [facility] visitation policy reviewed. Clothing/patient valuable form completed. HARJIT ZIMMERMAN
[2019-02-20 17:15] VITALS: BP 177/62
[2019-02-20] MEDS ORDERED: BUSPAR15 MG PO (17:52)
[2019-02-20] MEDS ORDERED: DITROPAN XL10 MG PO (17:53)
[2019-02-20] MEDS ORDERED: MORPHINE SULFAT30 M9 PO (17:54)
[2019-02-20] MEDS ORDERED: MORPHINE SULFAT15 M7 PO (17:55)
[2019-02-20] MEDS ORDERED: IBU600 M1 PO (17:56)
--- NOTE | 2019-02-20 18:43 | NUR ---
NOTIFIED THAT MED REC IS UP TO DATE; PATIENT'S BROUGHT IN CHEMO MED FROM HOME AND EYE DROPS. WILL PASS ALONG TO NEXT NURSE TO SEND TO PHARMACY ONCE ORDER IS RECEIVED
[2019-02-20 20:00] VITALS: BP 148/68
--- NOTE | 2019-02-20 20:05 | NUR ---
24 HR chart check completed.
--- NOTE | 2019-02-20 21:00 | NUR ---
RESTING IN BED WITH NO ACUTE DISTRESS NOTED. RESPIRATIONS EASY. LUNGS DIMINISHED, CLEAR. PULSE OX 99% RA. CALL LIGHT WITHIN REACH. NO VOICED COMPLAINTS
--- NOTE | 2019-02-20 22:04 | NUR ---
MEDICATED WITH RESTORIL PER PRN ORDER TO ASSIST WITH SLEEP. WILL MONITOR
[2019-02-21] VITALS: BP 132/59
--- NOTE | 2019-02-21 | NUR ---
MEDS EFFECTIVE. SLEEPING. RESPIRATIONS EASY. VSS. CALL LIGHT WITHIN REACH
--- NOTE | 2019-02-21 03:00 | NUR ---
SLEEPING. NO DISTRESS NOTED. RESPIRATIONS EASY. CALL LIGHT WITHIN REACH
--- NOTE | 2019-02-21 06:00 | NUR ---
SLEPT THROUGHOUT NIGHT WITH NO DISTRESS NOTED. RESPIRATIONS EASY. CALL LIGHT WITHIN REACH. NO VOICED COMPLAINTS THIS SHIFT
[2019-02-21 06:46] LABS: BASO # 0.1 10*3/uL (0.0-0.1); BASO % 0.8 % (0.0-1.0); EOS # 0.4 10*3/uL (0.0-0.4); EOS % 3.5 % (1.0-4.0); HEMATOCRIT 35.5 % (37.0-47.0); HEMOGLOBIN 11.2 g/dl (12.0-16.0); LYMPH % 27.6 % (27.0-41.0); MEAN CELL VOLUME 91.3 fl (81.0-99.0); MEAN CORPUSCULAR HGB 28.8 pg (27.0-31.0); MEAN CORPUSCULAR HGB CONC 31.5 g/dl (33.0-37.0); MEAN PLATELET VOLUME 10.9 fl (9.6-12.3); MONO # 1.4 10*3/uL (0.1-1.0); MONO % 12.7 % (3.0-9.0); NEUT % 55.1 % (47.0-73.0); PLATELET COUNT AUTOMATED 291 10*3/uL (130-400); RED BLOOD COUNT 3.89 10*6/uL (4.10-5.10); RED CELL DISTRI WIDTH 13.8 % (0-14.5); WHITE BLOOD COUNT 10.9 10*3/uL (4.8-10.8)
[2019-02-21 07:19] LABS: ALBUMIN 3.6 gm/dl (3.1-4.5); BUN 9 mg/dl (7-24); CHLORIDE 102 mmol/L (98-107); CREATININE 0.78 mg/dL (0.55-1.02); PHOSPHOROUS 3.4 mg/dL (2.5-4.9); SGOT/AST 16 IU/L (3-35); SGPT/ALT 20 U/L (12-78); SODIUM 139 mmol/L (136-145)
[2019-02-21 07:21] LABS: ALKALINE PHOSPHATASE 123 U/L (45-117); TOTAL PROTEIN 6.3 gm/dL (6.4-8.2)
[2019-02-21 08:00] VITALS: BP 170/80
--- NOTE | 2019-02-21 09:00 | NUR ---
Funeral Service Apprentice in to talk to patient. Patient states lives at home with . There are few steps in the home. Physician: bryson lopez [facility] Home health services: none Patient's level of ADLs: INDEPENDENT Patient has working utilities: all working DME: walker, cane, shower chair,nebulizer Follow-up physician's appointment after d/c: will be made by hospitalist nurse director upon discharge Does patient want to access PORTAL?: no Discharge plan discussed with patient, she lives at home with her , she states she is independent in adls and ambulation she states she will return home when medically stable. discussed with her VNA and she was receptive to this, given choice of companies she chose [id number], will notify [facility] when patient is medically stable for discharge no other needs at this time. ZOILA MANN
--- NOTE | 2019-02-21 11:32 | NUR ---
FAMILY AT BEDSIDE - NO C/O
[2019-02-21 12:00] VITALS: BP 140/70
--- NOTE | 2019-02-21 14:50 | NUR ---
Patient not available for echo. Not in room at this time.
[2019-02-21 16:00] VITALS: BP 144/55; BP 151/58
--- NOTE | 2019-02-21 19:00 | NUR ---
PT IS ASLEEP IN BED AT THIS TIME. NO S/S OF DISTRESS NOTED. CALL LIGHT IS WITHIN REACH, WILL CONTINUE TO MONITOR.
[2019-02-21 20:00] VITALS: BP 116/41; BP 176/73; BP 191/69
[2019-02-22] VITALS: BP 150/56
[2019-02-22 06:55] LABS: BASO # 0.1 10*3/uL (0.0-0.1); BASO % 0.8 % (0.0-1.0); EOS # 0.5 10*3/uL (0.0-0.4); HEMATOCRIT 34.8 % (37.0-47.0); HEMOGLOBIN 11.2 g/dl (12.0-16.0); LYMPH # 3.3 10*3/uL (1.3-4.4); MEAN CELL VOLUME 89.5 fl (81.0-99.0); MEAN CORPUSCULAR HGB 28.8 pg (27.0-31.0); MEAN CORPUSCULAR HGB CONC 32.2 g/dl (33.0-37.0); MEAN PLATELET VOLUME 10.8 fl (9.6-12.3); MONO # 1.4 10*3/uL (0.1-1.0); MONO % 12.3 % (3.0-9.0); NEUT % 53.5 % (47.0-73.0); PLATELET COUNT AUTOMATED 283 10*3/uL (130-400); RED BLOOD COUNT 3.89 10*6/uL (4.10-5.10); RED CELL DISTRI WIDTH 13.7 % (0-14.5); WHITE BLOOD COUNT 11.3 10*3/uL (4.8-10.8)
[2019-02-22 07:07] LABS: BUN 9 mg/dl (7-24); CHLORIDE 100 mmol/L (98-107); CREATININE 0.71 mg/dL (0.55-1.02); POTASSIUM 3.9 mmol/L (3.5-5.1); SODIUM 135 mmol/L (136-145)
[2019-02-22 08:00] VITALS: BP 152/58
--- NOTE | 2019-02-22 09:00 | NUR ---
case management visits with patient, she states she will be discharged to home today. case management notified [facility] that she will be discharged to home today
[2019-02-22] MEDS ORDERED: TOPROL XL25 MG PO (10:15)
[2019-02-22] MEDS ORDERED: LASIX20 MG PO (10:15)
[2019-02-22] MEDS ORDERED: LISINOPRIL20 MG PO (10:15)
--- NOTE | 2019-02-22 11:06 | NUR ---
PT DISCHARGED AT THIS TIME. IV REMOVED AND PRESSURE DRESSING APPLIED. VERBALIZED UNDERSTANDING OF DISCHARGE INSTRUCTIONS.
== END 2019-02-22 11:06 | disposition home health service (06) | DRG 292 ==
LOC: ED 14:37 → 4E 15:59 → EDHOLD 15:59 → 4E 16:41
PROVIDERS: Emergency Medicine; Internal Medicine; ADMIT Family Medicine
DX: I11.0 Hypertensive heart disease with heart failure (principal); E87.1 Hypo-osmolality and hyponatremia; C92.10 Chronic myeloid leukemia, BCR/ABL-positive, not having achieved remission; Z68.41 Body mass index [BMI] 40.0-44.9, adult; I50.33 Acute on chronic diastolic (congestive) heart failure; E66.01 Morbid (severe) obesity due to excess calories; J44.9 Chronic obstructive pulmonary disease, unspecified; F41.9 Anxiety disorder, unspecified; I25.10 Atherosclerotic heart disease of native coronary artery without angina pectoris; G89.29 Other chronic pain; F32.9 Major depressive disorder, single episode, unspecified; K57.90 Diverticulosis of intestine, part unspecified, without perforation or abscess without bleeding; K21.9 Gastro-esophageal reflux disease without esophagitis; D64.9 Anemia, unspecified; D72.1 Eosinophilia; R73.9 Hyperglycemia, unspecified; E78.5 Hyperlipidemia, unspecified; G62.9 Polyneuropathy, unspecified; I25.2 Old myocardial infarction; Z86.73 Personal history of transient ischemic attack (TIA), and cerebral infarction without residual deficits; Z85.3 Personal history of malignant neoplasm of breast; Z87.891 Personal history of nicotine dependence; Z98.891 History of uterine scar from previous surgery; Z90.49 Acquired absence of other specified parts of digestive tract; Z90.710 Acquired absence of both cervix and uterus; Z98.51 Tubal ligation status; Z82.49 Family history of ischemic heart disease and other diseases of the circulatory system; Z82.5 Family history of asthma and other chronic lower respiratory diseases; Z88.2 Allergy status to sulfonamides; Z88.8 Allergy status to other drugs, medicaments and biological substances; Z88.1 Allergy status to other antibiotic agents; Z91.040 Latex allergy status; Z79.899 Other long term (current) drug therapy; Z79.82 Long term (current) use of aspirin; Z83.3 Family history of diabetes mellitus

== ENCOUNTER 2019-03-13 19:25 | Inpatient (IN) | payer MEDICARE ==
[~2019-03-13] VITALS: Ht 147.3 cm; Wt 79.4 kg
[~2019-03-13 19:25] MED LIST changes: +BUSPAR15 MG PO; +IBU600 M1 PO; +MORPHINE SULFAT15 M7 PO; +MORPHINE SULFAT30 M9 PO; +TOPROL XL25 MG PO
[2019-03-13 19:29] VITALS: BP 150/54
[2019-03-13 21:17] LABS: HEMATOCRIT 36.5 % (37.0-47.0); HEMOGLOBIN 12.6 g/dl (12.0-16.0); MEAN CELL VOLUME 83.1 fl (81.0-99.0); MEAN CORPUSCULAR HGB 28.7 pg (27.0-31.0); MEAN CORPUSCULAR HGB CONC 34.5 g/dl (33.0-37.0); MEAN PLATELET VOLUME 10.3 fl (9.6-12.3); PLATELET COUNT AUTOMATED 263 10*3/uL (130-400); RED BLOOD COUNT 4.39 10*6/uL (4.10-5.10); RED CELL DISTRI WIDTH 12.5 % (0-14.5); WHITE BLOOD COUNT 22.6 10*3/uL (4.8-10.8)
[2019-03-13 21:33] LABS: ALBUMIN 3.7 gm/dl (3.1-4.5); ALKALINE PHOSPHATASE 103 U/L (45-117); BUN 6 mg/dl (7-24); CHLORIDE 93 mmol/L (98-107); CREATININE 0.67 mg/dL (0.55-1.02); LIPASE 46 U/L (73-393); POTASSIUM 3.4 mmol/L (3.5-5.1); SGOT/AST 41 IU/L (3-35); SGPT/ALT 36 U/L (12-78); SODIUM 124 mmol/L (136-145); TOTAL PROTEIN 6.6 gm/dL (6.4-8.2)
[2019-03-13 21:34] LABS: TROPONIN I 0.325 ng/ml (<0.045)
[2019-03-13 21:43] LABS: ATYPICAL LYMPHS 1 % (0-0); BURR CELLS MODERATE; PLATELET SUFFICIENCY NORMAL (NORMAL); TOTAL CELLS COUNTED 100 #CELLS
--- NOTE | 2019-03-13 21:50 | NUR ---
EKG IN ROOM
--- NOTE | 2019-03-13 22:41 | NUR ---
PATIENT MEDICATED WITHOUT INCIDENT.
--- NOTE | 2019-03-13 23:14 | NUR ---
PT STATES SHE IS UNABLE TO VOID AT THIS TIME. LARISA CARLOS RN.
[2019-03-13 23:32] LABS: BILIRUBIN NEGATIVE (NEGATIVE); BLOOD 1+ (NEGATIVE); CLARITY SL CLOUDY (CLEAR); COLOR YELLOW (YELLOW); GLUCOSE TRACE (NEGATIVE); KETONE 1+ (NEGATIVE); LEUKO ESTERASE NEGATIVE (NEGATIVE); NITRITE NEGATIVE (NEGATIVE); SPECIFIC GRAVITY >= 1.030 (1.005-1.030); UROBILINOGEN 0.2 E.U./dl (0.2-1.0)
[2019-03-14] VITALS (22 sets, daily range): BP systolic 90–187; BP diastolic 45–97
--- NOTE | 2019-03-14 01:35 | NUR ---
A 68, admitted to [facility], under the services of MAHENDRA Gann DO with a diagnosis of CHF,NSTEMI. Chief complaint is NAUSEA/VOMITING,SHORTNESS OF BREATH. Patient arrived via bed from ER. Monitor applied. Initial assessment completed. Vital signs taken and recorded. MAHENDRA GANN DO notified of admission to the unit. Orders received. See assessment for past medical history, medications and allergies. Patient and/or family oriented to unit. [facility] visitation policy reviewed. Clothing/patient valuable form completed. MAGO DAS
[2019-03-14] MEDS ORDERED: LEXAPRO20 MG PO (01:51)
[2019-03-14] MEDS ORDERED: ATIVAN0.5 MG PO (01:51)
[2019-03-14] MEDS ORDERED: ONDANSETRON HYDR8 MG PO (01:53)
[2019-03-14] MEDS ORDERED: DITROPAN XL10 MG PO (01:55)
[2019-03-14] MEDS ORDERED: TRELEGY ELLIPT1 EACH INH (01:56)
[2019-03-14] MEDS ORDERED: TYLENOL325 M3 PO (01:57)
[2019-03-14] MEDS ORDERED: Ipratropium Brom3 ML INH (01:59)
[2019-03-14] MEDS ORDERED: TASIGNA200 MG PO (02:00)
--- NOTE | 2019-03-14 02:00 | NUR ---
PATIENT REQESTED A SLEEPING PILL, NEW ORDER RECEIVED FOR RESTORIL. WAS GIVEN, WILL MONITOR AND REASSESS.
--- NOTE | 2019-03-14 03:30 | NUR ---
PATIENT UP TO RESTROOM, PATIENT STATES SHES NOT SLEEPING VERY WELL. RESTORIL NOT EFFECTIVE.
[2019-03-14 05:08] LABS: ALBUMIN 3.8 gm/dl (3.1-4.5); ALKALINE PHOSPHATASE 99 U/L (45-117); BUN 6 mg/dl (7-24); CHLORIDE 92 mmol/L (98-107); CREATININE 0.74 mg/dL (0.55-1.02); POTASSIUM 3.1 mmol/L (3.5-5.1); SGOT/AST 53 IU/L (3-35); SGPT/ALT 40 U/L (12-78); SODIUM 126 mmol/L (136-145); TOTAL PROTEIN 6.6 gm/dL (6.4-8.2)
[2019-03-14 06:22] LABS: HEMATOCRIT 37.3 % (37.0-47.0); HEMOGLOBIN 12.9 g/dl (12.0-16.0); MEAN CELL VOLUME 82.3 fl (81.0-99.0); MEAN CORPUSCULAR HGB 28.5 pg (27.0-31.0); MEAN CORPUSCULAR HGB CONC 34.6 g/dl (33.0-37.0); PLATELET COUNT AUTOMATED 290 10*3/uL (130-400); RED BLOOD COUNT 4.53 10*6/uL (4.10-5.10); RED CELL DISTRI WIDTH 12.6 % (0-14.5); WHITE BLOOD COUNT 25.9 10*3/uL (4.8-10.8)
[2019-03-14 06:58] LABS: PLATELET SUFFICIENCY NORMAL (NORMAL); TOTAL CELLS COUNTED 100 #CELLS; TOXIC GRANULATION SLIGHT
[2019-03-14 06:59] LABS: POLYCHROMASIA SLIGHT
--- NOTE | 2019-03-14 07:44 | NUR ---
Shift chart check completed.24 HR chart check completed. On assessment patient is alert, oriented, sitting at the side of the bed. Assisted to ambulate to recliner chair. Patient is weak, gait fairly steady. Nitro drip continues at 10mcg/min. Manual BP 150/90. No voiced complaints of pain or shortness of breath at this time. No peripheral edema. See all appropriate interventions.
--- NOTE | 2019-03-14 08:22 | NUR ---
Pt back to bed per her request. She complains of pain and burning in her "belly". Dr Donaldson made aware that med rec is up to date. Pt medicated with IVZofran for nausea and IVMorphine for pain. Assisted to position of comfort.
--- NOTE | 2019-03-14 11:49 | NUR ---
PT MEDICATED WITH TYLENOL FOR C/O BODY ACHES AND ALSO TEMP OF 100.3
--- NOTE | 2019-03-14 12:12 | NUR ---
DR SCOTT NOTIFIED THAT PT HUNGRY AND WANTS TO TRY MORE THAN JUST LIQUIDS. ORDERS RECEIVED.
--- NOTE | 2019-03-14 13:20 | NUR ---
PT FEELING BETTER THIS AFTERNOON SINCE EARLIER PRN AND SCHEDULED MEDS. SITTING AT SIDE OF BED, EATING WELL FOR LUNCH. VISITING.
--- NOTE | 2019-03-14 14:23 | NUR ---
DR SHEN NOTIFIED OF CONSULTATION. REVIEWED LABS, CT SCAN. LET HIM KNOW THAT PT WAS HUNGRY THIS AFTERNOON, ATE WELL FOR LUNCH WITHOUT NAUSEA OR VOMITING. NO NEW ORDERS.
--- NOTE | 2019-03-14 17:30 | NUR ---
RESTING EASILY WITH VISITORS AT BEDSIDE. NITRO DRIP DECREASED TO 5MCG/MIN FOR BP 90'S.
--- NOTE | 2019-03-14 19:07 | NUR ---
PT SAYS "I FEEL SO MUCH BETTER".
--- NOTE | 2019-03-14 20:34 | NUR ---
1944 RESTING IN BED WITH HOB ELEVATED. SIDE RAILS UP X'S 2. CALL LIGHT IN REACH. PULSE OX 98% ON RA. NO C/O'S ABD PAIN OR CHEST PAIN VOICED AT PRESENT TIME. NITRO GTT CONT. SEE INTERVENTION SCREEN.
--- NOTE | 2019-03-14 22:08 | NUR ---
RESTING IN BED WITH EYES CLOSED. APPEARS TO BE SLEEPING. EARLIER ROUTINE MS CONTIN EFFECTIVE.
--- NOTE | 2019-03-14 23:38 | NUR ---
2320 RESTORIL PO FOR SLEEP. WILL MONITOR.
[2019-03-15] VITALS (16 sets, daily range): BP systolic 84–108; BP diastolic 39–70
--- NOTE | 2019-03-15 00:27 | NUR ---
EARLIER RESTORIL EFFECTIVE. RESTING IN BED WITH EYES CLOSED. APPEARS TO BE SLEEPING.
--- NOTE | 2019-03-15 02:04 | NUR ---
0130 UP TO BR. LINENS AND GOWN SOILED WITH LIQUID, BROWN STOOL. BATH TAKEN IN BR PER SELF. LINENS CHANGED. TOLERATED WELL. BACK TO BED WITH CALL LIGHT IN REACH. REMAINS NPO FOR POSSIBLE HEART CATH AM.
[2019-03-15 05:17] LABS: HEMATOCRIT 35.2 % (37.0-47.0); HEMOGLOBIN 11.9 g/dl (12.0-16.0); MEAN CELL VOLUME 83.6 fl (81.0-99.0); MEAN CORPUSCULAR HGB 28.3 pg (27.0-31.0); MEAN CORPUSCULAR HGB CONC 33.8 g/dl (33.0-37.0); MEAN PLATELET VOLUME 10.9 fl (9.6-12.3); PLATELET COUNT AUTOMATED 228 10*3/uL (130-400); RED BLOOD COUNT 4.21 10*6/uL (4.10-5.10); RED CELL DISTRI WIDTH 12.9 % (0-14.5); WHITE BLOOD COUNT 15.5 10*3/uL (4.8-10.8)
[2019-03-15 05:23] LABS: CREATININE 1.45 mg/dL (0.55-1.02); PHOSPHOROUS 3.2 mg/dL (2.5-4.9); POTASSIUM 3.7 mmol/L (3.5-5.1); TOTAL PROTEIN 5.5 gm/dL (6.4-8.2)
[2019-03-15 05:39] LABS: ATYPICAL LYMPHS 1 % (0-0); BURR CELLS MODERATE; TOTAL CELLS COUNTED 100 #CELLS
[2019-03-15 05:40] LABS: OVALOCYTES FEW; PLATELET SUFFICIENCY NORMAL (NORMAL)
--- NOTE | 2019-03-15 06:09 | NUR ---
REMAINS WITHOUT C/O'S. REMAINS NPO. NO DISTRESS NOTED. CONDITION GUARDED.
--- NOTE | 2019-03-15 07:29 | NUR ---
Shift chart check completed.
--- NOTE | 2019-03-15 07:51 | NUR ---
MEDICATED WITH ZOFRAN TO PREVENT NAUSEA/VOMITING. SMALL AMOUNT OF BROWN DIARRHEA (MUCH IMPROVED PER PT) - ROUTINE MS CONTIN/METOPROLOL & LEXAPRO GIVEN WITH SIP OF WATER. NTG DRIP REMAINS AT 5 mcg/min.
--- NOTE | 2019-03-15 08:00 | NUR ---
Senior Budget Analyst in to talk to patient. Patient states lives at home with . There are 20 steps in the home. Physician: Dr. Mine Zavala [facility]: she currently has [facility] and would like to resume those services upon discharge Patient's level of ADLs: minimal assistance Patient has working utilities: yes DME: walker, cane, shower chair, nebulizer Follow-up physician's appointment after d/c: will be made by the hospitalist nurse director upon discharge Does patient want to access PORTAL?: no Discharge plan discussed with patient. She lives at home with her . She is independent in her ADLs and ambulates with a cane. Discussed home health care services and she currently has [facility] and would like to resume those services upon discharge. When medically stable she will be discharged to home. Her will provide transportation on discharge. Dr. Shay consulted for abdominal pain, cardiology on consult, nitro gtt, BC pending, temp 87.6 this morning. SEBLE ZHU
--- NOTE | 2019-03-15 08:27 | NUR ---
DR SHEN RROUNDED & EXAMINED PATIENT - NO SURGICAL NEEDS NEEDED AT THIS TIME
--- NOTE | 2019-03-15 09:05 | NUR ---
RESTING QUIETLY WITH NO C/O PAIN AT THIS TIME
--- NOTE | 2019-03-15 09:23 | NUR ---
DR LANZA ROUNDED - PATIENT SEEN AND CASE DISCUSSED WITH PATIENT AT LENGTH. PLAN IS TO RECHECK BUN/CRET TOMORROW & MAY NEED IVF. FOR HEART CATH WEDNESDAY AT [facility] PATIENT BECOMES SYMPTOMATIC WITH CHEST PAIN & EKG CHANGES. NTG DRIP DISCONTINUED AND MAY GO TO [facility] THIS AFTERNOON OF REMAINS STABLE.
--- NOTE | 2019-03-15 10:00 | NUR ---
BLOCKLAYER VI AWARE OF PATIENT DOWNGRADED
--- NOTE | 2019-03-15 10:27 | NUR ---
Pain cream applied to bilat legs per pt request. Sitting up in chair waiting on food & talking on phone
--- NOTE | 2019-03-15 15:55 | NUR ---
PT REQUESTED AND RECEIVED MORPHINE SULFATE 15MG PER PRN ORDER FOR C/O LEG AND BACK PAIN. RATES PAIN /10. WILL MONITOR EFFECTIVENESS. CALL LIGHT WITHIN REACH.
--- NOTE | 2019-03-15 17:00 | NUR ---
PAIN MEDICATION EFFECTIVE PER PT. WILL CONTINUE TO MONITOR.
--- NOTE | 2019-03-15 23:20 | NUR ---
IN TO ASSESS PT AT THIS TIME. PT C/O HEADACHE & STATES THAT SHE BELIEVES IT WAS FROM "LISTENING TO HER IV BEEP FOR SO LONG". PT REQUESTS A SLEEPING PILL. WILL CONTINUE TO MONITOR. NO OTHER COMPLAINTS.
--- NOTE | 2019-03-15 23:25 | NUR ---
RESTORIL ADMINISTERED AT THIS TIME FOR PT C/O INSOMNIA.
[2019-03-16] VITALS: BP 95/58
--- NOTE | 2019-03-16 00:40 | NUR ---
24 HOUR CHART CHECK COMPLETE.
[2019-03-16 06:39] LABS: HEMATOCRIT 38.1 % (37.0-47.0); HEMOGLOBIN 12.7 g/dl (12.0-16.0); MEAN CORPUSCULAR HGB 28.7 pg (27.0-31.0); MEAN CORPUSCULAR HGB CONC 33.3 g/dl (33.0-37.0); MEAN PLATELET VOLUME 10.7 fl (9.6-12.3); PLATELET COUNT AUTOMATED 282 10*3/uL (130-400); RED BLOOD COUNT 4.43 10*6/uL (4.10-5.10); RED CELL DISTRI WIDTH 12.5 % (0-14.5); WHITE BLOOD COUNT 15.3 10*3/uL (4.8-10.8)
[2019-03-16 07:04] LABS: CREATININE 1.92 mg/dL (0.55-1.02); POTASSIUM 3.4 mmol/L (3.5-5.1)
[2019-03-16 07:37] LABS: BASOPHILS 2 % (0-1); PLATELET SUFFICIENCY NORMAL (NORMAL); TOTAL CELLS COUNTED 100 #CELLS
[2019-03-16 07:38] LABS: BURR CELLS FEW; TOXIC GRANULATION SLIGHT
[2019-03-16 08:00] VITALS: BP 126/61
[2019-03-16 12:00] VITALS: BP 102/46
[2019-03-16 16:00] VITALS: BP 103/48
--- NOTE | 2019-03-16 19:30 | NUR ---
IN TO SEE PT AT THIS TIME. PT SITTING UP IN HER CHAIR. PT HAS NO COMPLAINTS, RESPIRATIONS EASY AND NONLABORED. DENIES ANY CHEST PAIN. PT AWARE OF TRANSFER TO [facility] TOMORROW AT 0700 FOR HEART CATH. WILL CONTINUE TO MONITOR.
[2019-03-16 20:00] VITALS: BP 114/61
--- NOTE | 2019-03-16 21:25 | NUR ---
DR PIERRE NOTIFIED OF NEED FOR D/C ORDERS, PT TO BE TRANSFERRED TO [facility] TOMORROW AM FOR HEART CATH.
--- NOTE | 2019-03-16 21:35 | NUR ---
24 HOUR CHART CHECK COMPLETE.
--- NOTE | 2019-03-16 21:57 | NUR ---
RESTORIL ADMINISTERED FOR PT C/O INSOMNIA.
--- NOTE | 2019-03-16 23:15 | NUR ---
PATIENT ASSESSED AT THIS TIME, RESTING IN BED WITH EYES CLOSED, RESPIRATIONS EASY AND NON-LABORED AT THIS TIME, AROUSES EASILY AND IS APPROPRIATE. IV INFUSING WITHOUT INCIDENT AT THIS TIME. CALL LIGHT WITHIN REACH, WILL CONTINUE TO MONITOR.
[2019-03-17] VITALS: BP 118/50
--- NOTE | 2019-03-17 00:05 | NUR ---
PATIENT RESTING IN A POSITION OF COMFORT IN BED, EYES CLOSED, RESPIRATIONS EASY AND NON-LABORED AT THIS TIME, AROUSES EASILY AND IS APPROPRIATE, DENIES ANY NEEDS AT THIS TIME. CALL LIGHT WITHIN REACH, WILL CONTINUE TO MONITOR.
--- NOTE | 2019-03-17 00:05 | NUR ---
PATIENT RESTING IN BED IN A POSITION OF COMFORT WITH EYES CLOSED, RESPIRATIONS EASY AND NON-LABORED, AROUSES EASILY AND IS APPROPRIATE. CALL LIGHT WITHIN REACH. IV INFUSING WITHOUT INCIDENT AT THIS TIME. WILL CONTINUE TO MONITOR.
--- NOTE | 2019-03-17 04:05 | NUR ---
PATIENT RESTING IN BED IN A POSITION OF COMFORT WITH EYES CLOSED, RESPIRATIONS EASY AND NON-LABORED, NO SIGNS OR SYMPTOMS OF DISTRESS NOTED AT THIS TIME. CALL LIGHT WITHIN REACH. NOT AWAKENED PER [facility] POLICY. WILL CONTINUE TO MONITOR.
[2019-03-17 06:46] LABS: HEMATOCRIT 37.5 % (37.0-47.0); HEMOGLOBIN 12.3 g/dl (12.0-16.0); MEAN CELL VOLUME 86.2 fl (81.0-99.0); MEAN CORPUSCULAR HGB 28.3 pg (27.0-31.0); MEAN CORPUSCULAR HGB CONC 32.8 g/dl (33.0-37.0); MEAN PLATELET VOLUME 10.8 fl (9.6-12.3); PLATELET COUNT AUTOMATED 236 10*3/uL (130-400); RED BLOOD COUNT 4.35 10*6/uL (4.10-5.10); RED CELL DISTRI WIDTH 12.6 % (0-14.5); WHITE BLOOD COUNT 11.8 10*3/uL (4.8-10.8)
[2019-03-17 06:47] LABS: ALBUMIN 3.3 gm/dl (3.1-4.5); CREATININE 1.21 mg/dL (0.55-1.02); POTASSIUM 4.3 mmol/L (3.5-5.1); TOTAL PROTEIN 6.2 gm/dL (6.4-8.2)
--- NOTE | 2019-03-17 06:55 | NUR ---
CALLED [facility] AT THIS TIME REPORT GIVEN TO MICHAEL ALL QUESTIONS ANSWERED TO HIS SATISFACTION, ADVISED HIM THAT CURRENT MEDICATIONS LIST WAS IN DISCHARGE PACKET AND IF ANY FURTHER QUESTIONS TO CALL BACK. PATIENT DISCHARGE INFORMATION REVIEWED WITH PATIENT AND HOME MEDICATIONS AND BELONGINGS WITH PATIENT ON BED. WAITING ON [facility] AT THIS TIME FOR TRANSFER.
--- NOTE | 2019-03-17 07:25 | NUR ---
[facility] HERE AT THIS TIME TO TRANSFER PATIENT TO [facility] AT THIS TIME FOR MARKETING FINANCE SPECIALIST INTERVENTION.
[2019-03-17 07:36] LABS: ACANTHOCYTES MODERATE; BASOPHILS 2 % (0-1); PLATELET SUFFICIENCY NORMAL (NORMAL); TOTAL CELLS COUNTED 100 #CELLS
== END 2019-03-17 07:25 | disposition other institution (70) | DRG 871 ==
LOC: ED 19:25 → ICCU 03-14 00:31 → EDHOLD 03-14 00:31 → ICCU 03-14 00:47 → 5E 03-15 13:41
PROVIDERS: Emergency Medicine; Internal Medicine; ADMIT Internal Medicine
DX: A41.9 Sepsis, unspecified organism (principal); I21.4 Non-ST elevation (NSTEMI) myocardial infarction; I50.33 Acute on chronic diastolic (congestive) heart failure; E87.1 Hypo-osmolality and hyponatremia; C92.10 Chronic myeloid leukemia, BCR/ABL-positive, not having achieved remission; N17.9 Acute kidney failure, unspecified; K52.9 Noninfective gastroenteritis and colitis, unspecified; E87.6 Hypokalemia; R74.0 Nonspecific elevation of levels of transaminase and lactic acid dehydrogenase [LDH]; R65.20 Severe sepsis without septic shock; K21.9 Gastro-esophageal reflux disease without esophagitis; E66.01 Morbid (severe) obesity due to excess calories; I10 Essential (primary) hypertension; J44.9 Chronic obstructive pulmonary disease, unspecified; I25.118 Atherosclerotic heart disease of native coronary artery with other forms of angina pectoris; F41.9 Anxiety disorder, unspecified; E78.5 Hyperlipidemia, unspecified; I08.1 Rheumatic disorders of both mitral and tricuspid valves; F32.9 Major depressive disorder, single episode, unspecified; I27.20 Pulmonary hypertension, unspecified; K57.90 Diverticulosis of intestine, part unspecified, without perforation or abscess without bleeding; G62.9 Polyneuropathy, unspecified; G89.29 Other chronic pain; D64.9 Anemia, unspecified; E83.42 Hypomagnesemia; I11.0 Hypertensive heart disease with heart failure; Z88.4 Allergy status to anesthetic agent; Z88.1 Allergy status to other antibiotic agents; Z88.2 Allergy status to sulfonamides; Z91.09 Other allergy status, other than to drugs and biological substances; Z88.8 Allergy status to other drugs, medicaments and biological substances; Z85.3 Personal history of malignant neoplasm of breast; I25.2 Old myocardial infarction; Z98.891 History of uterine scar from previous surgery; Z90.49 Acquired absence of other specified parts of digestive tract; Z90.710 Acquired absence of both cervix and uterus; Z98.51 Tubal ligation status; Z87.891 Personal history of nicotine dependence; Z82.49 Family history of ischemic heart disease and other diseases of the circulatory system; Z82.5 Family history of asthma and other chronic lower respiratory diseases; Z83.3 Family history of diabetes mellitus; Z86.73 Personal history of transient ischemic attack (TIA), and cerebral infarction without residual deficits; Z79.899 Other long term (current) drug therapy; Z79.82 Long term (current) use of aspirin; Z68.35 Body mass index [BMI] 35.0-35.9, adult

== ENCOUNTER 2019-05-16 13:02 | Inpatient (IN) | payer OTHER ==
[~2019-05-16] VITALS: Ht 144.7 cm; Wt 74.6 kg
[~2019-05-16 13:02] MED LIST changes: +ONDANSETRON HYDR8 MG PO; +TRELEGY ELLIPT1 EACH INH; +TYLENOL325 M3 PO
[2019-05-16 13:12] VITALS: BP 96/45
[2019-05-16 13:25] LABS: BASO # 0.1 10*3/uL (0.0-0.1); BASO % 0.4 % (0.0-1.0); EOS # 0.2 10*3/uL (0.0-0.4); EOS % 1.4 % (1.0-4.0); HEMATOCRIT 33.3 % (37.0-47.0); HEMOGLOBIN 11.6 g/dl (12.0-16.0); LYMPH # 2.2 10*3/uL (1.3-4.4); LYMPH % 15.5 % (27.0-41.0); MEAN CELL VOLUME 82.6 fl (81.0-99.0); MEAN CORPUSCULAR HGB 28.8 pg (27.0-31.0); MEAN CORPUSCULAR HGB CONC 34.8 g/dl (33.0-37.0); MONO # 1.3 10*3/uL (0.1-1.0); MONO % 9.6 % (3.0-9.0); NEUT # 10.1 10*3/uL (2.3-7.9); NEUT % 72.7 % (47.0-73.0); PLATELET COUNT AUTOMATED 283 10*3/uL (130-400); RED BLOOD COUNT 4.03 10*6/uL (4.10-5.10); RED CELL DISTRI WIDTH 13.2 % (0-14.5); WHITE BLOOD COUNT 13.9 10*3/uL (4.8-10.8)
[2019-05-16 13:35] LABS: ACT PARTIAL THROMBO TIME 28.4 SECONDS (20.0-32.1)
[2019-05-16 13:38] VITALS: BP 113/52
[2019-05-16 13:49] LABS: ALBUMIN 3.5 gm/dl (3.1-4.5); ALKALINE PHOSPHATASE 78 U/L (45-117); BUN 10 mg/dl (7-24); CHLORIDE 84 mmol/L (98-107); CREATININE 0.98 mg/dL (0.55-1.02); POTASSIUM 4.6 mmol/L (3.5-5.1); SGOT/AST 46 IU/L (3-35); SGPT/ALT 37 U/L (12-78); TOTAL PROTEIN 6.1 gm/dL (6.4-8.2)
[2019-05-16 13:52] LABS: SODIUM 117 mmol/L (136-145); TROPONIN I < 0.015 ng/ml (<0.045)
[2019-05-16 14:09] VITALS: BP 100/60
--- NOTE | 2019-05-16 15:31 | NUR ---
CCAA 68, admitted to , under the services of NYDIA Slade DO with a diagnosis of HYPONATREMIA. Chief complaint is DENIES C/O AT PRESENT. Patient arrived via bed from ER. Monitor applied. Initial assessment completed. Vital signs taken and recorded. NYDIA SLADE DO notified of admission to the unit. Orders received. See assessment for past medical history, medications and allergies. Patient and/or family oriented to unit. [facility] visitation policy reviewed. Clothing/patient valuable form completed. LINDA MEJIA
[2019-05-16 16:00] VITALS: BP 92/53
--- NOTE | 2019-05-16 16:48 | NUR ---
DR. SOMMER'S ANSWERING SERVICE NOTIFIED OF CONSULT. DR. MARTINEZ NOTIFIED OF CONSULT.
[2019-05-16 17:20] LABS: URINE CREATININE RANDOM 59.7 mg/dL
[2019-05-16 17:25] LABS: BILIRUBIN NEGATIVE (NEGATIVE); BLOOD 3+ (NEGATIVE); CLARITY CLEAR (CLEAR); COLOR YELLOW (YELLOW); GLUCOSE NEGATIVE (NEGATIVE); KETONE NEGATIVE (NEGATIVE); LEUKO ESTERASE NEGATIVE (NEGATIVE); NITRITE NEGATIVE (NEGATIVE); SPECIFIC GRAVITY 1.015 (1.005-1.030); UROBILINOGEN 0.2 E.U./dl (0.2-1.0)
[2019-05-16 17:27] LABS: BACTERIA TRACE
[2019-05-16 18:30] LABS: ALBUMIN 3.5 gm/dl (3.1-4.5); ALKALINE PHOSPHATASE 100 U/L (45-117); BUN 9 mg/dl (7-24); CHLORIDE 83 mmol/L (98-107); POTASSIUM 4.7 mmol/L (3.5-5.1); SGOT/AST 46 IU/L (3-35); SGPT/ALT 37 U/L (12-78); TOTAL PROTEIN 6.2 gm/dL (6.4-8.2)
[2019-05-16 18:40] LABS: SODIUM 117 mmol/L (136-145)
--- NOTE | 2019-05-16 19:35 | NUR ---
CALLED AND SPOKE [facility] DR. MARTINEZ ABOUT SERUM OSMOLALITY 245. ORDERS RECEIVED TO SEND URINE OSMOLALITY AND IF SYSTOLIC BP LESS THAN 100 MAY INCREASE IV FLUIDS TO 100CC/HR AND TO CALL WITH RESULTS OF NA AND BP AND URINE OSMOLALITY.
[2019-05-16 20:00] VITALS: BP 126/63
--- NOTE | 2019-05-16 22:20 | NUR ---
HELPED PATIENT UP TO BATHROOM AND PATIENT VOIDED 80ML PT. RETURNED TO BED AND BLADDER SCANNED PER ORDER AND RESULTED 482ML. DR. DRISCOLL NOTIFIED. STRAIGHT CATHED PER ORDER PER POLICY/PROCEDURE CERTIFIED MASTER SAFE TECHNICIAN. PER ORDER. URINE CLEAR YELLOW. PATIENT TOLERATED WELL.
[2019-05-16 23:30] LABS: ALBUMIN 3.3 gm/dl (3.1-4.5); ALKALINE PHOSPHATASE 96 U/L (45-117); BUN 11 mg/dl (7-24); CHLORIDE 85 mmol/L (98-107); CREATININE 1.04 mg/dL (0.55-1.02); POTASSIUM 4.5 mmol/L (3.5-5.1); SGOT/AST 41 IU/L (3-35); SGPT/ALT 32 U/L (12-78); TOTAL PROTEIN 5.8 gm/dL (6.4-8.2)
[2019-05-16 23:36] LABS: SODIUM 118 mmol/L (136-145)
--- NOTE | 2019-05-16 23:41 | NUR ---
CALLED DR. MARTINEZ AND NOTIFIED HER OF NA, URINE OSMOLALITY AND BP. REPEAT SERUM NA AT 0300 IF NA IS GREATER THAN 120 CALL AND NOTIFY HER. SAID SHE IS "OKAY NOT CALLING WITH NA AT 3AM UNLESS IT IS OVER 120".
[2019-05-17] VITALS: BP 141/64
--- NOTE | 2019-05-17 00:56 | NUR ---
24 HR chart check completed.
--- NOTE | 2019-05-17 01:38 | NUR ---
ativan given per order for anxiety and wanting to go to sleep. see mar.
--- NOTE | 2019-05-17 02:30 | NUR ---
ATIVAN EFFECTIVE PATIENT SLEEPING.
--- NOTE | 2019-05-17 03:25 | NUR ---
NA 118 DR. MARTINEZ DID NOT WANT CALLED UNLESS NA WAS OVER 120. WILL NOTIFY IN AM.
--- NOTE | 2019-05-17 05:47 | NUR ---
C/O NAUSEA ZOFRAN GIVEN PER ORDER. SEE MAR
[2019-05-17 06:16] LABS: HEMATOCRIT 33.7 % (37.0-47.0); HEMOGLOBIN 11.6 g/dl (12.0-16.0); LYMPH # 0.7 10*3/uL (1.3-4.4); LYMPH % 11.8 % (27.0-41.0); MEAN CELL VOLUME 82.4 fl (81.0-99.0); MEAN CORPUSCULAR HGB 28.4 pg (27.0-31.0); MEAN CORPUSCULAR HGB CONC 34.4 g/dl (33.0-37.0); MEAN PLATELET VOLUME 10.4 fl (9.6-12.3); MONO # 0.3 10*3/uL (0.1-1.0); NEUT # 4.8 10*3/uL (2.3-7.9); NEUT % 82.7 % (47.0-73.0); PLATELET COUNT AUTOMATED 249 10*3/uL (130-400); RED BLOOD COUNT 4.09 10*6/uL (4.10-5.10); RED CELL DISTRI WIDTH 12.9 % (0-14.5); WHITE BLOOD COUNT 5.8 10*3/uL (4.8-10.8)
[2019-05-17 06:26] LABS: ALBUMIN 3.5 gm/dl (3.1-4.5); BUN 11 mg/dl (7-24); CHLORIDE 86 mmol/L (98-107); POTASSIUM 4.2 mmol/L (3.5-5.1); SGOT/AST 44 IU/L (3-35); SGPT/ALT 35 U/L (12-78)
[2019-05-17 06:37] LABS: ALKALINE PHOSPHATASE 95 U/L (45-117); PHOSPHOROUS 2.5 mg/dL (2.5-4.9); THYROID STIM HORMONE (HS) 0.578 uIU/ml (0.358-4.75)
--- NOTE | 2019-05-17 06:41 | NUR ---
DR. MARTINEZ CALLED IN AND NOTIFIED OF NA LEVEL. ORDER RECEIVED TO INCREASE HER IV FLUIDS TO 100ML/HR AND TO CALL WITH LAB FROM THIS AM.
--- NOTE | 2019-05-17 06:46 | NUR ---
INCREASED IV TO 100ML/HR
[2019-05-17 06:48] LABS: SODIUM 119 mmol/L (136-145)
--- NOTE | 2019-05-17 06:48 | NUR ---
CALLED AND NOTIFIED DR. MARTINEZ OF NA 119 INCREASE IV FLUID TO 100ML/HR AND TO REPEAT NA IN 4 HOURS AROUND 11AM.
--- NOTE | 2019-05-17 09:00 | NUR ---
Physical Plant Manager in to talk to patient. Patient states lives at home with . There are 20 steps in the home. Physician: bryson lopez [facility] Home health services: none Patient's level of ADLs: INDEPENDENT Patient has working utilities: all working DME: walker,cane, shower chair nebulizer Follow-up physician's appointment after d/c: will be made by hospitalist nurse director upon discharge Does patient want to access PORTAL?: no Discharge plan discussed with patient, she lives at home with , she is independent in adls and ambulation with her walker or cane, she states she will return home with and denies any home needs, discussed with her [facility] and educated her on the services they provide and setting up services when she was discharged, she stated he was familiar with home health services and didn't feel she needed any at this time, case management will follow. ZOILA MANN
--- NOTE | 2019-05-17 09:00 | NUR ---
Internet Marketing Coordinator in to talk to patient. Patient states lives at home with . There are 20 steps in the home. Physician: bryson lopez [facility] Home health services: [facility] Patient's level of ADLs: MINIMAL ASSIST Patient has working utilities: all working DME: walker, cane, shower chair and nebulzier Follow-up physician's appointment after d/c: will be made by hospitalist nurse director upon discharge Does patient want to access PORTAL?: no Discharge plan discussed with patient, she states she lives at home with , she is independent in adls and ambulation with her cane or walker, she states she has [facility] currently and would like them to continue when she is discharged, case management will notify [facility] for when patient is medically stable for discharge, no other needs at this time. ZOILA MANN
[2019-05-17 11:21] LABS: BUN 10 mg/dl (7-24); CHLORIDE 85 mmol/L (98-107); CREATININE 0.92 mg/dL (0.55-1.02); POTASSIUM 4.1 mmol/L (3.5-5.1)
[2019-05-17 11:24] LABS: SODIUM 119 mmol/L (136-145)
[2019-05-17 12:00] VITALS: BP 160/70
--- NOTE | 2019-05-17 12:15 | NUR ---
PT. ATTEMPTED TO VOID W/O SUCCESS. BLADDER SCANNED FOR 214MLS. STRAIGHT CATHED USING STERILE TECHNIQUE FOR 400 MLS. CLOUDY DARK YELLOW URINE. PT, TOLERATED WELL. BURAK CARE GIVEN. MITESH LEECC
[2019-05-17 15:17] LABS: BUN 11 mg/dl (7-24); CHLORIDE 86 mmol/L (98-107); CREATININE 1.05 mg/dL (0.55-1.02)
[2019-05-17 15:22] LABS: SODIUM 117 mmol/L (136-145)
[2019-05-17 16:00] VITALS: BP 139/62
[2019-05-17 19:30] LABS: BUN 11 mg/dl (7-24); CHLORIDE 87 mmol/L (98-107); CREATININE 0.99 mg/dL (0.55-1.02); POTASSIUM 4.5 mmol/L (3.5-5.1)
--- NOTE | 2019-05-17 19:40 | NUR ---
IN PT ROOM AT THIS TIME TO DO ASSESSMENT. PT IS RESTING IN HER BED. HER RIGHT HAND IS BLEEDING DUE TO LAB DRAWING, SO I PLACED A DRESSING ON HER HAND. PT HAS NO COMPLAINTS AT THIS TIME AND TOOK HER MEDICATIONS FOR HER CANCER THAT ARE LOCKED AWAY IN THE WALL. THE CALL LIGHT IS WITHIN REACH, WILL CONTINUE TO MONITOR THE PATIENT
[2019-05-17 19:41] LABS: BILIRUBIN NEGATIVE (NEGATIVE); BLOOD 3+ (NEGATIVE); CLARITY CLEAR (CLEAR); COLOR YELLOW (YELLOW); GLUCOSE TRACE (NEGATIVE); KETONE NEGATIVE (NEGATIVE); LEUKO ESTERASE 2+ (NEGATIVE); NITRITE NEGATIVE (NEGATIVE); UROBILINOGEN 0.2 E.U./dl (0.2-1.0)
[2019-05-17 19:45] LABS: SODIUM 118 mmol/L (136-145)
[2019-05-17 19:48] LABS: BACTERIA 2+; WBC 51-100 wbc/hpf (0-5)
--- NOTE | 2019-05-17 19:49 | NUR ---
DR COTTRELL NOTIFIED OF CRITICAL LAB. STATES NOTIFY DR MARTINEZ
--- NOTE | 2019-05-17 19:54 | NUR ---
CALLED DR MARTINEZ ON PT LAB RESULTS THAT ARE BACK. SHE IS GOING TO CALL PHARMACY AND THEN CALL ME BACK WITH WHAT SHE WOULD LIKE ME TO DO REGARDING PT LAB LEVELS
[2019-05-17 20:00] VITALS: BP 135/54
--- NOTE | 2019-05-17 20:15 | NUR ---
DR MARTINEZ ON THE PHONE AND STATES THAT SHE WANTS THE PT TO BE ON THE 3% AT 25ML/HR CONTINUOUSLY AND HER SODIUM CHECKED EVERY 3 HOURS. SHE STATES THAT A PICC LINE SHOULD BE PLACED FOR THE FLUIDS THAT SHE NEEDS TO HAVE RUNNING, SO DR COTTRELL IS UP TO DATE ON THIS, AND WHEN THERE IS SOMEONE AVAILABLE THAT WILL BE PLACED. SHE WOULD LIKE TO BE CALLED ONCE THE OSMOLALITY RESULTS ARE BACK.
--- NOTE | 2019-05-17 21:00 | NUR ---
CALLED DR MARTINEZ TO INFORM HER OF THE URINE ISMOLALITY LEVEL AND TO LET HER KNOW THAT THE CENTRAL LINE IS BEING PLACED AT THIS TIME SHE STATES 'OK'
--- NOTE | 2019-05-17 21:46 | NUR ---
PT STATES THAT SHE IS IN NO PAIN AFTER THE CENTRAL LINE WAS PLACED, SHE IS JUST FEELING A BIT SICK TO HER STOMACH. PRN ZOFRAN IV IS GIVEN AT THIS TIME. WAITING FOR VERIFICATION OF PLACEMENT BEFORE SWITCHING OVER FLUIDS TO THE IJ SITE
[2019-05-17 21:48] LABS: BUN 11 mg/dl (7-24); CHLORIDE 86 mmol/L (98-107); CREATININE 0.89 mg/dL (0.55-1.02); POTASSIUM 4.2 mmol/L (3.5-5.1)
[2019-05-17 21:55] LABS: SODIUM 119 mmol/L (136-145)
--- NOTE | 2019-05-17 22:03 | NUR ---
DR COTTRELL CALLED AND NOTIFIED OF SODIUM LAB RESULT
--- NOTE | 2019-05-17 22:27 | NUR ---
DR COTTRELL CALLED TO STATE THAT THE IJ LINE IS PLACED CORRECTLY AND IS ABLE TO BE USED. PRESSER AND SHAPER KNITTED GOODS THE 3%NACL TO THE RIGHT IJ AT THIS TIME AFTER FLUSHING ALL 3 LUMENS.
--- NOTE | 2019-05-17 22:36 | NUR ---
IN PT ROOM AND SHE STATES THAT HER STOMACH FEELS BETTER AFTER TAKING THE ZOFRAN. HOOKED UP HER FLUIDS TO THE IJ SITE AT THIS TIME.
[2019-05-18] VITALS: BP 138/56
--- NOTE | 2019-05-18 00:06 | NUR ---
POST VOID RESIDULE SCAN WAS 34CC
[2019-05-18 00:24] LABS: BUN 11 mg/dl (7-24); CHLORIDE 90 mmol/L (98-107); POTASSIUM 4.4 mmol/L (3.5-5.1); SODIUM 121 mmol/L (136-145)
--- NOTE | 2019-05-18 00:33 | NUR ---
SPOKE WITH DR MARTINEZ ABOUT PT POTASSIUM LEVELS. SHE SAID TO DECREASE THE FLUIDS FROM 25 TO 20
--- NOTE | 2019-05-18 01:23 | NUR ---
CALLED DR COTTRELL PER PT REQUEST OF NEEDING SOMETHING TO HELP HER SLEEP. ADDED ORDER PER HIS WISHES. ALSO UPDATED HIM ON THE LAST SODIUM LAB LEVEL AND TOLD HIM PER DR MARTINEZ WE BUMPED DOWN HER FLUIDS TO 20
--- NOTE | 2019-05-18 01:45 | NUR ---
PT GIVEN A PRN PO RESTORIL AT THIS TIME TO HELP HER SLEEP PER HER REQUEST. CALL LIGHT IS WITHIN REACH, WILL CONTINUE TO MONITOR
[2019-05-18 03:12] LABS: BUN 10 mg/dl (7-24); CHLORIDE 89 mmol/L (98-107); CREATININE 0.91 mg/dL (0.55-1.02); POTASSIUM 4.3 mmol/L (3.5-5.1); SODIUM 125 mmol/L (136-145)
--- NOTE | 2019-05-18 03:16 | NUR ---
CALLED DR COTTRELL TO INFORM HIM OF PT SODIUM LEVEL AT 0250 AND HE STATES TO CALL DR MARTINEZ. I CALLED HER PHONE AND NO ANSWER, WILL TRY BACK
--- NOTE | 2019-05-18 03:21 | NUR ---
CALLED DR COTTRELL TO LET HIM KNOW I WAS NOT ABLE TO GET AHOLD OF DR MARTINEZ, HE SAID TO HOLD HER 3% UNTIL I HEAR FROM DR MARTINEZ. GOING INTO ROOM NOT TO STOP THE FLUIDS
--- NOTE | 2019-05-18 03:31 | NUR ---
SPOKE TO DR MARTINEZ AND SHE STATES THE TAKE THE PATIENT OFF OF THE 3% SODIUM AT THIS TIME AND TO REPEAT LAB IN [address] COTTRELL NOTIFIED OF THIS TOO
--- NOTE | 2019-05-18 03:35 | NUR ---
24 HR chart check completed.
[2019-05-18 06:14] LABS: BUN 11 mg/dl (7-24); CHLORIDE 92 mmol/L (98-107); CREATININE 0.84 mg/dL (0.55-1.02); POTASSIUM 4.3 mmol/L (3.5-5.1); SODIUM 125 mmol/L (136-145)
--- NOTE | 2019-05-18 06:26 | NUR ---
CALLED DR COTTRELL TO INFORM HIM OF THE LATEST SODIUM LEVEL AND HE STATES THAT IS GOOD
[2019-05-18 08:00] VITALS: BP 118/58
[2019-05-18 08:08] LABS: COMPLEMENT C4 001834 31 mg/dL (14-44)
--- NOTE | 2019-05-18 09:00 | NUR ---
case management visits with patient, she states she will return home when medically stable and continue with [facility], no other home needs at this time
--- NOTE | 2019-05-18 09:00 | NUR ---
case management visits with patient, she will return home when medically stable and denies any home needs
[2019-05-18 12:00] VITALS: BP 112/50
[2019-05-18 12:07] LABS: HEPATITIS B SURFACE AG Negative (Negative); HEPATITIS C VIRUS ANTIBODY <0.1 s/co (0.0-0.9)
[2019-05-18 16:00] VITALS: BP 105/58
--- NOTE | 2019-05-18 16:00 | NUR ---
PT DID NOT WANT TO BE BLADDER SCANNED. SHE FELT THOUGH SHE HAD EMPTIED HER BLADDER. WILL CONTINUE TO MONITOR.
[2019-05-18 20:00] VITALS: BP 115/68
--- NOTE | 2019-05-18 21:30 | NUR ---
DR. MARTINEZ CALLED ABOUT SODIUM LEVEL AND WANTS 3% NACL RUNNING AND WANTS SODIUM LEVEL DRAWN EVERY 3 HOURS AND NOTIFY HER OF RESULTS.
--- NOTE | 2019-05-18 22:26 | NUR ---
PATIENT REFUSED TO HAVE BLADDER SCANNED AT THIS TIME. STATED SHE HAS BEEN GOING ON HER OWN AND DOESN'T NEED IT. WILL CONTINUE TO MONITOR.
[2019-05-19] VITALS: BP 123/70
--- NOTE | 2019-05-19 01:10 | NUR ---
DR. MARTINEZ NOTIFIED OF SODIUM LEVEL OF 124. NEW ORDER TO INCREASE 3% NACL TO 30CC/HR. REDRAW NEXT SODIUM LEVEL AT 0330.
--- NOTE | 2019-05-19 03:54 | NUR ---
DR. MARTINEZ NOTIFIED THAT SODIUM LEVEL IS 129. NEW ORDER TO STOP THE SALINE.
[2019-05-19 06:40] LABS: BUN 11 mg/dl (7-24); CHLORIDE 95 mmol/L (98-107); POTASSIUM 4.2 mmol/L (3.5-5.1); SODIUM 128 mmol/L (136-145)
--- NOTE | 2019-05-19 06:50 | NUR ---
DR. MARTINEZ NOTIFIED PATIENT'S SODIUM LEVEL IS 128. NEW ORDER TO OBTAIN SODIUM LEVEL EVERY 4 HOURS AND MAY HAVE LIBERAL FLUUID INTAKE.
[2019-05-19 06:58] LABS: BASO % 0.1 % (0.0-1.0); HEMATOCRIT 33.2 % (37.0-47.0); HEMOGLOBIN 11.5 g/dl (12.0-16.0); LYMPH # 0.6 10*3/uL (1.3-4.4); LYMPH % 4.1 % (27.0-41.0); MEAN CELL VOLUME 82.8 fl (81.0-99.0); MEAN CORPUSCULAR HGB 28.7 pg (27.0-31.0); MEAN CORPUSCULAR HGB CONC 34.6 g/dl (33.0-37.0); MEAN PLATELET VOLUME 10.7 fl (9.6-12.3); MONO # 0.9 10*3/uL (0.1-1.0); MONO % 6.2 % (3.0-9.0); NEUT # 12.7 10*3/uL (2.3-7.9); PLATELET COUNT AUTOMATED 239 10*3/uL (130-400); RED BLOOD COUNT 4.01 10*6/uL (4.10-5.10); RED CELL DISTRI WIDTH 13.7 % (0-14.5); WHITE BLOOD COUNT 14.2 10*3/uL (4.8-10.8)
[2019-05-19 07:30] VITALS: BP 122/68
--- NOTE | 2019-05-19 07:30 | NUR ---
PT ASSESSMENT COMPLETED AND DOCUMENTED. PT IS SOB WITH EXERTION. PT DENIES SOB AT REST OR CHEST PAINS. IJ PLACED IN RT NECK APPEARS TO BE INTACT WITH DRESSING. PT STATES SHE HAS BEEN VOIDING AND LAST VOID WAS 5AM, TREMAINE IN COLOR AND WAS CONCERNED. SHE IS IN A PLEASANT MOOD AND STATES SHE FEELS BETTER TODAY. KACI SPDEANGELOCC
[2019-05-19 08:08] LABS: ATYPICAL PANCA 1:20 titer (Neg:<1:20); CYTOPLASMIC (C-ANCA) <1:20 titer (Neg:<1:20)
--- NOTE | 2019-05-19 09:00 | NUR ---
case management visits with patient, educated her that a respresentative from [facility] called this am and stated that they no longer accept patient's insurance and will not be able to visit her at home, gave her a list of other companied that do accept her insurance and she chose [facility], case management will send the referral to [facility] for when patient is medically stable
[2019-05-19 09:16] LABS: CLARITY CLOUDY (CLEAR); COLOR YELLOW (YELLOW)
[2019-05-19 09:17] LABS: BILIRUBIN NEGATIVE (NEGATIVE); BLOOD 3+ (NEGATIVE); GLUCOSE NEGATIVE (NEGATIVE); KETONE NEGATIVE (NEGATIVE); LEUKO ESTERASE 3+ (NEGATIVE); NITRITE NEGATIVE (NEGATIVE); PH 6.5 (5.0-9.0); UROBILINOGEN 0.2 E.U./dl (0.2-1.0)
[2019-05-19 09:22] LABS: BACTERIA 4+; RBC TNTC rbc/hpf (0-2); WBC TNTC wbc/hpf (0-5)
--- NOTE | 2019-05-19 10:00 | NUR ---
PT PERFORMED DAILY HYGIENE WITH LITTLE TO NO ASSISTANCE. SOB WITH ACTIVITY. DENIES CHEST PAIN OR SOB AT REST. PT IN ROOM SITTING ON BEDSIDE, SELF TURNING KACI POLO
--- NOTE | 2019-05-19 10:30 | NUR ---
Occupational Therapy evaluation completed on 4 with full eval to follow. Precautions include imp balance in standing, impaired energy level,cane use,low complexity, central line right neck. Recommend OT per pOC and home w/ ex- and home health OT,PT,SN. Thank you. Niharika Erwin OTr/L
--- NOTE | 2019-05-19 10:30 | NUR ---
PHYSICAL THERAPY Deborah completed pt low level of complexity [id number] recomend discharge home with and follow up home health. PT to follow next 2 to 3 sessions for increased amb, consistency with balance/safety, strengthening and stair training Minerva Westbrook PT
[2019-05-19 11:08] LABS: GLOMERULAR BASEMENT AB 082719 2 units (0-20)
[2019-05-19 12:15] VITALS: BP 136/56
--- NOTE | 2019-05-19 12:15 | NUR ---
PT UP WALKING FLOOR WITH ASSISTIVE DEVICE, STEADY GAIT ALONG SIDE . EXPERIENCE AT TIME SOME DYSPNEA, DENIES CHEST PAIN. KACI LEECC
--- NOTE | 2019-05-19 12:50 | NUR ---
PT STATES SHE DOES NOT FEEL NEED TO VOID AND IS EMPTYING BLADDER WITHOUT DIFFICULTY. WISHES TO NOT BE BLADDER SCANNED AT THIS TIME.
[2019-05-19 16:00] VITALS: BP 115/68
--- NOTE | 2019-05-19 19:30 | NUR ---
PT RESTING IN BED. VOICES NO CONCERNS AT THIS TIME. RESPS EASY AND NON LABORED. NO S/S OF DISTRESS NOTED. VSS. CALL LIGHT WITHIN REACH. WHITE BOARD UPDATED.
[2019-05-19 20:00] VITALS: BP 125/64
--- NOTE | 2019-05-19 22:36 | NUR ---
24 HR chart check completed.
[2019-05-20] VITALS: BP 132/78
[2019-05-20 06:21] LABS: HEMATOCRIT 30.2 % (37.0-47.0); HEMOGLOBIN 10.2 g/dl (12.0-16.0); MEAN CELL VOLUME 85.1 fl (81.0-99.0); MEAN CORPUSCULAR HGB 28.7 pg (27.0-31.0); MEAN CORPUSCULAR HGB CONC 33.8 g/dl (33.0-37.0); MEAN PLATELET VOLUME 10.5 fl (9.6-12.3); PLATELET COUNT AUTOMATED 225 10*3/uL (130-400); RED BLOOD COUNT 3.55 10*6/uL (4.10-5.10); RED CELL DISTRI WIDTH 14.1 % (0-14.5); WHITE BLOOD COUNT 14.1 10*3/uL (4.8-10.8)
[2019-05-20 06:45] LABS: ALBUMIN 3.1 gm/dl (3.1-4.5); BUN 12 mg/dl (7-24); CHLORIDE 99 mmol/L (98-107); CREATININE 0.74 mg/dL (0.55-1.02); SODIUM 132 mmol/L (136-145)
[2019-05-20 06:49] LABS: ALKALINE PHOSPHATASE 74 U/L (45-117); SGOT/AST 23 IU/L (3-35); SGPT/ALT 39 U/L (12-78); TOTAL PROTEIN 5.3 gm/dL (6.4-8.2)
[2019-05-20 07:11] LABS: BURR CELLS FEW; OVALOCYTES FEW; PLATELET SUFFICIENCY NORMAL (NORMAL); TOTAL CELLS COUNTED 100 #CELLS
[2019-05-20 08:00] VITALS: BP 144/60
--- NOTE | 2019-05-20 11:09 | NUR ---
PHYSICAL THERAPY Patient supine in bed at time of arrival. Patient identified by name/ and provided informed consent for treatment this date. Performance of bed mobility- patient transitions supine->sit requiring S/CA. STS transfer completed EOB->cane requiring supervision, followed by gait training with use of straight cane, CGA and assistance for manipulation of IV pole; over level surfaces, incorporating 90 and 180 degree directional changes for ~100'x2 in order to improve balance, strength and safety. Patient requiring occasional cues for safety with cane sequence and environmental awareness to decrease fall risk. Standing balance activity completed with occasional 1xUE support- reaching in various planes/elevations and outside of LC in order to improve balance/righting reactions, endurance, strength and safety. CGA-close SBA provided throughout with no LOB noted. Patient was educated on B LE ther-ex to perform throughout the day while sitting/supine in bed. Patient sitting EOB with call light and tray table within reach at session end. Patient voiced no concerns and/or complaints this date. Yaneli Soria, RE DYE HAND
[2019-05-20 12:00] VITALS: BP 137/61
[2019-05-20 16:00] VITALS: BP 111/53
--- NOTE | 2019-05-20 19:30 | NUR ---
PT RESTING IN BED. VOICES NO CONCERNS AT THIS TIME. RESPS EASY AND NON LABORED. NO S/S OF DISTRESS NOTED. VSS. WHITE BOARD UPDATED. CALL LIGHT WITHIN REACH.
[2019-05-20 20:00] VITALS: BP 103/51
--- NOTE | 2019-05-20 21:45 | NUR ---
SPOKE WITH DR MARTINEZ WHO STATED TO MAKE SURE 3%NS WAS D/C ON PTS EMAR.WILL D/C AT THIS TIME
[2019-05-21] VITALS: BP 135/59
--- NOTE | 2019-05-21 02:37 | NUR ---
Patient sleeping. Respirations relaxed and easy. Siderails up . [place] on. NO S/S OF DISTRESS NOTED. CALL LIGHT WITHIN REACH. HISSOM,MARY
[2019-05-21 06:24] LABS: BASO % 0.1 % (0.0-1.0); EOS % 0.2 % (1.0-4.0); HEMATOCRIT 30.3 % (37.0-47.0); LYMPH % 15.4 % (27.0-41.0); MEAN CELL VOLUME 86.6 fl (81.0-99.0); MEAN CORPUSCULAR HGB 28.6 pg (27.0-31.0); MEAN PLATELET VOLUME 10.4 fl (9.6-12.3); MONO # 1.2 10*3/uL (0.1-1.0); MONO % 9.5 % (3.0-9.0); NEUT # 9.6 10*3/uL (2.3-7.9); NEUT % 74.5 % (47.0-73.0); PLATELET COUNT AUTOMATED 233 10*3/uL (130-400); RED CELL DISTRI WIDTH 14.6 % (0-14.5); WHITE BLOOD COUNT 12.9 10*3/uL (4.8-10.8)
[2019-05-21 06:31] LABS: CHLORIDE 100 mmol/L (98-107); POTASSIUM 3.8 mmol/L (3.5-5.1); SODIUM 133 mmol/L (136-145)
[2019-05-21 06:39] LABS: ALBUMIN 3.3 gm/dl (3.1-4.5); ALKALINE PHOSPHATASE 74 U/L (45-117); BUN 20 mg/dl (7-24); CREATININE 0.65 mg/dL (0.55-1.02); SGOT/AST 23 IU/L (3-35); SGPT/ALT 50 U/L (12-78); TOTAL PROTEIN 5.5 gm/dL (6.4-8.2)
[2019-05-21 08:00] VITALS: BP 138/69
--- NOTE | 2019-05-21 10:00 | NUR ---
PATIENT AWAKE, ALERT, & ORIENTED. LUNGS CLEAR T/O. DENIES SOB @ REST. ABD SOFT & NONTENDER. NO EDEMA NOTED. CALL LIGHT IN REACH.
[2019-05-21 12:00] VITALS: BP 131/53
[2019-05-21 16:00] VITALS: BP 116/54
--- NOTE | 2019-05-21 16:00 | NUR ---
PT AWAKE, SITTING IN CHAIR VISITING WITH . DENIES ANY NEEDS AT THIS TIME. CALL LIGHT WITHIN REACH.
--- NOTE | 2019-05-21 19:00 | NUR ---
ASSUMED CARE FOR THIS PT AT THIS TIME. PT C/O CONSTIPATION. REQUESTING MIRALAX IN AM. DENIES PAIN. CALL LIGHT IN REACH.
[2019-05-21 20:00] VITALS: BP 142/55
--- NOTE | 2019-05-21 21:56 | NUR ---
DR. MARTINEZ PHONED W/ORDER TO ADMINISTER UREA 15GM NOW AND CHANGE ORDER TO BID.
--- NOTE | 2019-05-21 22:23 | NUR ---
PT MEDICATED W/ATIVAN PER REQUEST TO HELP PROMOTE SLEEP. CALL LIGHT IN REACH.
[2019-05-22] VITALS: BP 154/64
--- NOTE | 2019-05-22 01:04 | NUR ---
24 HR chart check completed.
[2019-05-22 07:22] VITALS: BP 110/82
[2019-05-22] MEDS ORDERED: URE-NA15 GM PO ×2 (07:24→09:26)
[2019-05-22 08:00] LABS: ALBUMIN 3.2 gm/dl (3.1-4.5); ALKALINE PHOSPHATASE 74 U/L (45-117); BUN 25 mg/dl (7-24); CHLORIDE 100 mmol/L (98-107); CREATININE 0.64 mg/dL (0.55-1.02); POTASSIUM 3.2 mmol/L (3.5-5.1); SGOT/AST 33 IU/L (3-35); SGPT/ALT 70 U/L (12-78); SODIUM 135 mmol/L (136-145); TOTAL PROTEIN 5.5 gm/dL (6.4-8.2)
--- NOTE | 2019-05-22 08:00 | NUR ---
PT. IS UP IN BED RECIEVING BREATHING TREATMENT, DENIES ANY PAIN OR DISCOMFORT AT THIS TIME. SPNRCC KRYS SY
--- NOTE | 2019-05-22 09:00 | NUR ---
case management visits with patient, she states she will return home when medically stable and have [facility], case management will send referral to [facility] when patient is medically stable for discharge
--- NOTE | 2019-05-22 09:00 | NUR ---
PHYSICAL THERAPY Patient seen this am 1;1 for therapy visit and was sitting up on EOB following OT physical therapy assistant visi. Patient identified by name / and was very pleasant this morning voicing no new c/o's. Patient transfers SBA x 1 and ambulates with use of st cane, SBA, > 125'x 1, demonstrating slow, steady lex and no LOB this session. Patient is cautious during all 90/180 turns and returned to bedside chair with mild fatigue. Patient remained in chair voicing no new c/o's with call light, tray table and telephone. Will continue per POC as tolerated, total treatment time 14 minutes. Doron Mcdonald, FASTENER TECHNOLOGIST
--- NOTE | 2019-05-22 09:04 | NUR ---
OT NOTE PATIENT SEEN 1:1 OT THIS DATE. PATIENT COMPLETED 15 MINUTES OT THIS DATE. COMPLETED ENERGY CONSERVATION/WORK SIMPLIFICATION EDUCATION DURING ADL TASK WITH GOOD UNDERSTANDING AND HAND-OUT PROVIDED. PATIENT COMPLETED FUNCTIONAL AMBULATION USE CANE TO BATHROOM TO AND FROM BED SBA WITH NO LOSS BALANCE AND MIN VERBAL CUES PROPER BREATHING TECHNIQUES AND NO SOB NOTED. PATIENT COMPLETED TOILET TRANSFER SBA WITH EDUCATION PROPER USE GRAB BAR FOR SAFETY AND WORK SIMPLIFICATION. PATIENT IN CARE OF HOME AND FAMILY LIVING PROFESSOR END OF OT SESSION. DEVEN ANDUJAR/[employer]
[2019-05-22] MEDS ORDERED: IMDUR SA30 MG PO (09:24)
[2019-05-22] MEDS ORDERED: ZESTRIL,PRINIVIL5 MG PO (09:24)
[2019-05-22] MEDS ORDERED: AUGMENTIN 875875 MG PO (09:33)
--- NOTE | 2019-05-22 10:16 | NUR ---
PT. IS UP IN CHAIR, DENIES ANY PAIN OR DISCOMFORT AT THIS TIME, PT WAS INSTRUCTED ON PALN OF CARE REQUARDING DISCHARGE. SPNRCC KRYS SY .
--- NOTE | 2019-05-22 11:14 | NUR ---
PHARMACY CALLED AND GOING TO SEND UP PT HOME MEDICATION. RIGHT IJ BEING REMOVED AT THIS TIME. TUBE TEST TECHNICIAN IS REMOVED. PT SIGNED ALL HER PAPERS AND HAS NO QUESTIONS AT THIS TIME. WAITING FOR TO COME PICK HER UP
--- NOTE | 2019-05-22 11:30 | NUR ---
Discharge instructions reviewed with patient/family. Patient receptive and verbalizes understanding. Follow-up care arranged. Written instructions given to patient/family. EXPLAINED DAILY WEIGHTS AND FLUID RESTRICTIONS WITH PT. GIVEN CHART TO APPOXIMATE FLUIDS, MULTI LUMEN SITE ASSYMPTOMATIC, SPNRCC KRYS SY
--- NOTE | 2019-05-22 11:46 | NUR ---
[facility] AND IS LEAVING THE FLOOR AT THIS TIME. PT WITH ALL HER AND HAS ALL OF HER BELONGINGS
--- NOTE | 2019-05-22 14:18 | NUR ---
[facility] notified that patient was discharged to home today
--- NOTE | 2019-05-23 07:29 | NUR ---
PHYSICAL THERAPY CO-SIGN I approve of the Physical Therapy notes written above. Minerva Westbrook PT
--- NOTE | 2019-05-23 08:25 | NUR ---
OCCUPATIONAL THERAPY CO-SIGN I approve of the Occupational Therapy notes written above. Monserrat Marie, OTR/L
== END 2019-05-22 11:46 | disposition home health service (06) | DRG 206 ==
LOC: ED 13:02 → EDHOLD 14:32 → 4E 14:32
PROVIDERS: Family Medicine; Internal Medicine; Internal Medicine Nephrology; Nurse Practitioner Family; Registered Nurse; ADMIT Internal Medicine
PROC: B548ZZA Ultrasonography of Superior Vena Cava, Guidance (ICD-10-PCS; principal; 2019-05-17)
PROC: 02H633Z Insertion of Infusion Device into Right Atrium, Percutaneous Approach (ICD-10-PCS; principal; 2019-05-17)
DX: M94.0 Chondrocostal junction syndrome [Tietze] (principal); J44.1 Chronic obstructive pulmonary disease with (acute) exacerbation; E44.0 Moderate protein-calorie malnutrition; E87.1 Hypo-osmolality and hyponatremia; I50.32 Chronic diastolic (congestive) heart failure; C92.90 Myeloid leukemia, unspecified, not having achieved remission; N39.0 Urinary tract infection, site not specified; I25.10 Atherosclerotic heart disease of native coronary artery without angina pectoris; E78.2 Mixed hyperlipidemia; G62.9 Polyneuropathy, unspecified; N32.81 Overactive bladder; K21.9 Gastro-esophageal reflux disease without esophagitis; F41.9 Anxiety disorder, unspecified; F32.9 Major depressive disorder, single episode, unspecified; E87.8 Other disorders of electrolyte and fluid balance, not elsewhere classified; I11.0 Hypertensive heart disease with heart failure; R31.9 Hematuria, unspecified; R80.9 Proteinuria, unspecified; T39.395A Adverse effect of other nonsteroidal anti-inflammatory drugs [NSAID], initial encounter; E66.9 Obesity, unspecified; I95.9 Hypotension, unspecified; B96.89 Other specified bacterial agents as the cause of diseases classified elsewhere; Y92.89 Other specified places as the place of occurrence of the external cause; Z68.36 Body mass index [BMI] 36.0-36.9, adult; I25.2 Old myocardial infarction; Z91.09 Other allergy status, other than to drugs and biological substances; Z88.1 Allergy status to other antibiotic agents; Z88.2 Allergy status to sulfonamides; Z88.8 Allergy status to other drugs, medicaments and biological substances; Z91.048 Other nonmedicinal substance allergy status; Z90.49 Acquired absence of other specified parts of digestive tract; Z90.710 Acquired absence of both cervix and uterus; Z98.51 Tubal ligation status; Z87.891 Personal history of nicotine dependence; Z83.6 Family history of other diseases of the respiratory system; Z82.49 Family history of ischemic heart disease and other diseases of the circulatory system; Z79.82 Long term (current) use of aspirin; Z79.899 Other long term (current) drug therapy; Z85.3 Personal history of malignant neoplasm of breast

== ENCOUNTER → 2019-05-24 | Outpatient (CLI) | payer OTHER ==
[~2019-05-24] MED LIST changes: +URE-NA15 GM PO; +ZESTRIL,PRINIVIL5 MG PO
[2019-05-24 11:57] LABS: BUN 16 mg/dl (7-24); CHLORIDE 102 mmol/L (98-107); CREATININE 0.76 mg/dL (0.55-1.02); POTASSIUM 3.9 mmol/L (3.5-5.1); SODIUM 135 mmol/L (136-145)
== END ==
LOC: LAB 11:08
PROVIDERS: Internal Medicine Nephrology
DX: E87.1 Hypo-osmolality and hyponatremia (principal)

== ENCOUNTER → 2019-06-12 | Outpatient (CLI) | payer OTHER ==
[2019-06-12 14:33] LABS: BUN 6 mg/dl (7-24); CHLORIDE 103 mmol/L (98-107); CREATININE 0.81 mg/dL (0.55-1.02); POTASSIUM 4.1 mmol/L (3.5-5.1); SODIUM 137 mmol/L (136-145)
== END | disposition home or self-care (01) ==
LOC: LAB 12:51
PROVIDERS: Internal Medicine Nephrology
DX: I10 Essential (primary) hypertension (principal)

== ENCOUNTER → 2019-08-21 | Outpatient (CLI) | payer OTHER | END | disposition home or self-care (01) | LOC: RAD 16:04 | DX: M43.6 Torticollis (principal) ==

== ENCOUNTER → 2020-03-05 | Outpatient (CLI) | payer OTHER ==
[2020-03-05 09:54] LABS: BASO # 0.1 10*3/uL (0.0-0.1); BASO % 1.2 % (0.0-1.0); EOS # 0.4 10*3/uL (0.0-0.4); EOS % 4.2 % (1.0-4.0); HEMATOCRIT 39.7 % (37.0-47.0); LYMPH # 3.1 10*3/uL (1.3-4.4); LYMPH % 29.3 % (27.0-41.0); MEAN CELL VOLUME 86.7 fl (81.0-99.0); MEAN CORPUSCULAR HGB 28.4 pg (27.0-31.0); MEAN CORPUSCULAR HGB CONC 32.7 g/dl (33.0-37.0); MEAN PLATELET VOLUME 10.7 fl (9.6-12.3); MONO % 9.2 % (3.0-9.0); NEUT # 5.9 10*3/uL (2.3-7.9); NEUT % 55.8 % (47.0-73.0); PLATELET COUNT AUTOMATED 237 10*3/uL (130-400); RED BLOOD COUNT 4.58 10*6/uL (4.10-5.10); RED CELL DISTRI WIDTH 13.6 % (0-14.5); WHITE BLOOD COUNT 10.5 10*3/uL (4.8-10.8)
[2020-03-05 10:14] LABS: ALBUMIN 3.8 gm/dl (3.1-4.5); BUN 8 mg/dl (7-24); CHLORIDE 101 mmol/L (98-107); CHOLESTEROL 137 mg/dL (<200); CREATININE 0.67 mg/dL (0.55-1.02); POTASSIUM 4.1 mmol/L (3.5-5.1); SGOT/AST 20 IU/L (3-35); SGPT/ALT 19 U/L (12-78); SODIUM 134 mmol/L (136-145); TOTAL PROTEIN 6.5 gm/dL (6.4-8.2); TRIGLYCERIDES 129 mg/dl (<150); VLDL CHOLESTEROL 26 mg/dL (6-40)
[2020-03-05 10:19] LABS: ALKALINE PHOSPHATASE 91 U/L (45-117); FREE T4 1.08 ng/dl (0.76-1.46); HDL CHOLESTEROL 78 mg/dl (40-60); LDL CHOLESTEROL 33 mg/dL (9-159)
[2020-03-05 10:51] LABS: VITAMIN D, 25-HYDROXY 33.1 ng/mL (30-100)
== END | disposition home or self-care (01) ==
LOC: LAB 09:27
PROVIDERS: ATTEND Internal Medicine Nephrology
DX: I10 Essential (primary) hypertension (principal); E55.9 Vitamin D deficiency, unspecified; E78.49 Other hyperlipidemia; F32.9 Major depressive disorder, single episode, unspecified

== ENCOUNTER → 2020-04-29 | Outpatient (CLI) | payer OTHER ==
[2020-04-29 16:01] LABS: BASO # 0.1 10*3/uL (0.0-0.1); BASO % 1.1 % (0.0-1.0); EOS # 0.4 10*3/uL (0.0-0.4); EOS % 3.3 % (1.0-4.0); HEMATOCRIT 37.4 % (37.0-47.0); LYMPH # 3.6 10*3/uL (1.3-4.4); LYMPH % 32.4 % (27.0-41.0); MEAN CELL VOLUME 89.5 fl (81.0-99.0); MEAN CORPUSCULAR HGB 28.5 pg (27.0-31.0); MEAN CORPUSCULAR HGB CONC 31.8 g/dl (33.0-37.0); MEAN PLATELET VOLUME 10.7 fl (9.6-12.3); MONO % 9.3 % (3.0-9.0); NEUT % 53.7 % (47.0-73.0); PLATELET COUNT AUTOMATED 233 10*3/uL (130-400); RED BLOOD COUNT 4.18 10*6/uL (4.10-5.10); RED CELL DISTRI WIDTH 13.3 % (0-14.5); WHITE BLOOD COUNT 11.1 10*3/uL (4.8-10.8)
[2020-04-29 16:15] LABS: ALBUMIN 3.5 gm/dl (3.1-4.5); ALKALINE PHOSPHATASE 107 U/L (45-117); BUN 7 mg/dl (7-24); CHLORIDE 103 mmol/L (98-107); CREATININE 0.66 mg/dL (0.55-1.02); LDH 242 U/L (84-246); POTASSIUM 4.2 mmol/L (3.5-5.1); SGOT/AST 20 IU/L (3-35); SGPT/ALT 21 U/L (12-78); SODIUM 136 mmol/L (136-145); TOTAL PROTEIN 6.1 gm/dL (6.4-8.2)
== END | disposition home or self-care (01) ==
LOC: LAB 15:43
PROVIDERS: ATTEND Internal Medicine Hematology & Oncology
DX: C92.90 Myeloid leukemia, unspecified, not having achieved remission (principal)

== ENCOUNTER 2020-10-29 04:16 | Emergency (ER) | payer OTHER ==
[~2020-10-29] VITALS: Ht 147.3 cm; Wt 66.7 kg
[2020-10-29 04:37] VITALS: BP 108/46
== END 2020-10-29 07:46 | disposition home or self-care (01) ==
LOC: ED 04:16
DX: S86.812A Strain of other muscle(s) and tendon(s) at lower leg level, left leg, initial encounter (principal); S70.02XA Contusion of left hip, initial encounter; I25.2 Old myocardial infarction; K21.9 Gastro-esophageal reflux disease without esophagitis; I25.10 Atherosclerotic heart disease of native coronary artery without angina pectoris; J44.9 Chronic obstructive pulmonary disease, unspecified; I50.9 Heart failure, unspecified; Z87.891 Personal history of nicotine dependence; Z98.51 Tubal ligation status; Z98.890 Other specified postprocedural states; Z86.73 Personal history of transient ischemic attack (TIA), and cerebral infarction without residual deficits; Z79.899 Other long term (current) drug therapy; Z88.6 Allergy status to analgesic agent; Z88.2 Allergy status to sulfonamides; Z88.1 Allergy status to other antibiotic agents; W01.0XXA Fall on same level from slipping, tripping and stumbling without subsequent striking against object, initial encounter; Y93.E1 Activity, personal bathing and showering; Y92.091 Bathroom in other non-institutional residence as the place of occurrence of the external cause; Y99.9 Unspecified external cause status

== ENCOUNTER → 2020-12-05 | Outpatient (CLI) | payer OTHER ==
[2020-12-05 13:58] LABS: BASO # 0.1 10*3/uL (0.0-0.1); BASO % 0.9 % (0.0-1.0); EOS # 0.4 10*3/uL (0.0-0.4); HEMATOCRIT 38.9 % (37.0-47.0); LYMPH # 3.4 10*3/uL (1.3-4.4); LYMPH % 36.3 % (27.0-41.0); MEAN CELL VOLUME 88.8 fl (81.0-99.0); MEAN CORPUSCULAR HGB 28.3 pg (27.0-31.0); MEAN CORPUSCULAR HGB CONC 31.9 g/dl (33.0-37.0); MEAN PLATELET VOLUME 10.3 fl (9.6-12.3); MONO # 0.7 10*3/uL (0.1-1.0); NEUT # 4.7 10*3/uL (2.3-7.9); NEUT % 50.7 % (47.0-73.0); PLATELET COUNT AUTOMATED 219 10*3/uL (130-400); RED BLOOD COUNT 4.38 10*6/uL (4.10-5.10); WHITE BLOOD COUNT 9.3 10*3/uL (4.8-10.8)
[2020-12-05 14:28] LABS: ALBUMIN 3.7 gm/dl (3.1-4.5); ALKALINE PHOSPHATASE 115 U/L (45-117); BUN 7 mg/dl (7-24); CHLORIDE 103 mmol/L (98-107); CREATININE 0.73 mg/dL (0.55-1.02); FREE T4 0.95 ng/dl (0.76-1.46); SGOT/AST 19 IU/L (3-35); SGPT/ALT 24 U/L (12-78); SODIUM 137 mmol/L (136-145); TOTAL PROTEIN 6.4 gm/dL (6.4-8.2)
== END | disposition home or self-care (01) ==
LOC: LAB 13:34
PROVIDERS: ATTEND Internal Medicine Nephrology
DX: C92.10 Chronic myeloid leukemia, BCR/ABL-positive, not having achieved remission (principal); R41.3 Other amnesia; I10 Essential (primary) hypertension

== ENCOUNTER → 2021-02-25 | Outpatient (CLI) | payer OTHER | END | disposition home or self-care (01) | LOC: COVID19 15:35 | PROVIDERS: ATTEND Internal Medicine | DX: Z11.52 Encounter for screening for COVID-19 (principal) ==

== ENCOUNTER → 2021-02-25 | Outpatient (CLI) | payer OTHER | END | disposition home or self-care (01) | LOC: RAD 16:38 | PROVIDERS: ATTEND Internal Medicine Nephrology | DX: J44.9 Chronic obstructive pulmonary disease, unspecified (principal); J20.9 Acute bronchitis, unspecified ==

== ENCOUNTER → 2021-04-14 | Outpatient (CLI) | payer OTHER | END | disposition home or self-care (01) | LOC: COVID19 16:06 | PROVIDERS: ATTEND Student in an Organized Health Care Education/Training Program | DX: U07.1 COVID-19 (principal) ==

== ENCOUNTER → 2021-11-25 | Outpatient (CLI) | payer OTHER ==
[~2021-11-25] MED LIST changes: +B12 ACTIVE1000 MCG PO; +FUROSEMIDE20 M1 PO; +MS CONTIN60 MG PO; +NITROGLYCERIN0.4 MG SL; +TRAZODONE100 MG PO
== END | disposition home or self-care (01) ==
LOC: LAB 13:28
PROVIDERS: ATTEND Internal Medicine Nephrology
DX: E55.9 Vitamin D deficiency, unspecified (principal); R79.89 Other specified abnormal findings of blood chemistry

== ENCOUNTER → 2022-04-22 | Outpatient (CLI) | payer OTHER | END | disposition home or self-care (01) | LOC: US 09:30 | PROVIDERS: ATTEND Internal Medicine Nephrology | DX: R60.0 Localized edema (principal); M79.605 Pain in left leg; M79.604 Pain in right leg; I10 Essential (primary) hypertension; R09.89 Other specified symptoms and signs involving the circulatory and respiratory systems ==

== ENCOUNTER → 2022-06-17 | Outpatient (CLI) | payer OTHER ==
[2022-06-17 14:18] LABS: BASO # 0.1 10*3/uL (0.0-0.1); BASO % 1.1 % (0.0-1.0); EOS # 0.1 10*3/uL (0.0-0.4); EOS % 1.8 % (1.0-4.0); HEMATOCRIT 40.2 % (37.0-47.0); LYMPH # 1.3 10*3/uL (1.3-4.4); LYMPH % 16.1 % (27.0-41.0); MEAN CELL VOLUME 88.2 fl (81.0-99.0); MEAN CORPUSCULAR HGB CONC 34.1 g/dl (33.0-37.0); MEAN PLATELET VOLUME 11.2 fl (9.6-12.3); MONO # 0.6 10*3/uL (0.1-1.0); NEUT # 5.7 10*3/uL (2.3-7.9); NEUT % 72.7 % (47.0-73.0); PLATELET COUNT AUTOMATED 199 10*3/uL (130-400); RED BLOOD COUNT 4.56 10*6/uL (4.10-5.10); WHITE BLOOD COUNT 7.9 10*3/uL (4.8-10.8)
[2022-06-17 16:58] LABS: ALKALINE PHOSPHATASE 105 U/L (46-116); BUN 6 mg/dl (9-23); CHLORIDE 102 mmol/L (98-107); FREE T4 1.11 ng/dl (0.89-1.76); POTASSIUM 3.5 mmol/L (3.4-5.1); SGPT/ALT 20 U/L (10-49); THYROID STIM HORMONE (HS) 0.527 uIU/ml (0.550-4.780); TOTAL PROTEIN 6.3 gm/dL (6.0-8.0)
== END | disposition home or self-care (01) ==
LOC: LAB 13:36
PROVIDERS: ATTEND Internal Medicine Nephrology
DX: G62.9 Polyneuropathy, unspecified (principal); R80.0 Isolated proteinuria; C92.10 Chronic myeloid leukemia, BCR/ABL-positive, not having achieved remission; R51.9 Headache, unspecified

== ENCOUNTER → 2022-06-19 | Outpatient (CLI) | payer OTHER | END | disposition home or self-care (01) | LOC: CT 01:04 | PROVIDERS: ATTEND Internal Medicine Nephrology | DX: C92.10 Chronic myeloid leukemia, BCR/ABL-positive, not having achieved remission (principal); G62.9 Polyneuropathy, unspecified ==

== ENCOUNTER 2022-07-23 20:49 | Emergency (ER) | payer OTHER ==
[~2022-07-23] VITALS: Ht 147.3 cm; Wt 74.8 kg
[2022-07-23] MEDS ORDERED: PROVENTIL HFA6.7 GM PO (21:03)
[2022-07-23] MEDS ORDERED: VIBRA-TAB100 MG PO (21:03)
[2022-07-23] MEDS ORDERED: PREDNISONE10 MG PO (21:03)
[2022-07-23 21:07] VITALS: BP 190/62
== END 2022-07-23 21:24 | disposition home or self-care (01) ==
LOC: ED 20:49
DX: J40 Bronchitis, not specified as acute or chronic (principal); J15.8 Pneumonia due to other specified bacteria; Z88.8 Allergy status to other drugs, medicaments and biological substances; Z88.2 Allergy status to sulfonamides; Z88.1 Allergy status to other antibiotic agents; Z79.899 Other long term (current) drug therapy; Z79.82 Long term (current) use of aspirin; Z90.49 Acquired absence of other specified parts of digestive tract; Z90.710 Acquired absence of both cervix and uterus; Z98.51 Tubal ligation status; Z98.890 Other specified postprocedural states; Z87.891 Personal history of nicotine dependence

== ENCOUNTER → 2023-07-22 | Outpatient (CLI) | payer OTHER ==
[~2023-07-22] MED LIST changes: +AMLODIPINE BESYL5 MG PO; +ARNUITY ELLIP200 MCG INH; +ARTHRITIS PAIN150 GM T; +ASPIRIN81 M1 PO; +BUSPIRONE HCL10 MG PO; +ESCITALOPRAM OX20 MG PO; +LIPITOR80 MG PO; +MS CONTIN30 MG PO; +NITROSTAT0.4 MG SL; +OMEPRAZOLE40 MG PO; +ONDANSETRON8 MG PO; +PROVENTIL HFA6.7 GM INH; +PROVENTIL HFA6.7 GM PO; +TRAZODONE50 MG PO; +VIBRA-TAB100 MG PO; +XIIDRA1 EACH OP
[2023-07-22 15:39] LABS: BASO # 0.1 10*3/uL (0.0-0.1); EOS # 0.4 10*3/uL (0.0-0.4); EOS % 4.3 % (1.0-4.0); LYMPH # 2.6 10*3/uL (1.3-4.4); LYMPH % 27.6 % (27.0-41.0); MEAN CELL VOLUME 91.1 fl (81.0-99.0); MEAN CORPUSCULAR HGB 28.5 pg (27.0-31.0); MEAN CORPUSCULAR HGB CONC 31.3 g/dl (33.0-37.0); MEAN PLATELET VOLUME 10.6 fl (9.6-12.3); MONO # 1.1 10*3/uL (0.1-1.0); MONO % 11.2 % (3.0-9.0); NEUT # 5.3 10*3/uL (2.3-7.9); NEUT % 55.5 % (47.0-73.0); PLATELET COUNT AUTOMATED 257 10*3/uL (130-400); RED BLOOD COUNT 4.39 10*6/uL (4.10-5.10); RED CELL DISTRI WIDTH 13.5 % (0-14.5); WHITE BLOOD COUNT 9.5 10*3/uL (4.8-10.8)
[2023-07-22 16:15] LABS: ALKALINE PHOSPHATASE 93 U/L (46-116); BUN 6 mg/dl (9-23); CHLORIDE 102 mmol/L (98-107); SGPT/ALT 20 U/L (5-49); TOTAL PROTEIN 6.6 gm/dL (6.0-8.0)
== END | disposition home or self-care (01) ==
LOC: LAB 15:04
PROVIDERS: ATTEND Internal Medicine Nephrology
DX: K56.609 Unspecified intestinal obstruction, unspecified as to partial versus complete obstruction (principal); E87.6 Hypokalemia

== ENCOUNTER → 2023-08-17 | Outpatient (CLI) | payer OTHER ==
[2023-08-17 14:14] LABS: BASO # 0.1 10*3/uL (0.0-0.1); EOS # 0.4 10*3/uL (0.0-0.4); EOS % 3.4 % (1.0-4.0); HEMATOCRIT 40.2 % (37.0-47.0); LYMPH % 27.8 % (27.0-41.0); MEAN CELL VOLUME 89.5 fl (81.0-99.0); MEAN CORPUSCULAR HGB 28.1 pg (27.0-31.0); MEAN CORPUSCULAR HGB CONC 31.3 g/dl (33.0-37.0); MEAN PLATELET VOLUME 11.2 fl (9.6-12.3); MONO % 9.2 % (3.0-9.0); NEUT # 6.2 10*3/uL (2.3-7.9); NEUT % 58.3 % (47.0-73.0); PLATELET COUNT AUTOMATED 211 10*3/uL (130-400); RED BLOOD COUNT 4.49 10*6/uL (4.10-5.10); RED CELL DISTRI WIDTH 12.9 % (0-14.5); WHITE BLOOD COUNT 10.6 10*3/uL (4.8-10.8)
[2023-08-17 14:43] LABS: ALKALINE PHOSPHATASE 93 U/L (46-116); BUN 6 mg/dl (9-23); CHLORIDE 101 mmol/L (98-107); POTASSIUM 4.1 mmol/L (3.4-5.1); SGPT/ALT 15 U/L (5-49); TOTAL PROTEIN 6.4 gm/dL (6.0-8.0)
== END | disposition home or self-care (01) ==
LOC: LAB 13:47
PROVIDERS: ATTEND Psychiatry & Neurology Neurology
DX: I67.83 Posterior reversible encephalopathy syndrome (principal)

== ENCOUNTER → 2023-08-25 | Outpatient (CLI) | payer OTHER ==
[2023-08-25 16:05] LABS: ALKALINE PHOSPHATASE 101 U/L (46-116); BUN < 5 mg/dl (9-23); CHLORIDE 102 mmol/L (98-107); POTASSIUM 4.1 mmol/L (3.4-5.1); SGPT/ALT 17 U/L (5-49); TOTAL PROTEIN 6.4 gm/dL (6.0-8.0); URIC ACID 5.5 mg/dL (3.1-7.8)
== END ==
LOC: LAB 15:27
PROVIDERS: ATTEND Podiatrist
DX: M10.9 Gout, unspecified (principal); M10.00 Idiopathic gout, unspecified site

== ENCOUNTER → 2023-08-31 | Outpatient (CLI) | payer OTHER | END | disposition home or self-care (01) | LOC: US 15:23 | PROVIDERS: ATTEND Podiatrist | DX: M79.604 Pain in right leg (principal); M79.89 Other specified soft tissue disorders; R06.02 Shortness of breath; J44.9 Chronic obstructive pulmonary disease, unspecified ==

== ENCOUNTER → 2023-09-03 | Outpatient (CLI) | payer OTHER | END | disposition home or self-care (01) | LOC: MRI 01:31 | PROVIDERS: ATTEND Psychiatry & Neurology Neurology | DX: I67.83 Posterior reversible encephalopathy syndrome (principal); G93.9 Disorder of brain, unspecified ==

== ENCOUNTER 2024-01-02 23:14 | Emergency (ER) | payer OTHER ==
[~2024-01-02] VITALS: Ht 162.5 cm; Wt 72.6 kg
[2024-01-02 23:33] VITALS: BP 145/49
[2024-01-03] MEDS ORDERED: MEPERIDINE HYDROCHLORIDE 25 MG/1 ML VIAL IM ONE (00:10)
[2024-01-03] MEDS ORDERED: Promethazine Hydrochloride 25 MG/ML VIAL IM ONE (00:10)
== END 2024-01-03 00:30 | disposition home or self-care (01) ==
LOC: ED 23:14
DX: G89.29 Other chronic pain (principal); M54.50 Low back pain, unspecified; F32.A Depression, unspecified; F41.9 Anxiety disorder, unspecified; I25.2 Old myocardial infarction; I10 Essential (primary) hypertension; J44.9 Chronic obstructive pulmonary disease, unspecified; E78.00 Pure hypercholesterolemia, unspecified; K21.9 Gastro-esophageal reflux disease without esophagitis; Z91.018 Allergy to other foods; Z88.8 Allergy status to other drugs, medicaments and biological substances; Z98.51 Tubal ligation status; Z90.710 Acquired absence of both cervix and uterus; Z90.89 Acquired absence of other organs; Z95.5 Presence of coronary angioplasty implant and graft; Z90.49 Acquired absence of other specified parts of digestive tract; Z98.890 Other specified postprocedural states; Z87.891 Personal history of nicotine dependence

== ENCOUNTER → 2024-01-13 | Outpatient (CLI) | payer OTHER | END | disposition home or self-care (01) | LOC: LAB 12:11 | PROVIDERS: ATTEND Internal Medicine Nephrology | DX: R73.9 Hyperglycemia, unspecified (principal); E78.49 Other hyperlipidemia ==

== ENCOUNTER → 2024-04-27 | Outpatient (CLI) | payer OTHER ==
[2024-04-27 14:55] LABS: BASO # 0.1 10*3/uL (0.0-0.1); EOS # 0.4 10*3/uL (0.0-0.4); EOS % 3.5 % (1.0-4.0); HEMATOCRIT 38.7 % (37.0-47.0); MEAN CELL VOLUME 86.2 fl (81.0-99.0); MEAN CORPUSCULAR HGB 26.9 pg (27.0-31.0); MEAN CORPUSCULAR HGB CONC 31.3 g/dl (33.0-37.0); MEAN PLATELET VOLUME 11.3 fl (9.6-12.3); MONO # 0.9 10*3/uL (0.1-1.0); MONO % 7.9 % (3.0-9.0); NEUT % 60.1 % (47.0-73.0); PLATELET COUNT AUTOMATED 223 10*3/uL (130-400); RED BLOOD COUNT 4.49 10*6/uL (4.10-5.10); RED CELL DISTRI WIDTH 13.8 % (0-14.5); WHITE BLOOD COUNT 11.7 10*3/uL (4.8-10.8)
[2024-04-27 15:19] LABS: ALKALINE PHOSPHATASE 105 U/L (46-116); BUN 6 mg/dl (9-23); CHLORIDE 101 mmol/L (98-107); LDH 201 U/L (120-246); POTASSIUM 4.1 mmol/L (3.4-5.1); SGPT/ALT 18 U/L (5-49); TOTAL PROTEIN 6.7 gm/dL (6.0-8.0)
== END | disposition home or self-care (01) ==
LOC: LAB 14:06
PROVIDERS: ATTEND Internal Medicine Hematology & Oncology
DX: C92.10 Chronic myeloid leukemia, BCR/ABL-positive, not having achieved remission (principal)

== ENCOUNTER → 2024-05-26 | Outpatient (CLI) | payer OTHER | END | disposition home or self-care (01) | LOC: RAD 09:30 | PROVIDERS: ATTEND Internal Medicine Nephrology | DX: Z13.820 Encounter for screening for osteoporosis (principal); M81.0 Age-related osteoporosis without current pathological fracture; Z78.0 Asymptomatic menopausal state ==

== ENCOUNTER 2024-08-22 12:22 | Inpatient (IN) | payer OTHER ==
[~2024-08-22] VITALS: Ht 147.3 cm; Wt 79.4 kg
[2024-08-22 12:31] VITALS: BP 149/52
[2024-08-22 13:11] LABS: BASO # 0.1 10*3/uL (0.0-0.1); EOS # 0.4 10*3/uL (0.0-0.4); EOS % 3.6 % (1.0-4.0); HEMATOCRIT 36.4 % (37.0-47.0); MEAN CELL VOLUME 85.4 fl (81.0-99.0); MEAN CORPUSCULAR HGB 26.5 pg (27.0-31.0); MEAN PLATELET VOLUME 11.4 fl (9.6-12.3); MONO # 0.9 10*3/uL (0.1-1.0); MONO % 9.8 % (3.0-9.0); NEUT # 5.5 10*3/uL (2.3-7.9); NEUT % 57.5 % (47.0-73.0); PLATELET COUNT AUTOMATED 184 10*3/uL (130-400); RED BLOOD COUNT 4.26 10*6/uL (4.10-5.10); RED CELL DISTRI WIDTH 13.6 % (0-14.5); WHITE BLOOD COUNT 9.6 10*3/uL (4.8-10.8)
[2024-08-22 13:22] LABS: ACT PARTIAL THROMBO TIME 23.9 SECONDS (20.0-32.1)
[2024-08-22 13:44] LABS: ALKALINE PHOSPHATASE 97 U/L (46-116); BUN 6 mg/dl (9-23); CHLORIDE 101 mmol/L (98-107); SGPT/ALT 13 U/L (5-49); TOTAL PROTEIN 6.5 gm/dL (6.0-8.0)
[2024-08-22 15:38] VITALS: BP 123/94
[2024-08-22] MEDS ORDERED: MORPHINE Sulfate 30 MG TAB PO PRN (16:40)
[2024-08-22] MEDS ORDERED: Albuterol Sulf/Ipratropium 3 ML VIAL NEB PRN (16:40)
[2024-08-22] MEDS ORDERED: Ondansetron Hydrochloride 4 MG TAB PO PRN (16:40)
[2024-08-22] MEDS ORDERED: BUDESONIDE 0.5 MG AMP NEB SCH (17:00)
[2024-08-22 20:03] VITALS: BP 153/53
[2024-08-22] MEDS ORDERED: busPIRone Hydrochloride 10 MG TAB PO SCH (22:00)
[2024-08-22] MEDS ORDERED: traZODone Hydrochloride 50 MG TAB PO SCH (22:00)
[2024-08-23 00:03] VITALS: BP 108/47
[2024-08-23 03:54] VITALS: BP 123/40
[2024-08-23] MEDS ORDERED: OMEPRAZOLE 20 MG CAP PO SCH (06:00)
[2024-08-23 06:15] LABS: BASO # 0.1 10*3/uL (0.0-0.1); BASO % 1.2 % (0.0-1.0); EOS # 0.3 10*3/uL (0.0-0.4); EOS % 3.3 % (1.0-4.0); HEMATOCRIT 36.8 % (37.0-47.0); MONO # 0.8 10*3/uL (0.1-1.0); MONO % 8.4 % (3.0-9.0); NEUT # 6.2 10*3/uL (2.3-7.9); NEUT % 66.4 % (47.0-73.0); PLATELET COUNT AUTOMATED 165 10*3/uL (130-400); RED BLOOD COUNT 4.23 10*6/uL (4.10-5.10); RED CELL DISTRI WIDTH 13.8 % (0-14.5); WHITE BLOOD COUNT 9.3 10*3/uL (4.8-10.8)
[2024-08-23 07:02] LABS: ALKALINE PHOSPHATASE 84 U/L (46-116); BUN 6 mg/dl (9-23); CHLORIDE 105 mmol/L (98-107); POTASSIUM 4.5 mmol/L (3.4-5.1); SGPT/ALT 11 U/L (5-49)
[2024-08-23 09:16] VITALS: BP 108/46
[2024-08-23] MEDS ORDERED: ASPIRIN ENTERIC COATED 81 MG TAB PO SCH (10:00)
[2024-08-23] MEDS ORDERED: Polyethylene Glycol 3350 17 GM PACKET PO SCH (10:00)
[2024-08-23] MEDS ORDERED: amLODIPine besylate 5 MG TAB PO SCH (10:00)
[2024-08-23] MEDS ORDERED: ISOSORBIDE MONONITRATE 30 MG TAB PO SCH (10:00)
[2024-08-23] MEDS ORDERED: ATORVASTATIN CALCIUM 80 MG TAB PO SCH (10:00)
[2024-08-23] MEDS ORDERED: FUROSEMIDE 20 MG TAB PO SCH (10:00)
[2024-08-23] MEDS ORDERED: ESCITALOPRAM OXALATE 20 MG TAB PO SCH (10:00)
[2024-08-23 13:28] VITALS: BP 111/50
[2024-08-23 22:00] VITALS: BP 169/57
[2024-08-24] VITALS: BP 168/67
[2024-08-24] MEDS ORDERED: MORPHINE Sulfate 2 MG/ML SYR IV PRN (00:20)
[2024-08-24 08:00] VITALS: BP 162/55
[2024-08-24] MEDS ORDERED: MORPHINE Sulfate 30 MG TAB PO SCH (10:05)
[2024-08-24 12:00] VITALS: BP 147/51
[2024-08-24 16:00] VITALS: BP 148/56
[2024-08-24 21:00] VITALS: BP 119/47
[2024-08-25] VITALS: BP 127/46
[2024-08-25 08:00] VITALS: BP 149/99
== END 2024-08-25 11:57 | disposition home or self-care (01) | DRG 306 ==
LOC: ED 12:22 → EDHOLD 15:50 → 5E 08-23 20:34
PROVIDERS: Internal Medicine; ADMIT Internal Medicine; ATTEND Internal Medicine
DX: I35.0 Nonrheumatic aortic (valve) stenosis (principal); I50.33 Acute on chronic diastolic (congestive) heart failure; C92.90 Myeloid leukemia, unspecified, not having achieved remission; Z68.45 Body mass index [BMI] 70 or greater, adult; I11.0 Hypertensive heart disease with heart failure; F32.9 Major depressive disorder, single episode, unspecified; J44.9 Chronic obstructive pulmonary disease, unspecified; I25.10 Atherosclerotic heart disease of native coronary artery without angina pectoris; G89.29 Other chronic pain; M54.9 Dorsalgia, unspecified; K57.30 Diverticulosis of large intestine without perforation or abscess without bleeding; K21.9 Gastro-esophageal reflux disease without esophagitis; F41.9 Anxiety disorder, unspecified; E78.5 Hyperlipidemia, unspecified; E66.01 Morbid (severe) obesity due to excess calories; N32.81 Overactive bladder; Z88.8 Allergy status to other drugs, medicaments and biological substances; Z91.09 Other allergy status, other than to drugs and biological substances; Z79.899 Other long term (current) drug therapy; Z79.01 Long term (current) use of anticoagulants; Z79.2 Long term (current) use of antibiotics; Z98.891 History of uterine scar from previous surgery; Z90.49 Acquired absence of other specified parts of digestive tract; Z90.710 Acquired absence of both cervix and uterus; Z87.891 Personal history of nicotine dependence; Z82.49 Family history of ischemic heart disease and other diseases of the circulatory system; Z82.5 Family history of asthma and other chronic lower respiratory diseases; Z83.3 Family history of diabetes mellitus; Z86.73 Personal history of transient ischemic attack (TIA), and cerebral infarction without residual deficits; Z85.3 Personal history of malignant neoplasm of breast

== ENCOUNTER → 2025-04-11 | Outpatient (CLI) | payer OTHER | END | disposition home or self-care (01) | LOC: US 00:37 | PROVIDERS: ATTEND Nurse Practitioner Family | DX: R55 Syncope and collapse (principal) ==